=== PATIENT | male | born 1950 | race Caucasian/White ===

== ENCOUNTER 2024-04-26 18:47 | Inpatient (IN) | payer MEDICARE, MEDICAID, SELFPAY ==
--- NOTE | 2024-04-26 18:50 | XR_ITS ---
Examination: Foot, left, 3 views Technique: AP, oblique, lateral views foot, 3 views Date and time of exam: April 26, 2024 1903 hrs. Indications: Injury to the foot today, foot pain Findings: Severe osteopenia Old fracture base first metatarsal No acute fracture Soft tissue vascular calcification 8mm plantar bony calcaneal spur Impression: No acute fracture Given the severe osteopenia, recommend short-term follow-up foot films as clinically warranted
--- NOTE | 2024-04-26 18:50 | XR_ITS ---
Examination:Left hip AP, lateral, AP pelvis 3 views Technique: Hip AP lateral, AP pelvis, 3 views Exam date and time:April 26, 2024 1906 hrs. Indications: Injury to the left hip today, left hip pain Findings: Status post operative reduction internal fixation healed left hip fracture No acute left hip fracture Right hip bones of the pelvis appear intact Impression: No acute hip or pelvic fracture noted If pain persists, recommend short-term follow-up properly centered AP pelvis.
--- NOTE | 2024-04-26 18:52 | EDNOTE_ITS ---
ED General RME/HPI General Chief complaint: Urogenital-Male Stated complaint: PAINFUL URINATION Time Seen by Provider: 04/26/24 18:48 Arrival date/time: 04/26/24 18:47 RME / HPI RME / HPI narrative: 74-year-old male patient with significant history of hypertension, urinary incontinence, diabetes mellitus, was brought in by EMS for dysuria. Patient's been having dysuria for the last 3 days, severity moderate. Also complained of pain to the left hip, according to him he had a surgery on the left hip few months ago. Also complained of pain to the left foot after bumping to the wheelchair. Denies any fever denies any vomiting denies any abdominal pain. Patient lives alone, nonambulatory, on a wheelchair. Related Data Home Medications ?Medication ?Instructions ?Recorded ?Confirmed fluconazole 200 mg tablet 400 mg PO HS ##0 09/18/12 01/16/24 amlodipine 10 mg tablet (Norvasc) 10 mg PO QDAY #0 tabs 09/10/13 01/16/24 multivitamin-ferrous 1 tab PO QDAY 04/09/18 01/16/24 fumarate-folic acid 18 mg-400 mcg tablet (Multi-Day with Iron) omega 3-dha 500 mg-epa 100 mg-fish 1 cap PO QDAY 04/09/18 01/16/24 oil capsule sitagliptin phosphate 50 1 tab PO BID 04/09/18 01/16/24 mg-metformin 1,000 mg tablet psyllium husk 0.52 gram capsule 0.52 g PO QDAY 07/05/18 01/16/24 (Daily Fiber) tamsulosin 0.4 mg capsule 0.4 mg PO QDAY 07/05/18 01/16/24 finasteride 5 mg tablet 5 mg PO QDAY 11/19/18 01/16/24 acetaminophen 650 mg 650 mg PO Q8H PRN Pain 01/16/24 01/16/24 tablet,extended release bisacodyl 10 mg rectal suppository 10 mg ME QDAY PRN Constipation 01/16/24 01/16/24 (Dulcolax (bisacodyl)) ferrous sulfate 325 mg (65 mg 325 mg PO QDAY 01/16/24 01/16/24 iron) tablet ondansetron HCl 4 mg tablet 4 mg PO Q6H PRN Nausea 01/16/24 01/16/24 tramadol 50 mg tablet 50 mg PO Q8H PRN Pain 01/16/24 01/16/24 Previous Rx's ?Medication ?Instructions ?Recorded apixaban 2.5 mg tablet (Eliquis) 2.5 mg PO BID #28 tabs 01/03/24 ciprofloxacin HCl 500 mg tablet 500 mg PO BID #14 tabs 01/18/24 (Cipro) Allergies Allergy/AdvReac Type Severity Reaction Status Date / Time No Known Allergies Allergy Verified 01/16/24 10:13 Review of Systems Review of Systems Narrative Review of Systems: Review of system reviewed and within normal limits except mentioned in HPI ED Exam Narrative Physical exam: VITAL SIGNS: Reviewed. GENERAL APPEARANCE: Alert and interactive, follows commands, no acute distress, HEAD AND FACE: Non-traumatic. ENT: PERRL, pink conjunctivitis, eyelid no trauma, Mucous membrane moist. NECK: Supple, nontender, no nuchal rigidity. CHEST: No tenderness, no crepitus, no paradoxical movement, no retractions. LUNGS: Clear, well ventilated, symmetric, no rales, no wheezing, no ronchi, no stridor, good breath sounds bilaterally. HEART: Regular rate, regular rhythm, no murmur, no gallops. ABDOMEN: Soft, positive bowel sounds, nondistended, no guarding, nontender, no rebound, no masses, RECTAL: Deferred. GENITAL: Deferred. NEUROLOGICAL: Gross motor function intact sensory function intact, Appropriate for age. MUSCULOSKELETAL: low back nontender, full range of motion. EXTREMITIES: Abrasion noted on the toes, nontender, full range of motion. SKIN: Color pink, dry, multiple stage II pressure ulcer noted on the sacrum and perineal area LYMPHATICS: Deferred. Course Quality Measures none Orders Category Date Time Status COVID-19 Screening Questionnaire NOW Care 04/26/24 22:28 Active Decision to Admit X1 Care 04/26/24 22:28 Completed EKG (ED ONLY) *Do not use* NOW Care 04/26/24 20:44 Completed Smith [Urinary Catheter] QS Care 04/26/24 22:02 Active Smith to [place] Routine Care 04/26/24 21:34 Ordered In and Out Catheter X1 Care 04/26/24 18:52 Completed Insert IV NOW Care 04/26/24 20:[address] abdomen pelvis wo con Stat Exams 04/26/24 20:51 Completed EKG (ED Only) Stat Exams 04/26/24 20:43 Draft XR foot comp LT min 3V Stat Exams 04/26/24 18:50 Completed XR hip LT w pelvis 2-3V Stat Exams 04/26/24 18:50 Completed Blood Culture (Lab) Stat Lab 04/26/24 21:31 Received CBC [CBC] Stat Lab 04/26/24 19:36 Completed CMP [Comprehensive Metabolic Panel] Stat Lab 04/26/24 19:36 Completed Lactate (Lactic Acid) Stat Lab 04/26/24 21:31 Completed Procalcitonin Stat Lab 04/26/24 21:31 Completed UA, C/S IF [Urinalysis, C/S if Indicated] Stat Lab 04/26/24 19:25 Completed Urine Culture Stat Lab 04/26/24 19:25 Received Piper/Tazo Inj [Zosyn Inj] 3.375 gm Med 04/26/24 21:29 Discontinued Sodium Chloride 0.9% (P) [Ns 0.9% (P)] 50 ml IV X1 Sod Polystyrene Sulfon Susp [Kayexalate Susp] Med 04/26/24 20:42 Discontinued 30 gm PO X1 ONE Sodium Chloride 0.9% 1000 ml [Ns] 1,000 ml Med 04/26/24 21:34 Discontinued IV 999 mls/hr cefTRIAXone/D5w 1gm IV premix [Rocephin/D5w 1gm IV Med 04/26/24 20:43 Discontinued premix] 50 ml IV X1 Vital Signs Vital signs: Vital Signs Temperature 98.8 F 04/26/24 19:03 Pulse Rate 76 04/26/24 19:03 Respiratory Rate 17 04/26/24 19:03 Blood Pressure 105/72 04/26/24 19:03 Pulse Oximetry (%) 99 04/26/24 19:03 Oxygen Delivery Method Room Air 04/26/24 19:03 [facility] Patient data External records reviewed:: None Clinical information provided by:: none Social determinants that could affect healthcare access:: none Patient has the following chronic illnesses:: Diabetes, hypertension How is presenting disease/condition affected by chronic disease/condition?: e xacerbated by Evaluation data The following diagnostics were reviewed and interpreted by me:: lab results, radiology exam(s) and EKG tracing(s) Lab and/or radiology exams considered but not ordered:: None Interpretation Summary: Laboratory workup significant for leukocytosis of 18.4, creatinine is 1.9, BUN of 35. Potassium of 5.5. Patient urinalysis is significant for UTI, WBC count of 4325., Positive leukocyte esterase, WBC count is 248 EKG as interpreted by me shows sinus rhythm, ventricular rate of 98 bpm, ME interval 196 MS, no ST segment elevation depression noted. CT scan of the abdomen and pelvis showed Consider hepatobiliary sonography to exclude gallstones Left ureteral stent although persistent moderate hydronephrosis Persistent 7 mm calculus mid left ureter Left pyelonephritis Severe emphysematous cystitis X-ray of the foot came back unremarkable. X-ray of the hip came back unremarkable. Medications Medications considered but not ordered:: None Medication administrations:: Medication Administration History Discontinued Medications Ceftriaxone Sodium/Dextrose (Rocephin/D5w 1gm Iv Premix) 50 mls @ 100 mls/hr IV X1 ONE Stop: 04/26/24 21:12 Last Admin: 04/26/24 21:52 Dose: Not Given Documented By: ROCÍO Non-Admin Reason: Cancelled by Provider Piperacillin Sod/Tazobactam (Sod 3.375 gm/ Sodium Chloride) 50 mls @ 100 mls/hr IV X1 ONE Stop: 04/26/24 21:58 Last Infusion: 04/26/24 22:44 Dose: Infused Documented By: Admin: 04/26/24 21:49 Dose: 100 mls/hr Documented By: ROCÍO Sodium Chloride (Ns) 1,000 mls @ 999 mls/hr IV .Q1H1M ONE Stop: 04/26/24 22:34 Last Admin: 04/26/24 21:50 Dose: 999 mls/hr Documented By: ROCÍO Sodium Polystyrene Sulfonate (Sod Polystyrene Sulfon Susp 15 Gm/60 Ml Btl) 30 gm PO X1 ONE Stop: 04/26/24 20:43 Last Admin: 04/26/24 21:51 Dose: 30 gm Documented By: ROCÍO IV fluids, Kayexalate, IV Zosyn also. Consultations Consultation(s) initiated? (list below): Yes Consultation #1 (Physician, Specialty, Details): Spoke with urologist on-call a in [facility], and told me that patient is to be admitted in this hospital there is no need to transfer and continue IV antibiotic and Smith catheter. Diagnosis Differential Diagnosis ED Complaint MDM: Emphysematous cystitis, UTI, acute pyelonephritis, ureterolithiasis Most likely diagnosis given after review of the tests above:: Emphysematous cystitis, UTI, acute pyelonephritis, ureterolithiasis Admission Indicated Admission indicated?: indicated Explain why admission is indicated or not indicated:: Patient is to be admitted for IV antibiotic and hydration and monitoring closely. Admission Request Was there a request for admission?: Yes Admission Attestation Admission request attestation: Discussed case with [] from Hospitalist service regarding admission. Discussed patients ED course, exam findings, labs, and radiology results. The Hospitalist [agrees,declines] to accept the patient for admission. Disposition Plan Disposition Plan: Admit Medical Decision Making MDM Narrative MDM Narrative: 74-year-old male patient with significant history of hypertension, urinary incontinence, diabetes mellitus, was brought in by EMS for dysuria. Patient's been having dysuria for the last 3 days, severity moderate. Also complained of pain to the left hip, according to him he had a surgery on the left hip few months ago. Also complained of pain to the left foot after bumping to the wheelchair. Denies any fever denies any vomiting denies any abdominal pain. Patient lives alone, nonambulatory, on a wheelchair. I spoke with on-call urologist on-call urologist in [facility] and told me that patient does not need to be transferred, just continue IV antibiotic and can call him anytime for questions. Patient received IV fluids, IV Zosyn, and Smith catheter inserted. Smith catheter was inserted, and draining more than 300 cc of thick yellowish urine looks like pus in the urine. I personally spoke with Dr Rojas , urologist of this patient, and told me that patient can be admitted in this hospital, give IV Zosyn IV fluids and continue the Smith. And asked the hospitalist to call him if you have questions. Dr. Morton talked to urologist, and initially agreed to admit the patient. However according to Dr. Morton ,the resident's is concern and have a push back on this admission. They are asking me to seek another opinion from third urologist if the patient can be admitted in this hospital or transferred. Case discussed with DR Lea and he will take care of the issues. Differential Diagnosis Differential Diagnosis: Emphysematous cystitis, UTI, acute pyelonephritis, ureterolithiasis Lab Data 04/26/24 19:36 04/26/24 19:36 Labs: Lab Results 04/26/24 04/26/24 04/26/24 Range/Units 19:25 19:36 21:31 WBC 18.4 H (3.8-10.6) Thou/mm3 RBC 3.76 L (4.50-5.90) Miln/mm3 Hgb 11.0 L (13.5-16.0) g/dL Hct 33.4 L (41.0-53.0) % MCV 89 (80-100) fL MCH 29.3 (25.0-35.0) pg MCHC 32.9 (31.0-37.0) g/dl RDW Std Deviation 49.2 H (35.1-43.9) fL Plt Count 374 (140-440) Thou/mm3 Neut % (Auto) 80 (37-80) % Lymph % (Auto) 11 (10-50) % [place] % (Auto) 6 (0-12) % Eos % (Auto) 1 (0-10) % Baso % (Auto) 0 (0-2.5) % Neut # (Auto) 14.6 H (1.8-7.7) Thou/mm3 Lymph # (Auto) 2.0 (1.0-4.8) Thou/mm3 [place] # (Auto) 1.1 H (0.0-0.8) Thou/mm3 Eos # (Auto) 0.1 (0.0-0.5) Thou/mm3 Baso # (Auto) 0.1 (0.0-0.2) Thou/mm3 Immature Gran # (Auto) 0.39 H (0.00-0.00) Thou/mm3 Absolute Nucleated RBC 0.00 (0.00-0.00) Thou/mm3 Immature Gran % 2 H (0-0) % Nucleated RBC % 0 (0) /100 WBC Sodium 134 L (136-145) mMol/L Potassium 5.5 H (3.4-5.1) mMol/L Chloride 107 (98-107) mMol/L Carbon Dioxide 18.9 L (20.0-31.0) mMol/L Anion Gap 8 (7-16) BUN 35 H (9-23) mg/dL Creatinine 1.9 H (0.6-1.3) mg/dL Estim Creat Clear Calc 36.9 L (>60) mL/min eGFR 36 L (60 - ) See Note BUN/Creatinine Ratio 18 (12-20) Ratio Glucose 181 H (74-106) mg/dL Calculated Osmolality 281 (275-295) Lactic Acid 2.0 (0.4-2.0) mMol/L Calcium 10.0 (8.3-10.6) mg/dL Corrected Calcium 10.0 (8.5-10.1) mg/dL Total Bilirubin 0.4 (0.3-1.2) mg/dL AST < 8 (0-34) U/L ALT 18 (10-49) U/L Alkaline Phosphatase 166 H (46-116) U/L Total Protein 7.7 (5.7-8.2) gm/dL Albumin 4.1 (3.4-4.8) gm/dL Globulin 3.6 H (2.3-3.5) gm/dL Albumin/Globulin Ratio 1.1 L (1.2-2.2) Procalcitonin 0.18 (0.0-0.49) ng/ml Ur Collection Type Clean Catch Urine Color Yellow (Lt Yel-Yel) Urine Clarity Turbid A (Clear/Hazy) Urine pH 6.0 (5.0-7.0) Ur Specific [place] 1.013 (1.001-1.035) Urine Protein 2+ A (Neg - Trace) Urine Glucose (UA) Negative (Negative) Urine Ketones Negative (Negative) Urine Blood 3+ A (Negative) Urine Nitrite Negative (Negative) Urine Bilirubin Negative (Negative) Urine Urobilinogen (Auto) Negative (0.0-1.0) mg/dL Ur Leukocyte Esterase Positive (Negative) Urine RBC 248 H (0-3) /hpf Urine WBC 4325 H (0-5) /hpf Ur Squamous Epith Cells 0 (0-5) /hpf Urine Bacteria None (None) Ur Culture Indicated? Yes Discharge Plan Plan Patient Disposition: Admit Acute Care w/in Hospital Prescriptions/Referrals Prescriptions/Med Rec: No Action finasteride 5 mg tablet 5 mg PO QDAY fluconazole 200 MG tablet 400 mg PO HS Qty: 0 Patient Comments: patient does not now medications amlodipine [Norvasc] 10 MG tablet 10 mg PO QDAY Qty: 0 Patient Comments: patient does not now medications sitagliptin phos-metformin 50-1,000 mg Tablet 1 tab PO BID Patient Comments: patient does not now medications Multi-Day with Iron 18-400 mg-mcg Tablet 1 tab PO QDAY Patient Comments: patient does not now medications omega 4-ryo-nyt-fish oil 500-100 mg Capsule 1 cap PO QDAY Patient Comments: patient does not now medications tamsulosin 0.4 mg Capsule 0.4 mg PO QDAY psyllium husk [Daily Fiber] 0.52 gram Capsule 0.52 g PO QDAY ondansetron HCl [Zofran] 4 mg Tablet 4 mg PO Q6H PRN (Reason: Nausea) tramadol 50 mg Tablet 50 mg PO Q8H PRN (Reason: Pain) acetaminophen 650 mg Tablet Extended Release 650 mg PO Q8H PRN (Reason: Pain) bisacodyl [Dulcolax (bisacodyl)] 10 mg Suppository 10 mg ME QDAY PRN (Reason: Constipation) ferrous sulfate 325 mg (65 mg iron) Tablet 325 mg PO QDAY ciprofloxacin HCl [Cipro] 500 mg tablet 500 mg PO BID Qty: 14 0RF Eliquis 2.5 mg Tablet 2.5 mg PO BID Qty: 28 0RF Hold Instructions: Resume on 01/21/24. Referrals: No Primary/Family,Physician [Primary Care Provider] - In 1 week Problem List Clinical Impression: Emphysematous cystitis, Acute pyelonephritis, Ureterolithiasis Patient/Caregiver Discharge Instructions Print Language: Macedonian Stand Alone Forms: Alina Award Info., Patient Portal Info Letter
[2024-04-26 19:03] VITALS: BP 105/72; PULSE 76; RESP 17; TEMP 37.1; O2SAT 99
[2024-04-26 19:13] VITALS: PULSE 95; RESP 18; O2SAT 98
[2024-04-26 19:52] LABS: Collection Type, Urine Clean Catch; Squamous Epithelial Cell,Urine 0 /hpf (0-5)
[2024-04-26 19:54] VITALS: BMI 24.4
[2024-04-26 19:54] LABS: Basophils # (Auto) 0.1 Thou/mm3 (0.0-0.2); Basophils % (Auto) 0 % (0-2.5); Eosinophils # (Auto) 0.1 Thou/mm3 (0.0-0.5); Eosinophils % (Auto) 1 % (0-10); Hematocrit 33.4 % (41.0-53.0); Immature Granulocytes % (Auto) 2 % (0-0); Immature Granulocytes Auto 0.39 Thou/mm3 (0.00-0.00); Lymphocytes % (Auto) 11 % (10-50); Mean Corpuscular HGB Conc 32.9 g/dl (31.0-37.0); Mean Corpuscular Hemoglobin 29.3 pg (25.0-35.0); Mean Corpuscular Volume 89 fL (80-100); Monocytes # (Auto) 1.1 Thou/mm3 (0.0-0.8); Monocytes % (Auto) 6 % (0-12); Neutrophils # (Auto) 14.6 Thou/mm3 (1.8-7.7); Neutrophils % (Auto) 80 % (37-80); Nucleated Red Blood Cell % 0 /100 WBC (0); Platelet Count 374 Thou/mm3 (140-440); RDW Standard Deviation 49.2 fL (35.1-43.9); Red Blood Count 3.76 Miln/mm3 (4.50-5.90); White Blood Count 18.4 Thou/mm3 (3.8-10.6)
[2024-04-26 20:06] VITALS: BP 124/92; PULSE 97; RESP 17; TEMP 37.2; O2SAT 99
[2024-04-26 20:19] LABS: Alanine Aminotransferase 18 U/L (10-49); Albumin, Serum 4.1 gm/dL (3.4-4.8); Albumin/Globulin Ratio 1.1 (1.2-2.2); Alkaline Phosphatase 166 U/L (46-116); Anion Gap 8 (7-16); Aspartate Amino Transferase < 8 U/L (0-34); BUN/Creatinine Ratio 18 Ratio (12-20); Bilirubin,Total 0.4 mg/dL (0.3-1.2); Blood Urea Nitrogen 35 mg/dL (9-23); Carbon Dioxide 18.9 mMol/L (20.0-31.0); Chloride 107 mMol/L (98-107); Creatinine (Component) 1.9 mg/dL (0.6-1.3); Estimated Creatinine Clearance 36.9 mL/min (>60); Globulin 3.6 gm/dL (2.3-3.5); Glucose 181 mg/dL (74-106); Osmolality,Calculated 281 (275-295); Potassium 5.5 mMol/L (3.4-5.1); Sodium 134 mMol/L (136-145); Total Protein 7.7 gm/dL (5.7-8.2); eGFR 36 See Note
[2024-04-26 20:20] LABS: Bilirubin,Urine Negative (Negative); Blood,Urine 3+ (Negative); Glucose, Urine Negative (Negative); Ketones,Urine Negative (Negative); Leukocyte Esterase,Urine Positive (Negative); Nitrite,Urine Negative (Negative); Protein,Urine 2+ (Neg - Trace); RBC,Urine 248 /hpf (0-3); Specific Gravity,Urine 1.013 (1.001-1.035); Urobilinogen,Urine Negative mg/dL (0.0-1.0); WBC,Urine 4325 /hpf (0-5)
[2024-04-26 20:21] LABS: Clarity,Urine Turbid (Clear/Hazy); Color,Urine Yellow (Lt Yel-Yel); Culture Indicated,Urine Yes
--- NOTE | 2024-04-26 20:43 | EKG_ITS ---
[facility] Test Date: 2024-04-26 Pat Name: JANE OWENS Department: Room: - Gender: Male [employer] Winder: : 1950 Requested By: Ambar Gandhi Order Number: [id number] Reading MD: Ambar Gandhi Measurements Intervals [place] Rate: 98 P: 65 CO: 196 QRS: 56 QRSD: 77 T: 85 QT: 322 QTc: 412 Interpretive Statements SINUS RHYTHM Compared to ECG 05/24/2018 19:22:18 Sinus tachycardia no longer present T-wave abnormality no longer present /store/S0/[id number]/[id number].pdf
--- NOTE | 2024-04-26 20:51 | XR_ITS ---
Examination: CT abdomen and pelvis without contrast. Coronal 3-D reconstructions. Sagittal 2-D reconstructions. Date and time of exam:April 26, 2024 2100 hrs. Comparison December 31, 2023 Indications: Abdominal pain flank pain urinary tract infections this week, history advanced left hydronephrosis 7 mm distal left ureteral calculus on CT abdomen pelvis December 31, 2023 CTDI: vol (mGy): 16 DLP: (mGycm): 835 Technique: Axial images of the abdomen have been obtained, 3 mm slice thickness Intravenous contrast material has not been administered. Low dose protocols were performed. One or more of the following dose reduction techniques were used; automated exposure control, adjustment of the mA and/or KV according to patient size, use of iterative reconstruction technique. Findings: No focal liver lesions Suspicious for small gallstones versus gallbladder sludge Ectatic calcified splenic artery Spleen is not enlarged Bilateral renal cortical thinning Left ureteral stent with persistent moderate hydronephrosis and persistent 7 mm calculus mid left ureter image 103 Right common iliac artery stent Severe emphysematous cystitis, air in the urinary bladder wall and marked urinary bladder wall thickening Right ventricular peritoneal shunt tube Significant prostatomegaly with prostate calcifications Advanced degenerative disc disease L2-L3, chronic osteoporotic compression L1 Impression: Consider hepatobiliary sonography to exclude gallstones Left ureteral stent although persistent moderate hydronephrosis Persistent 7 mm calculus mid left ureter Left pyelonephritis Severe emphysematous cystitis
--- NOTE | 2024-04-26 21:48 | PC.NURSE ---
[facility] FAXED PAPERWORK FOR POSSIBLE UROLOGY TRANSFER
[2024-04-26] MEDS: PIPER/TAZO INJ 3.375 GM in SODIUM CHLORIDE 0.9% (P) 50 ML IV (21:49)
[2024-04-26] MEDS: SODIUM CHLORIDE 0.9% 1000 ML 1,000 ML 999 ML IV (21:50)
[2024-04-26] MEDS: SOD POLYSTYRENE SULFON SUSP 15 GM/60 ML BTL 30 GM PO (21:51)
[2024-04-26 22:32] LABS: Procalcitonin 0.18 ng/ml (0.0-0.49)
--- NOTE | 2024-04-26 23:31 | PD.RESCONSUL ---
HPI Data of Consult Primary Care Provider: Physician No Primary/Family Consult Narrative History of present illness: We received a call regarding a 74-year-old male with a medical history significant for hypertension, urinary incontinence, diabetes mellitus, multiple episodes of urinary tract infections , and recurrent nephrolithiasis, status post lithotripsy and stent placement. The patient presented to the Emergency Department with acute encephalopathy. He reported a decreased appetite, nausea, vomiting, and generalized weakness. Clinical Findings on Presentation: Upon presentation, the patient was noted to be acutely encephalopathic. Vital signs were stable, but laboratory results revealed the following: Leukocytosis: WBC 18.4 Anemia: Hemoglobin 11.0, Hematocrit 33.4 Electrolyte abnormalities: Hyponatremia Hyperkalemia (Potassium 5.5) Low bicarbonate (CO2 18.9) Acute Kidney Injury (JINA): Creatinine 1.9, BUN 35, eGFR 36 Urinalysis (UA): Turbid urine RBCs 248 Leukocyte esterase (LE) positive WBCs 4325 Imaging Findings: A CT abdomen/pelvis was performed, which revealed the following findings: Left ureteral stent with persistent moderate hydronephrosis A 7 mm calculus in the mid left ureter Left pyelonephritis Severe emphysematous cystitis Initial Management & Consultation: The ED team initially attempted to transfer the patient to [facility] for higher-level care. However, after consultation with the urology on-call physician, who indicated that the patient did not require transfer, continue IV antibiotics, and with input from Dr. Rojas, the patient's urologist, who recommended conservative management at this point ,until he sees the patient earliest on Sunday. Despite these opinions, given the severity of the CT findings (obstructive nephrolithiasis causing hydronephrosis, pyelonephritis, emphysematous cystitis), the hospitalist team requested a third opinion regarding the need for transfer. The concern was that if the patient's condition worsened, we would not have access to urological or interventional radiology (IR) services for the next 48 hours, due to the weekend schedule. Request for Transfer: Considering the potential for deterioration, the lack of in-house urology services, and the unavailability of IR services for the next 48 hours, we sought a third opinion and made a request for the patient to be transferred to a facility with the necessary resources for advanced care. This was discussed with Dr. Morton (on-call hospitalist) and Dr. Do (hospitalist director), and the decision was made to pursue transfer and/or 3rd opinion. cc:: cc: Review of Systems Review of Systems Systems Reviewed: All systems reviewed, normal except as documented Exam Vital Signs Temp Pulse Resp BP Pulse Ox O2 Del Method 98.9 F 97 17 124/92 H 99 Room Air 04/26/24 20:06 04/26/24 20:06 04/26/24 20:06 04/26/24 20:06 04/26/24 20:06 04/26/24 20:06 Narrative Exam GENERAL: no acute distress, AAO x3, HEENT: Head AT/ NC. Mucous membranes moist. PERRL. NECK: Supple, no lymphadenopathy, no carotid bruits. CARDIOVASCULAR: RRR. Normal S1/S2, No m/r/g. No pitting edema of bilateral LEs. RESPIRATORY: CTAB. No wheezing, rhonchi, crackles. GASTROINTESTINAL: Abdomen soft,suprapubic tenderness noted,Smith noted, with repeat urine MUSCULOSKELETAL:? no visible joint swelling. NEUROLOGICAL: CN II-XII grossly intact Sensation intact, symmetric. PSYCHIATRIC: Awake and alert, not agitated, normal mood and affect. INTEGUMENTARY: No obvious rashes, no jaundice, normal turgor. Results Labs 04/26/24 19:36 04/26/24 19:36 Labs: Short CBC 04/26/24 Range/Units 19:36 WBC 18.4 H (3.8-10.6) Thou/mm3 Hgb 11.0 L (13.5-16.0) g/dL Hct 33.4 L (41.0-53.0) % Plt Count 374 (140-440) Thou/mm3 [facility] 04/26/24 19:36 Sodium 134 L Potassium 5.5 H Chloride 107 Carbon Dioxide 18.9 L BUN 35 H Creatinine 1.9 H Glucose 181 H Calcium 10.0 Liver Function 04/26/24 Range/Units 19:36 Total Bilirubin 0.4 (0.3-1.2) mg/dL AST < 8 (0-34) U/L ALT 18 (10-49) U/L Alkaline Phosphatase 166 H (46-116) U/L Albumin 4.1 (3.4-4.8) gm/dL Urine 04/26/24 Range/Units 19:25 Urine Color Yellow (Lt Yel-Yel) Urine Clarity Turbid A (Clear/Hazy) Urine pH 6.0 (5.0-7.0) Ur Specific [place] 1.013 (1.001-1.035) Urine Protein 2+ A (Neg - Trace) Urine Glucose (UA) Negative (Negative) Quality Measures Quality Measures none Advance care planning discussed with:: patient Medications Home Medications and Allergies Home Medications ?Medication ?Instructions ?Recorded ?Confirmed ?Type fluconazole 200 mg tablet 400 mg PO HS ##0 09/18/12 01/16/24 History amlodipine 10 mg tablet (Norvasc) 10 mg PO QDAY #0 tabs 09/10/13 01/16/24 History multivitamin-ferrous 1 tab PO QDAY 04/09/18 01/16/24 History fumarate-folic acid 18 mg-400 mcg tablet (Multi-Day with Iron) omega 3-dha 500 mg-epa 100 mg-fish 1 cap PO QDAY 04/09/18 01/16/24 History oil capsule sitagliptin phosphate 50 1 tab PO BID 04/09/18 01/16/24 History mg-metformin 1,000 mg tablet psyllium husk 0.52 gram capsule 0.52 g PO QDAY 07/05/18 01/16/24 History (Daily Fiber) tamsulosin 0.4 mg capsule 0.4 mg PO QDAY 07/05/18 01/16/24 History finasteride 5 mg tablet 5 mg PO QDAY 11/19/18 01/16/24 History acetaminophen 650 mg 650 mg PO Q8H PRN Pain 01/16/24 01/16/24 History tablet,extended release bisacodyl 10 mg rectal suppository 10 mg [place] QDAY PRN Constipation 01/16/24 01/16/24 History (Dulcolax (bisacodyl)) ferrous sulfate 325 mg (65 mg 325 mg PO QDAY 01/16/24 01/16/24 History iron) tablet ondansetron HCl 4 mg tablet 4 mg PO Q6H PRN Nausea 01/16/24 01/16/24 History tramadol 50 mg tablet 50 mg PO Q8H PRN Pain 01/16/24 01/16/24 History Allergies Allergy/AdvReac Type Severity Reaction Status Date / Time No Known Allergies Allergy Verified 01/16/24 10:13 Visit Medications Discontinued Medications Ceftriaxone Sodium/Dextrose (Rocephin/D5w 1gm Iv Premix) 50 mls @ 100 mls/hr IV X1 ONE Stop: 04/26/24 21:12 Last Admin: 04/26/24 21:52 Dose: Not Given Piperacillin Sod/Tazobactam (Sod 3.375 gm/ Sodium Chloride) 50 mls @ 100 mls/hr IV X1 ONE Stop: 04/26/24 21:58 Last Infusion: 04/26/24 22:44 Dose: Infused Sodium Chloride (Ns) 1,000 mls @ 999 mls/hr IV .Q1H1M ONE Stop: 04/26/24 22:34 Last Admin: 04/26/24 21:50 Dose: 999 mls/hr Sodium Polystyrene Sulfonate (Sod Polystyrene Sulfon Susp 15 Gm/60 Ml Btl) 30 gm PO X1 ONE Stop: 04/26/24 20:43 Last Admin: 04/26/24 21:51 Dose: 30 gm Assessment & Plan Plan We received a call regarding a 74-year-old male with a medical history significant for hypertension, urinary incontinence, diabetes mellitus, multiple episodes of urinary tract infections , and recurrent nephrolithiasis, status post lithotripsy and stent placement. The patient presented to the Emergency Department with acute encephalopathy. He reported a decreased appetite, nausea, vomiting, and generalized weakness. #Acute encephalopathy in the setting of UTI #UTI #JINA #Hydronephrosis #Acute unilateral obstructive uropathy #Acute pyelonephritis #Acute emphysematous cystitis Imaging Findings: A CT abdomen/pelvis was performed, which revealed the following findings: Left ureteral stent with persistent moderate hydronephrosis A 7 mm calculus in the mid left ureter Left pyelonephritis Severe emphysematous cystitis Initial Management & Consultation: The ED team initially attempted to transfer the patient to [facility] for higher-level care. However, after consultation with the urology on-call physician, who indicated that the patient did not require transfer, continue IV antibiotics, and with input from Dr. Rojas, the patient's urologist, who recommended conservative management at this point ,until he sees the patient earliest on Sunday. Despite these opinions, given the severity of the CT findings (obstructive nephrolithiasis causing hydronephrosis, pyelonephritis, emphysematous cystitis), the hospitalist team requested a third opinion regarding the need for transfer. The concern was that if the patient's condition worsened, we would not have access to urological or interventional radiology (IR) services for the next 48 hours, due to the weekend schedule. Request for Transfer: Considering the potential for deterioration, the lack of in-house urology services, and the unavailability of IR services for the next 48 hours, we sought a third opinion and made a request for the patient to be transferred to a facility with the necessary resources for advanced care. This was discussed with Dr. Morton (on-call hospitalist) and Dr. Do (hospitalist director), and the decision was made to pursue transfer and/or 3rd opinion. Patient care was discussed with attending physician Dr. Praveen Chang MD PGY-2 Attending Provider Attestation/Addendum I reviewed labs, imaging, EKG, home medications and prior available records. Face to face evaluation was performed by me. I have personally examined the patient and discussed assessment and plan with the IM team. I reviewed the resident note and agree with the plan with exceptions as below. Patient is a 74-year-old male with history of nephrolithiasis status post stent placement who presented with a chief complaint of left flank pain, dysuria, and fevers. He was found to have sepsis secondary to acute UTI. Sepsis secondary to acute UTI: CT scan of the abdomen/pelvis showed emphysematous cystitis and 7 mm stone with stent in place. Initially patient was planned for transfer. Discussed with the transfer center and [facility]: The urologist recommended no transfer but IV antibiotics and follow-up with urology Dr. Rojas. There was some concern that we need emergent urology service in just in case patient develops any sudden urologic obstruction that could lead to fluid blown sepsis/septic shock which will need emergent intervention. Discussed with medical reception specialist and hospital administration: Called Dr. Rojas again who confirmed that he will be able to see the patient and that there is no concern for obstruction at this time. Will start the patient on IV antibiotics. Continue IV fluids. Send urine and blood cultures. Treatment of fevers with Tylenol as needed. CKD stage IIIb: Creatinine appears to be close to baseline. Monitor kidney function. Avoid nephrotoxins. Renally dosed medications.
[2024-04-26 23:48] VITALS: BP 103/88; PULSE 93; RESP 17; TEMP 36.7; O2SAT 98
[2024-04-27] VITALS (12 sets, daily range): BP systolic 110–136; BP diastolic 81–94; PULSE 92–116; RESP 14–98; TEMP 36.1–36.7; O2SAT 96–99; BMI 24.4
--- NOTE | 2024-04-27 00:06 | PD.EDADDENDU ---
Emergency Room Addendum Addendum Narrative: I took over the care from Ambar Gandhi NP at 11 PM on 04/27/2024, see his notes for complete H&P and ED course. I discussed the case with our hospitalist. About the presentation and exam and diagnostics and treatments here. And need of further care in the hospital. Will accept the patient. Ricardo Lea MD
--- NOTE | 2024-04-27 00:42 | ESHP_ITS ---
Documentation for date of: 04/27/24 [facility] History of Present Illness History of present illness: This is a 74-year-old male with a significant medical history including hypertension, urinary incontinence, diabetes mellitus, recurrent urinary tract infections , and extensive nephrolithiasis, status post multiple lithotripsy procedures and stent placement. He is closely followed by outpatient urology Dr. Rojas, who did his urological procedures. The patient presented to the emergency department with altered mental status and dysuria for three days, that was progressively getting worse. On my evaluation, the patient was alert and oriented to person, place, and time and reiterated his urological history. He lives alone and uses a wheelchair due to left hip surgery following a fall. He also reported suprapubic pain, chills, nausea, vomiting, and decreased appetite but denied chest pain, palpitations, loss of consciousness, seizures, or other associated symptoms. Upon presentation patient was was slightly encephalopathic which resolved shortly after IV fluids and Smith placement, vital signs revealed leukocytosis with WBC 18.4, anemia, hemoglobin 11.0, hematocrit 33.4, electrolyte imbalances, hyponatremia, hyperkalemia potassium of 5.5, low bicarb 18.9, further labs revealed JINA with creatinine of 1.9, BUN is 35, EGFR 36, with UA revealed turbid urine, RBCs 248, LE positive, WBC 4325. Imaging findings: A CT abdomen/pelvis was performed, which revealed the following findings: Left ureteral stent with persistent moderate hydronephrosis A 7 mm calculus in the mid left ureter Left pyelonephritis Severe emphysematous cystitis ED Management: The ED team initially attempted to transfer the patient to [facility] for higher-level care. However, after consultation with the urology on-call physician, who indicated that the patient did not require transfer, continue IV antibiotics, and with input from Dr. Rojas, the patient's urologist, who recommended conservative management at this point ,until he sees the patient earliest on Sunday. Despite these opinions, given the severity of the CT findings (obstructive nephrolithiasis causing hydronephrosis, pyelonephritis, emphysematous cystitis), the hospitalist team requested a third opinion regarding the need for transfer. The concern was that if the patient's condition worsened, we would not have access to urological or interventional radiology (IR) services for the next 48 hours, due to the weekend schedule. Request for Transfer: Considering the potential for deterioration, the lack of in-house urology services, and the unavailability of IR services for the next 48 hours, we sought a third opinion and made a request for the patient to be transferred to a facility with the necessary resources for advanced care. This was discussed with Dr. Morton (on-call hospitalist) and Dr. Do (hospitalist director), and the decision was made to pursue transfer and/or 3rd opinion. Further: However Emergency department was not satisfied regarding our request, they escalated the matter to administration. This led to the [employer]AGE [employer] of [facility], Mrs. Claudia Sarmiento, personally reaching out to Dr. Do. Subsequently, urologist Dr. Rojas was contacted, and the patient?s hospital course and our concerns were thoroughly discussed. This included the unavailability of urological or interventional radiology services for the next [address] Rojas ultimately accepted the consultation and assured that the patient would be seen by him latest on Sunday. And stated that patient can be managed conservatively at this point. Admission: Eventually decision was made to admit patient for further management of UTI as well as JINA, hydronephrosis, unilateral obstructive uropathy and acute pyelonephritis, severe emphysematous cystitis treatment and management. In ED patient received Zosyn, NS, Kayexalate and was admitted for further management. PMH: As above PSH: Left total knee replacement, multiple back surgeries has multiple rods and screws in his back, removal of bone spurs from back SH: Denies smoking. No history of illicit drug use., Lives alone, uses wheelchair. FH: Nonsignificant Allergies: NKDA Review of Systems Review of Systems Systems Reviewed: All systems reviewed, normal except as documented Past Medical History Past Medical History NEUROLOGIC: Positive Neurological Disorders, Meningitis and Spinal Cord Injury CARDIAC: Positive Cardiac Disorders and Hypertension RESPIRATORY: Positive Sleep Apnea (CPAP) GASTROINTESTINAL: Positive Gastrointestinal Disorders and Obesity GENITOURINARY: Positive Genitourinary Disorders, Kidney Stones and Benign Prostatic Hyperplasia MUSCULOSKELETAL: Positive Musculoskeletal Disorders, Arthritis, Degenerative Disk Disease and Fractures ENDOCRINE: Positive Endocrine Disorders and Diabetes Mellitus Type 2 OTHER HISTORY: Positive Falls, Chicken Pox, Measles, Mumps and Rubella (F[place] Measles) Family History FAMILY HISTORY: Positive Family Cancer Surgical History SURGICAL: Positive Angiogram Exam Vital Signs Temp Pulse Resp BP Pulse Ox O2 Del Method 98.1 F 93 17 103/88 H 98 Room Air 04/26/24 23:48 04/26/24 23:48 04/26/24 23:48 04/26/24 23:48 04/26/24 23:48 04/26/24 23:48 Narrative Exam GENERAL: no acute distress, AAO x3, HEENT: Head AT/ NC. Mucous membranes moist. PERRL. NECK: Supple, no lymphadenopathy, no carotid bruits. CARDIOVASCULAR: RRR. Normal S1/S2, No m/r/g. No pitting edema of bilateral LEs. RESPIRATORY: CTAB. No wheezing, rhonchi, crackles. GASTROINTESTINAL: Abdomen soft,suprapubic tenderness noted,Smith noted, with repeat urine MUSCULOSKELETAL:? no visible joint swelling. NEUROLOGICAL: CN II-XII grossly intact Sensation intact, symmetric. PSYCHIATRIC: Awake and alert, not agitated, normal mood and affect. INTEGUMENTARY: No obvious rashes, no jaundice, normal turgor. Results: Labs 04/27/24 05:15 04/27/24 05:15 Labs: Short CBC 04/26/24 Range/Units 19:36 WBC 18.4 H (3.8-10.6) Thou/mm3 Hgb 11.0 L (13.5-16.0) g/dL Hct 33.4 L (41.0-53.0) % Plt Count 374 (140-440) Thou/mm3 BMP 04/26/24 19:36 Sodium 134 L Potassium 5.5 H Chloride 107 Carbon Dioxide 18.9 L BUN 35 H Creatinine 1.9 H Glucose 181 H Calcium 10.0 Liver Function 04/26/24 Range/Units 19:36 Total Bilirubin 0.4 (0.3-1.2) mg/dL AST < 8 (0-34) U/L ALT 18 (10-49) U/L Alkaline Phosphatase 166 H (46-116) U/L Albumin 4.1 (3.4-4.8) gm/dL Urine 04/26/24 Range/Units 19:25 Urine Color Yellow (Lt Yel-Yel) Urine Clarity Turbid A (Clear/Hazy) Urine pH 6.0 (5.0-7.0) Ur Specific [place] 1.013 (1.001-1.035) Urine Protein 2+ A (Neg - Trace) Urine Glucose (UA) Negative (Negative) Quality Measures Quality Measures none Advance care planning discussed with:: patient Medications Home Medications and Allergies Home Medications ?Medication ?Instructions ?Recorded ?Confirmed ?Type fluconazole 200 mg tablet 400 mg PO HS ##0 09/18/12 01/16/24 History amlodipine 10 mg tablet (Norvasc) 10 mg PO QDAY #0 tabs 09/10/13 01/16/24 History multivitamin-ferrous 1 tab PO QDAY 04/09/18 01/16/24 History fumarate-folic acid 18 mg-400 mcg tablet (Multi-Day with Iron) omega 3-dha 500 mg-epa 100 mg-fish 1 cap PO QDAY 04/09/18 01/16/24 History oil capsule sitagliptin phosphate 50 1 tab PO BID 04/09/18 01/16/24 History mg-metformin 1,000 mg tablet psyllium husk 0.52 gram capsule 0.52 g PO QDAY 07/05/18 01/16/24 History (Daily Fiber) tamsulosin 0.4 mg capsule 0.4 mg PO QDAY 07/05/18 01/16/24 History finasteride 5 mg tablet 5 mg PO QDAY 11/19/18 01/16/24 History acetaminophen 650 mg 650 mg PO Q8H PRN Pain 01/16/24 01/16/24 History tablet,extended release bisacodyl 10 mg rectal suppository 10 mg ID QDAY PRN Constipation 01/16/24 01/16/24 History (Dulcolax (bisacodyl)) ferrous sulfate 325 mg (65 mg 325 mg PO QDAY 01/16/24 01/16/24 History iron) tablet ondansetron HCl 4 mg tablet 4 mg PO Q6H PRN Nausea 01/16/24 01/16/24 History tramadol 50 mg tablet 50 mg PO Q8H PRN Pain 01/16/24 01/16/24 History Allergies Allergy/AdvReac Type Severity Reaction Status Date / Time No Known Allergies Allergy Verified 01/16/24 10:13 Visit Medications Acetaminophen (Acetaminophen 325 Mg Tablet) 650 mg PO Q6H PRN PRN Reason: PAIN OR FEVER > 101 Stop: 05/27/24 00:17 Dextrose (Dextrose 50%-Water Inj 50 Ml Syringe) 25 ml IV Q15MIN PRN PRN Reason: BG 50-70 responsive npo pt Stop: 05/27/24 00:31 Dextrose (Dextrose 50%-Water Inj 50 Ml Syringe) 50 ml IV Q15MIN PRN PRN Reason: BG <50 OR BG <70 & pt unresponsive Stop: 05/27/24 00:31 Finasteride (Finasteride 5 Mg Tablet) 5 mg PO QDAY EMELIA Stop: 05/27/24 08:59 Glucagon (Glucagon Inj 1 Mg Vial) 1 mg IM Q15MIN PRN PRN Reason: BG <70, and no IV access Heparin Sodium (Porcine) (Heparin Sod Inj 5000 Unit/Ml Vial) 5,000 unit SC Q12HR EMELIA Stop: 05/11/24 00:29 Sodium Chloride (Ns) 1,000 mls @ 75 mls/hr IV .[id number] [facility] Stop: 04/27/24 13:49 Piperacillin/Tazobactam/Dextrose (Zosyn) 3.375 gm in 50 mls @ 12.5 mls/hr IV Q8HR [facility] Stop: 05/04/24 05:59 Insulin Human Lispro (Insulin Lispro (Admelog) 1 Unit/0.01 Ml Unit) 0 [facility]; Protocol Stop: 05/27/24 07:29 Ondansetron HCl (Ondansetron Inj 2 Mg/Ml Inj 2 Ml) 4 mg IV Q6H PRN; Protocol PRN Reason: NAUSEA OR VOMITING Stop: 05/27/24 00:17 Pantoprazole Sodium (Pantoprazole 40 Mg Tablet) 40 mg PO QDAY [facility] Stop: 05/27/24 08:59 Sennosides (Senna Tablet) 1 tab PO QDAY [facility]; Protocol Stop: 05/27/24 08:59 Tamsulosin HCl (Tamsulosin Hcl 0.4 Mg Capsule) 0.4 mg PO QDAY [facility] Stop: 05/27/24 08:59 Discontinued Medications Ceftriaxone Sodium/Dextrose (Rocephin/D5w 1gm Iv Premix) 50 mls @ 100 mls/hr IV X1 ONE Stop: 04/26/24 21:12 Last Admin: 04/26/24 21:52 Dose: Not Given Piperacillin Sod/Tazobactam (Sod 3.375 gm/ Sodium Chloride) 50 mls @ 100 mls/hr IV X1 ONE Stop: 04/26/24 21:58 Last Infusion: 04/26/24 22:44 Dose: Infused Sodium Chloride (Ns) 1,000 mls @ 999 mls/hr IV .Q1H1M ONE Stop: 04/26/24 22:34 Last Infusion: 04/27/24 00:24 Dose: Infused Sodium Polystyrene Sulfonate (Sod Polystyrene Sulfon Susp 15 Gm/60 Ml Btl) 30 gm PO X1 ONE Stop: 04/26/24 20:43 Last Admin: 04/26/24 21:51 Dose: 30 gm Assessment & Plan Plan 74-year-old male with past medical history of hypertension, urinary incontinence, DM, multiple episodes of urinary tract infections, recurrent hydronephrosis status post lithotripsy and stent placement was admitted for acute encephalopathy secondary due to UTI as well as JINA, hydronephrosis, unilateral obstructive uropathy and acute pyelonephritis, severe emphysematous cystitis treatment and management. #Acute encephalopathy in the setting of UTI and obstructive uropathy #UTI #JINA versus JINA on CKD #left unilateral obstructive uropathy #left Hydronephrosis #Left pyelonephritis #Severe emphysematous cystitis Patient Biba to emergency department due to mild confusion, patient stated that recently he was more somnolent, had low appetite, had 1 episode of nausea and vomiting. Labs revealed leukocytosis, anemia, electrolyte disbalance, potassium of 5.5, creatinine of 1.9, BUN is 35, EGFR 36 UA revealed turbid urine with WBC 4325, RBC 248, positive LE Patient was complaining of dysuria and suprapubic tenderness Imaging Findings: A CT abdomen/pelvis was performed, which revealed the following findings: Left ureteral stent with persistent moderate hydronephrosis A 7 mm calculus in the mid left ureter Left pyelonephritis Severe emphysematous cystitis -Admit to [facility] -IVF -Zosyn -Follow urine culture/blood culture -Smith catheter -Continue home finasteride and tamsulosin -Urology is on board, accepted the case #DM type II Hold home medication -Insulin sliding scale -Follow A1c -Carb consistent diet #History of hypertension Currently BP is under control -Monitor vital signs #Electrolyte disbalance #Hyperkalemia #Hyponatremia Patient was given Kayexalate in ED Patient received normal saline bolus currently is on maintenance EKG without peaked T waves -Close monitor -Management as needed Patient stated that he is taking fluconazole 200 mg daily for last 30 years, however is not sure why Patient also stated that he is not taking Eliquis Disposition:Medsurge DVT prophylaxis: heparin GI prophylaxis: PPI Diet: carb consistent Lines: PIV CODE STATUS:Full code Patient care was discussed with attending physician Dr. Praveen Chang MD PGY-2 I have carefully reviewed this document. Due to imperfections in the voice software, there could be grammatical errors including phonetic/typographic errors. This in no way compromises the medical care the patient is receiving Attending Provider Attestation/Addendum I reviewed labs, imaging, EKG, home medications and prior available records. Face to face evaluation was performed by me. I have personally examined the patient and discussed assessment and plan with the IM team. I reviewed the resident note and agree with the plan with exceptions as below. Patient is a 74-year-old male with history of nephrolithiasis status post stent placement who presented with a chief complaint of left flank pain, dysuria, and fevers. He was found to have sepsis secondary to acute UTI. Sepsis secondary to acute UTI: CT scan of the abdomen/pelvis showed emphysematous cystitis and 7 mm stone with stent in place. Initially patient was planned for transfer. Discussed with the transfer center and Kerrie dejesus: The urologist recommended no transfer but IV antibiotics and follow-up with urology Dr. Rojas. There was some concern that we need emergent urology service in just in case patient develops any sudden urologic obstruction that could lead to fluid blown sepsis/septic shock which will need emergent intervention. Discussed with emergency medical services coordinator and hospital administration: Called Dr. Rojas again who confirmed that he will be able to see the patient and that there is no concern for obstruction at this time. Will start the patient on IV antibiotics. Continue IV fluids. Send urine and blood cultures. Treatment of fevers with Tylenol as needed. CKD stage IIIb: Creatinine appears to be close to baseline. Monitor kidney function. Avoid nephrotoxins. Renally dosed medications.
[2024-04-27] MEDS: HEPARIN SOD INJ 5000 UNIT/ML VIAL SC ×3 (01:25→21:57)
--- NOTE | 2024-04-27 01:36 | PC.NURSE ---
booties placed on both feet per arely [id number]
[2024-04-27] MEDS: SODIUM CHLORIDE 0.9% 1000 ML 1,000 ML 75 ML IV ×2 (01:51→21:58)
[2024-04-27 05:47] LABS: Basophils # (Auto) 0.1 Thou/mm3 (0.0-0.2); Basophils % (Auto) 0 % (0-2.5); Eosinophils # (Auto) 0.1 Thou/mm3 (0.0-0.5); Eosinophils % (Auto) 1 % (0-10); Hematocrit 32.3 % (41.0-53.0); Hemoglobin 10.5 g/dL (13.5-16.0); Immature Granulocytes % (Auto) 2 % (0-0); Immature Granulocytes Auto 0.27 Thou/mm3 (0.00-0.00); Lymphocytes # (Auto) 2.2 Thou/mm3 (1.0-4.8); Lymphocytes % (Auto) 14 % (10-50); Mean Corpuscular HGB Conc 32.5 g/dl (31.0-37.0); Mean Corpuscular Hemoglobin 29.1 pg (25.0-35.0); Mean Corpuscular Volume 90 fL (80-100); Monocytes # (Auto) 1.2 Thou/mm3 (0.0-0.8); Monocytes % (Auto) 7 % (0-12); Neutrophils # (Auto) 12.5 Thou/mm3 (1.8-7.7); Neutrophils % (Auto) 77 % (37-80); Nucleated Red Blood Cell % 0 /100 WBC (0); Platelet Count 348 Thou/mm3 (140-440); RDW Standard Deviation 49.6 fL (35.1-43.9); Red Blood Count 3.61 Miln/mm3 (4.50-5.90); White Blood Count 16.4 Thou/mm3 (3.8-10.6)
[2024-04-27 06:13] LABS: Alanine Aminotransferase 14 U/L (10-49); Albumin, Serum 3.7 gm/dL (3.4-4.8); Albumin/Globulin Ratio 1.1 (1.2-2.2); Alkaline Phosphatase 154 U/L (46-116); Anion Gap 10 (7-16); Aspartate Amino Transferase 10 U/L (0-34); BUN/Creatinine Ratio 17 Ratio (12-20); Bilirubin,Total 0.4 mg/dL (0.3-1.2); Blood Urea Nitrogen 31 mg/dL (9-23); Calcium 9.6 mg/dL (8.3-10.6); Calcium (Corrected) 9.8 mg/dL (8.5-10.1); Carbon Dioxide 18.8 mMol/L (20.0-31.0); Cardiac Risk Estimate 5.3 RATIO (4.0-6.7); Chloride 111 mMol/L (98-107); Cholesterol 143 mg/dL (132-200); Creatinine (Component) 1.8 mg/dL (0.6-1.3); Estimated Creatinine Clearance 38.9 mL/min (>60); Globulin 3.4 gm/dL (2.3-3.5); Glucose 165 mg/dL (74-106); HDL Cholesterol 27 mg/dL (40-60); LDL Cholesterol,Calculated 71 mg/dL (0-130); Osmolality,Calculated 289 (275-295); Phosphorous 4.1 mg/dL (2.4-5.1); Sodium 140 mMol/L (136-145); Thyroid Stimulating Hormone 0.37 uIU/mL (0.55-4.78); Total Protein 7.1 gm/dL (5.7-8.2); Triglycerides 223 mg/dL (30-150); eGFR 39 See Note
[2024-04-27] MEDS: PIPER/TAZO 3.375 GM 3.375 GM/50 ML BAG IV ×3 (06:15→21:57)
[2024-04-27 06:32] LABS: Glucose Estimated Average 137 mg/dL (80-131); Hemoglobin A1C 6.4 % Hgb (4.8-6.0)
[2024-04-27] MEDS: INSULIN LISPRO (AdmeLOG) 1 UNIT/0.01 ML UNIT SC ×3 (08:16→21:59)
[2024-04-27] MEDS: FINASTERIDE 5 MG TABLET PO (09:17)
[2024-04-27] MEDS: PANTOPRAZOLE 40 MG TABLET PO (09:17)
[2024-04-27] MEDS: SENNA TABLET 1 TAB PO (09:17)
[2024-04-27] MEDS: TAMSULOSIN HCL 0.4 MG CAPSULE PO (09:17)
--- NOTE | 2024-04-27 15:17 | ESPR_ITS ---
<Statement entered by Gerardo Monique MD - 04/28/24 09:13> Senior Resident Attestation: I supervised/discussed management plan with biology intern physician Dr. Rodriguez, and was involved in the care of this patient. I personally saw and examined the patient and discussed the assessment and plan with the entire medicine team, including my attending. I agree with the assessment and plan as documented. Patient was seen and examined at the bedside. Patient is pending urology evaluation, likely tomorrow. He does not have any complains today. We will continue current management and monitor patient. Patient's care was discussed with attending physician, Dr. Do. Gerardo Monique MD PGY-2. Documentation for date of: 04/27/24 Subjective Subjective Interval history: 04/27: Patient is an overnight admit. Patient is seen and examined at bedside. Patient states that he has been experiencing urinary incontinence with complete loss of bladder control with some dysuria, and he called his urologist Dr. Wilson with whom patient has an appointment in the next couple weeks stated the doctor told him that he will see him in clinic outpatient however patient could not handle the incontinence at home so he came to the ED. upon my examination patient was alert and oriented patient denied any pain in the abdomen or the chest. Patient also stated that he started having diarrhea since last night likely due to Kayexalate given in the ED. patient states that right now he is not in pain but sometimes he has pain in the left lower flank region likely from the urethral stone he is told to have. Patient also states that he has long history of nephrolithiasis which he often gets lithotripsy. Patient also recently had a hip replacement surgery approximately 3 months ago for which he has been using a wheelchair to get around as well as regular PT visits at home. Patient lives at home by himself. Patient has no other complaints. Exam Vital Signs Temp Pulse Resp BP Pulse Ox O2 Del Method 97.1 F 101 H 19 117/92 H 98 Room Air 04/27/24 12:00 04/27/24 12:00 04/27/24 12:00 04/27/24 12:00 04/27/24 12:00 04/27/24 12:00 Narrative Exam GENERAL: A&Ox3 . Awake, Not in acute distress NEURO: no focal neurological deficits HEENT: Atraumatic, Normocephalic. mucous membranes moist. Eyes open, symmetrical, & clear HEART: Normal Heart Sounds LUNGS: Clear to auscultation with no wheezing or crackles. ABDOMEN: soft, non-distended, non-tender, no guarding or rebound tenderness SKIN: No Rash or ecchymoses, Pt. has a gonsales cathether with cloudy urine output EXTREMITIES: No edema, tenderness, able to move all 4 extremities, pedal pulses palpated Objective Labs 04/28/24 04:01 04/28/24 04:01 Labs: Laboratory Results - last 24 hr 04/26/24 04/26/24 04/26/24 19:25 19:36 21:31 WBC 18.4 H RBC 3.76 L Hgb 11.0 L Hct 33.4 L MCV 89 MCH 29.3 MCHC 32.9 RDW Std Deviation 49.2 H Plt Count 374 Neut % (Auto) 80 Lymph % (Auto) 11 [place] % (Auto) 6 Eos % (Auto) 1 Baso % (Auto) 0 Neut # (Auto) 14.6 H Lymph # (Auto) 2.0 [place] # (Auto) 1.1 H Eos # (Auto) 0.1 Baso # (Auto) 0.1 Immature Gran # (Auto) 0.39 H Absolute Nucleated RBC 0.00 Immature Gran % 2 H Nucleated RBC % 0 Sodium 134 L Potassium 5.5 H Chloride 107 Carbon Dioxide 18.9 L Anion Gap 8 BUN 35 H Creatinine 1.9 H Estim Creat Clear Calc 36.9 L eGFR 36 L BUN/Creatinine Ratio [address] Glu mg/dL Hemoglobin A1c Calculated Osmolality 281 Lactic Acid 2.0 Calcium 10.0 Corrected Calcium 10.0 Phosphorus Magnesium Total Bilirubin 0.4 AST < 8 ALT 18 Alkaline Phosphatase 166 H Total Protein 7.7 Albumin 4.1 Globulin 3.6 H Albumin/Globulin Ratio 1.1 L Triglycerides Cholesterol LDL Cholesterol, Calc HDL Cholesterol Cholesterol/HDL Ratio Procalcitonin 0.18 TSH Ur Collection Type Clean Catch Urine Color Yellow Urine Clarity Turbid A Urine pH 6.0 Ur Specific [place] 1.013 Urine Protein 2+ A Urine Glucose (UA) Negative Urine Ketones Negative Urine Blood 3+ A Urine Nitrite Negative Urine Bilirubin Negative Urine Urobilinogen (Auto) Negative Ur Leukocyte Esterase Positive Urine RBC 248 H Urine WBC 4325 H Ur Squamous Epith Cells 0 Urine Bacteria None Ur Culture Indicated? Yes 04/27/24 05:15 WBC 16.4 H RBC 3.61 L Hgb 10.5 L Hct 32.3 L MCV 90 MCH 29.1 MCHC 32.5 RDW Std Deviation 49.6 H Plt Count 348 Neut % (Auto) 77 Lymph % (Auto) 14 [place] % (Auto) 7 Eos % (Auto) 1 Baso % (Auto) 0 Neut # (Auto) 12.5 H Lymph # (Auto) 2.2 [place] # (Auto) 1.2 H Eos # (Auto) 0.1 Baso # (Auto) 0.1 Immature Gran # (Auto) 0.27 H Absolute Nucleated RBC 0.00 Immature Gran % 2 H Nucleated RBC % 0 Sodium 140 Potassium 5.0 D Chloride 111 H Carbon Dioxide 18.8 L Anion Gap 10 BUN 31 H Creatinine 1.8 H Estim Creat Clear Calc 38.9 L eGFR 39 L BUN/Creatinine Ratio [address]ucose [address] Glu mg/dL 137 H Hemoglobin A1c 6.4 H Calculated Osmolality 289 Lactic Acid Calcium 9.6 Corrected Calcium 9.8 Phosphorus 4.1 Magnesium 2.0 Total Bilirubin 0.4 AST 10 ALT 14 Alkaline Phosphatase 154 H Total Protein 7.1 Albumin 3.7 Globulin 3.4 Albumin/Globulin Ratio 1.1 L Triglycerides 223 H Cholesterol 143 LDL Cholesterol, Calc 71 HDL Cholesterol 27 L Cholesterol/HDL Ratio 5.3 Procalcitonin TSH 0.37 L Ur Collection Type Urine Color Urine Clarity Urine pH Ur Specific [place] Urine Protein Urine Glucose (UA) Urine Ketones Urine Blood Urine Nitrite Urine Bilirubin Urine Urobilinogen (Auto) Ur Leukocyte Esterase Urine RBC Urine WBC Ur Squamous Epith Cells Urine Bacteria Ur Culture Indicated? Quality Measures Quality Measures none Advance care planning discussed with:: patient Assessment & Plan Assessment Current Active Medications: Generic Name Dose Route Start Last Admin Trade Name Freq PRN Reason Stop Dose Admin Acetaminophen 650 mg 04/27/24 00:18 Acetaminophen 325 Mg Tablet PO 05/27/24 00:17 Q6H PRN PAIN OR FEVER > 101 Dextrose 25 ml 04/27/24 00:32 Dextrose 50%-Water Inj 50 Ml Syringe IV 05/27/24 00:31 Q15MIN PRN BG 50-70 responsive npo pt Dextrose 50 ml 04/27/24 00:32 Dextrose 50%-Water Inj 50 Ml Syringe IV 05/27/24 00:31 Q15MIN PRN BG <50 OR BG <70 & pt unresponsive Finasteride 5 mg 04/27/24 09:00 04/27/24 09:17 Finasteride 5 Mg Tablet PO 05/27/24 08:59 5 mg QDAY EMELIA Administration Glucagon 1 mg 04/27/24 00:32 Glucagon Inj 1 Mg Vial IM Q15MIN PRN BG <70, and no IV access Heparin Sodium (Porcine) 5,000 unit 04/27/24 00:30 04/27/24 09:17 Heparin Sod Inj 5000 Unit/Ml Vial SC 05/11/24 00:29 5,000 unit Q12HR EMELIA Administration Sodium Chloride 1,000 mls @ 75 mls/hr 04/27/24 00:30 04/27/24 01:51 Ns IV 04/28/24 03:09 75 mls/hr .[id number] EMELIA Administration Piperacillin/Tazobactam/Dextrose 3.375 gm in 50 mls @ 12.5 mls/hr 04/27/24 06:00 04/27/24 13:21 Zosyn IV 05/04/24 05:59 12.5 mls/hr Q8HR EMELIA Administration Insulin Human Lispro 0 unit 04/27/24 07:30 04/27/24 11:49 Insulin Lispro (Admelog) 1 Unit/0.01 Ml Unit SC 05/27/24 07:29 Not Given ACHS EMELIA Protocol Ondansetron HCl 4 mg 04/27/24 00:18 Ondansetron Inj 2 Mg/Ml Inj 2 Ml IV 05/27/24 00:17 Q6H PRN NAUSEA OR VOMITING Protocol Pantoprazole Sodium 40 mg 04/27/24 09:00 04/27/24 09:17 Pantoprazole 40 Mg Tablet PO 05/27/24 08:59 40 mg QDAY EMELIA Administration Sennosides 1 tab 04/27/24 09:00 04/27/24 09:17 Senna Tablet PO 05/27/24 08:59 1 tab QDAY EMELIA Administration Protocol Tamsulosin HCl 0.4 mg 04/27/24 09:00 04/27/24 09:17 Tamsulosin Hcl 0.4 Mg Capsule PO 05/27/24 08:59 0.4 mg QDAY EMELIA Administration Plan 74-year-old male with past medical history of hypertension, urinary incontinence, DM, multiple episodes of urinary tract infections, recurrent hydronephrosis status post lithotripsy and stent placement was admitted for acute encephalopathy secondary due to UTI as well as JINA, hydronephrosis, unilateral obstructive uropathy and acute pyelonephritis, severe emphysematous cystitis treatment and management. #obstructive uropathy #Pyuria in the setting #UTI #JINA versus JINA on CKD #left unilateral obstructive uropathy #left Hydronephrosis #Left pyelonephritis #Severe emphysematous cystitis -Patient Biba to emergency department due to mild confusion, patient stated that recently he was more somnolent, had low appetite, had 1 episode of nausea and vomiting. -Labs revealed leukocytosis, anemia, electrolyte disbalance, potassium of 5.5, creatinine of 1.9, BUN is 35, EGFR 36 -UA revealed turbid urine with WBC 4325, RBC 248, positive LE -Patient was complaining of dysuria and suprapubic tenderness -A CT abdomen/pelvis was performed, which revealed the following findings: -Left ureteral stent with persistent moderate hydronephrosis -A 7 mm calculus in the mid left ureter -Left pyelonephritis -Severe emphysematous cystitis Plan: -IVF -Zosyn started 04/26- -Follow urine culture/blood culture -Gonsales catheter- with cloudy output -Continue home finasteride and tamsulosin -Urology is on board, Dr. Rojas accepted the case and will be seeing the patient on saturday 04/28 #DM type II --blood glucose is 165 -HbA1c 6.4 on 04/27/24 Plan: -Hold home medication -Insulin sliding scale -Carb consistent diet #History of hypertension -Currently BP is under control -Monitor vital signs #Electrolyte disbalance #Hyperkalemia #Hyponatremia -Patient was given Kayexalate in ED -Patient received normal saline bolus currently is on maintenance -EKG without peaked T waves -Close monitor -Management as needed Other -TSH 0.37 today -Will order T3 on to a.m. labs Patient stated that he is taking fluconazole 200 mg daily for last 30 years, however is not sure why Patient also stated that he is not taking Eliquis Disposition:Medsurge for in patient management of UTI DVT prophylaxis: heparin GI prophylaxis: PPI Diet: carb consistent Lines: PIV CODE STATUS:Full code Assessment and plan discussed with my senior resident Dr. Monique & attending physician Dr. Ernestina Rodriguez (PGY-1)- Internal medicine resident Attending Provider Attestation/Addendum IOmayra DO, attest that I was physically present for the [place] portions of the service and evaluated the patient with the resident and I reviewed and discussed the case with the resident and agree with the resident's findings and plans of care as documented above Spoke to administration last night at 11:57pm regarding patient with confirmation that urology will be able to consult on patient as they know patient well. Urology did not feel that the patient needs nephrostomy tube for the moderate hydronephrosis as patient already has a ureteral stent and emphysematous cystitis can be treated with IV abx here at our facility. Patient was seen this morning and states he is doing well. Patient has been incontinent for the past few days and subsequently came to ED. Patient states he takes care of himself at home and denies any fevers or chills. He denies any suprapubic pain, but endorses some dysuria. He states that he has been following urology who plans to remove the ureteral stent once patient is more mobile s/p hip fracture repair. However, patient has been wheelchair bound. He states he is feeling improved after he was started on IV zosyn. Will continue at this time while pending urine cultures to narrow abx coverage. Will order physical therapy as well.
[2024-04-27 16:03] LABS: Free T4 (Free Thyroxine) 1.02 ng/dL (0.89-1.76)
--- NOTE | 2024-04-27 18:56 | PC.CC ---
Pt Oliver Hernandez is a 74 yr old male admitted to hospitalist services for obstructive uropathy. STOCK ANALYST CC met with pt at bedside to complete initial assessment. STOCK ANALYST CC introduced self and role in pt care. At time of encounter pt is noted to be alert and oriented to person, place and situation. Pt expressed understanding admission order and is in agreement with treatment plan. Pt able to confirm demographic information. Pt is from home [address], where he lives alone. Pt identifies his son Enrique Hernandez [phone] as surrogate DM. Per pt his son's friend helps him out in his home running errands and with minimal house task. Pt reports have access to a 4-point, 2 wheel and rollator walkers. Pt has a 3 in 1 commode/shower chair. Pt reports being mostly independent with his ADLs, but states his son's friend is a support when he showers. PT is type II diabetic. Pt is not on dialysis. Pt is followed by Dr. Pringle for primary care. Pt is followed by Dr. Rojas. Per pt he has access to food items and all working utilities in the home. Pt states he feels safe in his home. At time of D/c pt wants to return home. Pt states he will require transport. Advance Directive not discussed at this time.
[2024-04-28] VITALS (9 sets, daily range): BP systolic 108–137; BP diastolic 73–93; PULSE 71–100; RESP 16–100; TEMP 36.1–37.1; O2SAT 97–99; BMI 14.0
[2024-04-28] MEDS: PIPER/TAZO 3.375 GM 3.375 GM/50 ML BAG IV ×3 (05:00→21:06)
[2024-04-28 05:31] LABS: Basophils # (Auto) 0.1 Thou/mm3 (0.0-0.2); Basophils % (Auto) 1 % (0-2.5); Eosinophils # (Auto) 0.2 Thou/mm3 (0.0-0.5); Eosinophils % (Auto) 1 % (0-10); Hematocrit 27.6 % (41.0-53.0); Hemoglobin 8.9 g/dL (13.5-16.0); Immature Granulocytes % (Auto) 2 % (0-0); Immature Granulocytes Auto 0.22 Thou/mm3 (0.00-0.00); Lymphocytes # (Auto) 2.5 Thou/mm3 (1.0-4.8); Lymphocytes % (Auto) 20 % (10-50); Mean Corpuscular HGB Conc 32.2 g/dl (31.0-37.0); Mean Corpuscular Hemoglobin 29.5 pg (25.0-35.0); Mean Corpuscular Volume 91 fL (80-100); Monocytes # (Auto) 1.1 Thou/mm3 (0.0-0.8); Monocytes % (Auto) 8 % (0-12); Neutrophils # (Auto) 8.8 Thou/mm3 (1.8-7.7); Neutrophils % (Auto) 69 % (37-80); Nucleated Red Blood Cell % 0 /100 WBC (0); Platelet Count 252 Thou/mm3 (140-440); RDW Standard Deviation 50.4 fL (35.1-43.9); Red Blood Count 3.02 Miln/mm3 (4.50-5.90); White Blood Count 12.8 Thou/mm3 (3.8-10.6)
[2024-04-28 05:41] LABS: INR 1.1 (0.9-1.3); Partial Thromboplastin Time 29.1 Seconds (22.0-36.0); Prothrombin Time 11.9 Seconds (9.0-12.2)
[2024-04-28 06:15] LABS: Alanine Aminotransferase 10 U/L (10-49); Albumin, Serum 3.2 gm/dL (3.4-4.8); Albumin/Globulin Ratio 1.1 (1.2-2.2); Alkaline Phosphatase 125 U/L (46-116); Anion Gap 11 (7-16); Aspartate Amino Transferase < 8 U/L (0-34); BUN/Creatinine Ratio 13 Ratio (12-20); Bilirubin,Total 0.3 mg/dL (0.3-1.2); Blood Urea Nitrogen 20 mg/dL (9-23); Calcium 8.8 mg/dL (8.3-10.6); Calcium (Corrected) 9.4 mg/dL (8.5-10.1); Carbon Dioxide 17.6 mMol/L (20.0-31.0); Chloride 110 mMol/L (98-107); Creatinine (Component) 1.5 mg/dL (0.6-1.3); Estimated Creatinine Clearance 46.7 mL/min (>60); Globulin 2.8 gm/dL (2.3-3.5); Glucose 118 mg/dL (74-106); Osmolality,Calculated 281 (275-295); Potassium 3.4 mMol/L (3.4-5.1); Sodium 139 mMol/L (136-145); eGFR 48 See Note
[2024-04-28] MEDS: PANTOPRAZOLE 40 MG TABLET PO (09:55)
[2024-04-28] MEDS: SENNA TABLET 1 TAB PO (09:55)
[2024-04-28] MEDS: TAMSULOSIN HCL 0.4 MG CAPSULE PO (09:56)
[2024-04-28] MEDS: FINASTERIDE 5 MG TABLET PO (09:56)
[2024-04-28] MEDS: HEPARIN SOD INJ 5000 UNIT/ML VIAL SC ×2 (10:01→21:06)
[2024-04-28] MEDS: ACETAMINOPHEN 325 MG TABLET 650 MG PO (10:37)
[2024-04-28] MEDS: INSULIN LISPRO (AdmeLOG) 1 UNIT/0.01 ML UNIT SC ×3 (11:51→21:21)
--- NOTE | 2024-04-28 15:16 | PC.SS ---
Rounding note: pending urology consult.
--- NOTE | 2024-04-28 15:22 | ESPR_ITS ---
<Statement entered by Gerardo Monique MD - 04/29/24 15:35> Senior Resident Attestation: I supervised/discussed management plan with internet sales consultant physician Dr. Rodriguez, and was involved in the care of this patient. I personally saw and examined the patient and discussed the assessment and plan with the entire medicine team, including my attending. I agree with the assessment and plan as documented. Patient was seen and examined at the bedside. No overnight events. He reports no complains, denies any back or abdominal pain. Pending urology evaluation. Patient's care was discussed with attending physician, Dr. Do. Gerardo Monique MD PGY-2. Documentation for date of: 04/28/24 Subjective Subjective Interval history: 04/27: Patient is an overnight admit. Patient is seen and examined at bedside. Patient states that he has been experiencing urinary incontinence with complete loss of bladder control with some dysuria, and he called his urologist Dr. Wilson with whom patient has an appointment in the next couple weeks stated the doctor told him that he will see him in clinic outpatient however patient could not handle the incontinence at home so he came to the ED. upon my examination patient was alert and oriented patient denied any pain in the abdomen or the chest. Patient also stated that he started having diarrhea since last night likely due to Kayexalate given in the ED. patient states that right now he is not in pain but sometimes he has pain in the left lower flank region likely from the urethral stone he is told to have. Patient also states that he has long history of nephrolithiasis which he often gets lithotripsy. Patient also recently had a hip replacement surgery approximately 3 months ago for which he has been using a wheelchair to get around as well as regular PT visits at home. Patient lives at home by himself. Patient has no other complaints. 04/28: No overnight events. Patient seen and examined at bed side this morning. Patient is urine output was less cloudy this morning patient is continued on IV antibiotics. Patient denies any abdominal pain or chest pain. Spoke to urologist Dr. Wilson, who stated he will see the patient tomorrow in the afternoon, currently there is no plans for anything for the patient other than IV antibiotics to be continued and to order KUB for tomorrow morning. Nurse notified of multiple pressure ulcers and will order wound care. patient has no other complaints Exam Vital Signs Temp Pulse Resp BP Pulse Ox O2 Del Method 97.0 F 89 18 125/85 H 99 Room Air 04/28/24 11:21 04/28/24 11:21 04/28/24 11:21 04/28/24 11:21 04/28/24 11:21 04/28/24 11:21 Narrative Exam GENERAL: A&Ox3 . Awake, Not in acute distress NEURO: no focal neurological deficits HEENT: Atraumatic, Normocephalic. mucous membranes moist. Eyes open, symmetrical, & clear HEART: Normal Heart Sounds LUNGS: Clear to auscultation with no wheezing or crackles. ABDOMEN: soft, non-distended, non-tender, no guarding or rebound tenderness SKIN: No Rash or ecchymoses, Pt. has a gonsales cathether with minimally cloudy urine output EXTREMITIES: No edema, tenderness, able to move all 4 extremities, pedal pulses palpated Objective Labs 04/28/24 04:01 04/28/24 04:01 Labs: Laboratory Results - last 24 hr 04/27/24 04/28/24 15:19 04:01 WBC 12.8 H RBC 3.02 L Hgb 8.9 L Hct 27.6 L MCV 91 MCH 29.5 MCHC 32.2 RDW Std Deviation 50.4 H Plt Count 252 D Neut % (Auto) 69 Lymph % (Auto) 20 [place] % (Auto) 8 Eos % (Auto) 1 Baso % (Auto) 1 Neut # (Auto) 8.8 H Lymph # (Auto) 2.5 [place] # (Auto) 1.1 H Eos # (Auto) 0.2 Baso # (Auto) 0.1 Immature Gran # (Auto) 0.22 H Absolute Nucleated RBC 0.00 Immature Gran % 2 H Nucleated RBC % 0 PT 11.9 INR 1.1 APTT 29.1 Sodium 139 Potassium 3.4 D Chloride 110 H Carbon Dioxide 17.6 L Anion Gap 11 BUN 20 Creatinine 1.5 H Estim Creat Clear Calc 46.7 L eGFR 48 L BUN/Creatinine Ratio 13 Glucose 118 H Calculated Osmolality 281 Calcium 8.8 Corrected Calcium 9.4 Total Bilirubin 0.3 AST < 8 ALT 10 Alkaline Phosphatase 125 H D Total Protein 6.0 Albumin 3.2 L D Globulin 2.8 Albumin/Globulin Ratio 1.1 L Free T4 1.02 Quality Measures Quality Measures none Advance care planning discussed with:: patient Assessment & Plan Assessment Current Active Medications: Generic Name Dose Route Start Last Admin Trade Name Brittany PRN Reason Stop Dose Admin Acetaminophen 650 mg 04/27/24 00:18 04/28/24 10:37 Acetaminophen 325 Mg Tablet PO 05/27/24 00:17 650 mg Q6H PRN Administration PAIN OR FEVER > 101 Dextrose 25 ml 04/27/24 00:32 Dextrose 50%-Water Inj 50 Ml Syringe IV 05/27/24 00:31 Q15MIN PRN BG 50-70 responsive npo pt Dextrose 50 ml 04/27/24 00:32 Dextrose 50%-Water Inj 50 Ml Syringe IV 05/27/24 00:31 Q15MIN PRN BG <50 OR BG <70 & pt unresponsive Finasteride 5 mg 04/27/24 09:00 04/28/24 09:56 Finasteride 5 Mg Tablet PO 05/27/24 08:59 5 mg QDAY EMELIA Administration Glucagon 1 mg 04/27/24 00:32 Glucagon Inj 1 Mg Vial IM Q15MIN PRN BG <70, and no IV access Heparin Sodium (Porcine) 5,000 unit 04/27/24 00:30 04/28/24 10:01 Heparin Sod Inj 5000 Unit/Ml Vial SC 05/11/24 00:29 5,000 unit Q12HR EMELIA Administration Piperacillin/Tazobactam/Dextrose 3.375 gm in 50 mls @ 12.5 mls/hr 04/27/24 06:00 04/28/24 13:37 Zosyn IV 05/04/24 05:59 12.5 mls/hr Q8HR EMELIA Administration Insulin Human Lispro 0 unit 04/27/24 07:30 04/28/24 11:51 Insulin Lispro (Admelog) 1 Unit/0.01 Ml Unit SC 05/27/24 07:29 2 unit ACHS EMELIA Administration Protocol Ondansetron HCl 4 mg 04/27/24 00:18 Ondansetron Inj 2 Mg/Ml Inj 2 Ml IV 05/27/24 00:17 Q6H PRN NAUSEA OR VOMITING Protocol Pantoprazole Sodium 40 mg 04/27/24 09:00 04/28/24 09:55 Pantoprazole 40 Mg Tablet PO 05/27/24 08:59 40 mg QDAY EMELIA Administration Sennosides 1 tab 04/27/24 09:00 04/28/24 09:55 Senna Tablet PO 05/27/24 08:59 1 tab QDAY EMELIA Administration Protocol Tamsulosin HCl 0.4 mg 04/27/24 09:00 04/28/24 09:56 Tamsulosin Hcl 0.4 Mg Capsule PO 05/27/24 08:59 0.4 mg QDAY EMELIA Administration Plan 74-year-old male with past medical history of hypertension, urinary incontinence, DM, multiple episodes of urinary tract infections, recurrent hydronephrosis status post lithotripsy and stent placement was admitted for acute encephalopathy secondary due to UTI as well as JINA, hydronephrosis, unilateral obstructive uropathy and acute pyelonephritis, severe emphysematous cystitis treatment and management. #obstructive uropathy #Pyuria in the setting #UTI #JINA versus JINA on CKD #left unilateral obstructive uropathy #left Hydronephrosis #Left pyelonephritis #Severe emphysematous cystitis -Patient Biba to emergency department due to mild confusion, patient stated that recently he was more somnolent, had low appetite, had 1 episode of nausea and vomiting. -Labs revealed leukocytosis, anemia, electrolyte disbalance, potassium of 5.5, creatinine of 1.9, BUN is 35, EGFR 36 -UA revealed turbid urine with WBC 4325, RBC 248, positive LE -Patient was complaining of dysuria and suprapubic tenderness -A CT abdomen/pelvis was performed, which revealed the following findings: -Left ureteral stent with persistent moderate hydronephrosis -A 7 mm calculus in the mid left ureter -Left pyelonephritis -Severe emphysematous cystitis Plan: -IVF -Zosyn started 04/26- -Follow urine culture/blood culture -Gonsales catheter- with cloudy output -Continue home finasteride and tamsulosin -Urology is on board, Dr. Rojas accepted the case and will be seeing the patient on Sunday 04/29 -KUB ordered for tomorrow a.m. #DM type II --blood glucose is 165 -HbA1c 6.4 on 04/27/24 Plan: -Hold home medication -Insulin sliding scale -Carb consistent diet #History of hypertension -Currently BP is under control -Monitor vital signs #Electrolyte disbalance #Hyperkalemia-resolved #Hyponatremia-resolved -Patient was given Kayexalate in ED -Patient received normal saline bolus currently is on maintenance -EKG without peaked T waves -Close monitor -Management as needed Other -TSH 0.37 today -Will order T3 on to a.m. labs Patient stated that he is taking fluconazole 200 mg daily for last 30 years, however is not sure why Patient also stated that he is not taking Eliquis Disposition:Medsurge for in patient management of UTI DVT prophylaxis: heparin GI prophylaxis: PPI Diet: carb consistent Lines: PIV CODE STATUS:Full code Assessment and plan discussed with my senior resident Dr. Monique & attending physician Dr. Ernestina Rodriguez (PGY-1)- Internal medicine resident Attending Provider Attestation/Addendum IOmayra, , attest that I was physically present for the [place] portions of the service and evaluated the patient with the resident and I reviewed and discussed the case with the resident and agree with the resident's findings and plans of care as documented above Patient seen eval this a.m. He states that he is feeling much improved. He states that his left flank pain has improved. He denies any suprapubic pain either. Will continue with current IV antibiotic management. Pending urine cultures that are positive for gram-negative rods currently. Will follow-up with urology recommendations. Will obtain KUB as per urology request. Case discussed with wound care nurse, patient found to have several pressure wounds and will likely need home health for wound care if he is to be discharged home.
--- NOTE | 2024-04-28 17:05 | PC.CM ---
Per notes patient is seen by Dr. Pringle. I asked manager social media Rosie to ask patient which doctor Yary he sees and does he have a preference for a home health agency.
[2024-04-29] VITALS (8 sets, daily range): BP systolic 99–129; BP diastolic 74–86; PULSE 16–95; RESP 16–99; TEMP 36.2–36.9; O2SAT 95–98
[2024-04-29] MEDS: PIPER/TAZO 3.375 GM 3.375 GM/50 ML BAG IV ×3 (05:04→22:08)
[2024-04-29 05:46] LABS: Basophils % (Auto) 0 % (0-2.5); Eosinophils # (Auto) 0.2 Thou/mm3 (0.0-0.5); Eosinophils % (Auto) 2 % (0-10); Hematocrit 27.4 % (41.0-53.0); Immature Granulocytes % (Auto) 2 % (0-0); Immature Granulocytes Auto 0.19 Thou/mm3 (0.00-0.00); Lymphocytes # (Auto) 2.5 Thou/mm3 (1.0-4.8); Lymphocytes % (Auto) 25 % (10-50); Mean Corpuscular HGB Conc 31.8 g/dl (31.0-37.0); Mean Corpuscular Hemoglobin 28.8 pg (25.0-35.0); Mean Corpuscular Volume 91 fL (80-100); Monocytes # (Auto) 0.8 Thou/mm3 (0.0-0.8); Monocytes % (Auto) 8 % (0-12); Neutrophils % (Auto) 62 % (37-80); Nucleated Red Blood Cell % 0 /100 WBC (0); Platelet Count 229 Thou/mm3 (140-440); RDW Standard Deviation 48.5 fL (35.1-43.9); Red Blood Count 3.02 Miln/mm3 (4.50-5.90); White Blood Count 9.8 Thou/mm3 (3.8-10.6)
[2024-04-29 05:52] LABS: Hemoglobin 8.7 g/dL (13.5-16.0)
[2024-04-29 06:48] LABS: Alanine Aminotransferase 11 U/L (10-49); Albumin, Serum 3.2 gm/dL (3.4-4.8); Albumin/Globulin Ratio 1.1 (1.2-2.2); Alkaline Phosphatase 117 U/L (46-116); Anion Gap 9 (7-16); Aspartate Amino Transferase 10 U/L (0-34); BUN/Creatinine Ratio 11 Ratio (12-20); Bilirubin,Total 0.2 mg/dL (0.3-1.2); Blood Urea Nitrogen 18 mg/dL (9-23); Calcium 8.8 mg/dL (8.3-10.6); Calcium (Corrected) 9.4 mg/dL (8.5-10.1); Carbon Dioxide 18.5 mMol/L (20.0-31.0); Chloride 109 mMol/L (98-107); Creatinine (Component) 1.6 mg/dL (0.6-1.3); Estimated Creatinine Clearance 43.8 mL/min (>60); Globulin 2.8 gm/dL (2.3-3.5); Glucose 138 mg/dL (74-106); Osmolality,Calculated 275 (275-295); Potassium 3.3 mMol/L (3.4-5.1); Sodium 136 mMol/L (136-145); eGFR 45 See Note
--- NOTE | 2024-04-29 07:00 | XR_ITS ---
Examination: Abdomen AP single view Technique: AP portable supine abdomen, single view Exam date and time: April 29, 2024 0701 hours INDICATIONS: Abdominal pain and distention today, history left ureteral stent CT abdomen and pelvis April 26, 2024 emphysematous cystitis FINDINGS: Left ureteral stent satisfactory position Vascular iliac stents Ventricular peritoneal shunt tube Nonobstructive bowel gas pattern Air present in the left renal collecting system and left ureter Clear cut ureteral calculi not depicted Severe osteopenia IMPRESSION: Left ureteral stent satisfactory position
[2024-04-29] MEDS: INSULIN LISPRO (AdmeLOG) 1 UNIT/0.01 ML UNIT SC ×4 (07:21→22:07)
[2024-04-29] MEDS: HEPARIN SOD INJ 5000 UNIT/ML VIAL SC ×2 (09:32→22:08)
[2024-04-29] MEDS: PANTOPRAZOLE 40 MG TABLET PO (09:32)
[2024-04-29] MEDS: SENNA TABLET 1 TAB PO (09:33)
[2024-04-29] MEDS: FINASTERIDE 5 MG TABLET PO (09:33)
[2024-04-29] MEDS: TAMSULOSIN HCL 0.4 MG CAPSULE PO (09:33)
--- NOTE | 2024-04-29 10:56 | PC.NURSE ---
Pt. does not have the list of medication with him and is not sure for the dosage of some of the meds. He is asked if he can have some one bring the list . Per pt. he will send his friend to his house late this afternoon to bring the medications is currently taking.
[2024-04-29] MEDS: ACETAMINOPHEN 325 MG TABLET 650 MG PO (12:13)
--- NOTE | 2024-04-29 14:12 | PC.NURSE ---
DR. Loza call to start pt. on Bactrim DS BID due to pt. positive or Ecoli in urine culture
--- NOTE | 2024-04-29 14:50 | PC.SS ---
Addendum entered by GILMAR Quan 04/29/24 16:06: Met with patient he informs he follow Dr. Multani at doctor Pringle's office. Unknown Nerissa's last name per patient. Patient informs he does not have a preferred home health agency. Original Note: Rounding update: pending urology. Patient will possibly need IV abx for seven days. Informed team of home health order for IV abx.
--- NOTE | 2024-04-29 17:49 | PD.RESPRO ---
Documentation for date of: 04/29/24 Subjective Subjective Interval history: 04/27: Patient is an overnight admit. Patient is seen and examined at bedside. Patient states that he has been experiencing urinary incontinence with complete loss of bladder control with some dysuria, and he called his urologist Dr. Wilson with whom patient has an appointment in the next couple weeks stated the doctor told him that he will see him in clinic outpatient however patient could not handle the incontinence at home so he came to the ED. upon my examination patient was alert and oriented patient denied any pain in the abdomen or the chest. Patient also stated that he started having diarrhea since last night likely due to Kayexalate given in the ED. patient states that right now he is not in pain but sometimes he has pain in the left lower flank region likely from the urethral stone he is told to have. Patient also states that he has long history of nephrolithiasis which he often gets lithotripsy. Patient also recently had a hip replacement surgery approximately 3 months ago for which he has been using a wheelchair to get around as well as regular PT visits at home. Patient lives at home by himself. Patient has no other complaints. 04/28: No overnight events. Patient seen and examined at bed side this morning. Patient is urine output was less cloudy this morning patient is continued on IV antibiotics. Patient denies any abdominal pain or chest pain. Spoke to urologist Dr. Wilson, who stated he will see the patient tomorrow in the afternoon, currently there is no plans for anything for the patient other than IV antibiotics to be continued and to order KUB for tomorrow morning. Nurse notified of multiple pressure ulcers and will order wound care. patient has no other complaints 04/29: No overnight events. Patient is seen and examined at bedside this morning. Patient was very tired and sleepy and was having minimal conversation because patient states that he had a restless night and was unable to sleep. Patient continues to have minimally cloudy urine output via Gonsales cath. Patient denies any dysuria, nausea vomiting or abdominal pain. Later in the afternoon patient was seen again. Patient stated that Dr. Rojas saw him this morning and he wanted him to continue to have IV antibiotics and once the urine infection has subsided then he can have discussion regarding if and when the procedure will happen. Patient has no other complaints. Exam Vital Signs Temp Pulse Resp BP Pulse Ox O2 Del Method 97.1 F 75 17 124/82 98 Room Air 04/29/24 16:00 04/29/24 16:00 04/29/24 16:00 04/29/24 16:00 04/29/24 16:00 04/29/24 16:00 Narrative Exam GENERAL: A&Ox3 . Awake, Not in acute distress NEURO: no focal neurological deficits HEENT: Atraumatic, Normocephalic. mucous membranes moist. Eyes open, symmetrical, & clear HEART: Normal Heart Sounds LUNGS: Clear to auscultation with no wheezing or crackles. ABDOMEN: soft, non-distended, non-tender, no guarding or rebound tenderness SKIN: No Rash or ecchymoses, Pt. has a gonsales cathether with minimally cloudy urine output EXTREMITIES: No edema, tenderness, able to move all 4 extremities, pedal pulses palpated Objective Labs 04/30/24 04:20 04/30/24 08:20 Labs: Laboratory Results - last 24 hr 04/29/24 04:47 WBC 9.8 RBC 3.02 L Hgb 8.7 L Hct 27.4 L MCV 91 MCH 28.8 MCHC 31.8 RDW Std Deviation 48.5 H Plt Count 229 Neut % (Auto) 62 Lymph % (Auto) 25 [place] % (Auto) 8 Eos % (Auto) 2 Baso % (Auto) 0 Neut # (Auto) 6.0 Lymph # (Auto) 2.5 [place] # (Auto) 0.8 Eos # (Auto) 0.2 Baso # (Auto) 0.0 Immature Gran # (Auto) 0.19 H Absolute Nucleated RBC 0.00 Immature Gran % 2 H Nucleated RBC % 0 Sodium 136 Potassium 3.3 L Chloride 109 H Carbon Dioxide 18.5 L Anion Gap 9 BUN 18 Creatinine 1.6 H Estim Creat Clear Calc 43.8 L eGFR 45 L BUN/Creatinine Ratio 11 L Glucose 138 H Calculated Osmolality 275 Calcium 8.8 Corrected Calcium 9.4 Total Bilirubin 0.2 L AST 10 ALT 11 Alkaline Phosphatase 117 H Total Protein 6.0 Albumin 3.2 L Globulin 2.8 Albumin/Globulin Ratio 1.1 L Quality Measures Quality Measures none Advance care planning discussed with:: patient Assessment & Plan Assessment Current Active Medications: Generic Name Dose Route Start Last Admin Trade Name Freq PRN Reason Stop Dose Admin Acetaminophen 650 mg 04/27/24 00:18 04/29/24 12:13 Acetaminophen 325 Mg Tablet PO 05/27/24 00:17 650 mg Q6H PRN Administration PAIN OR FEVER > 101 Dextrose 25 ml 04/27/24 00:32 Dextrose 50%-Water Inj 50 Ml Syringe IV 05/27/24 00:31 Q15MIN PRN BG 50-70 responsive npo pt Dextrose 50 ml 04/27/24 00:32 Dextrose 50%-Water Inj 50 Ml Syringe IV 05/27/24 00:31 Q15MIN PRN BG <50 OR BG <70 & pt unresponsive Finasteride 5 mg 04/27/24 09:00 04/29/24 09:33 Finasteride 5 Mg Tablet PO 05/27/24 08:59 5 mg QDAY EMELIA Administration Glucagon 1 mg 04/27/24 00:32 Glucagon Inj 1 Mg Vial IM Q15MIN PRN BG <70, and no IV access Heparin Sodium (Porcine) 5,000 unit 04/27/24 00:30 04/29/24 09:32 Heparin Sod Inj 5000 Unit/Ml Vial SC 05/11/24 00:29 5,000 unit Q12HR EMELIA Administration Piperacillin/Tazobactam/Dextrose 3.375 gm in 50 mls @ 12.5 mls/hr 04/27/24 06:00 04/29/24 13:05 Zosyn IV 05/04/24 05:59 12.5 mls/hr Q8HR EMELIA Administration Insulin Human Lispro 0 unit 04/27/24 07:30 04/29/24 16:40 Insulin Lispro (Admelog) 1 Unit/0.01 Ml Unit SC 05/27/24 07:29 1 unit ACHS EMELIA Administration Protocol Ondansetron HCl 4 mg 04/27/24 00:18 Ondansetron Inj 2 Mg/Ml Inj 2 Ml IV 05/27/24 00:17 Q6H PRN NAUSEA OR VOMITING Protocol Pantoprazole Sodium 40 mg 04/27/24 09:00 04/29/24 09:32 Pantoprazole 40 Mg Tablet PO 05/27/24 08:59 40 mg QDAY EMELIA Administration Sennosides 1 tab 04/27/24 09:00 04/29/24 09:33 Senna Tablet PO 05/27/24 08:59 1 tab QDAY EMELIA Administration Protocol Tamsulosin HCl 0.4 mg 04/27/24 09:00 04/29/24 09:33 Tamsulosin Hcl 0.4 Mg Capsule PO 05/27/24 08:59 0.4 mg QDAY EMELIA Administration Trimethoprim/Sulfamethoxazole 1 tab 04/29/24 21:00 Trimethoprim/Sulfa 160/800 Ds Tablet PO 05/06/24 20:59 BID EMELIA Plan 74-year-old male with past medical history of hypertension, urinary incontinence, DM, multiple episodes of urinary tract infections, recurrent hydronephrosis status post lithotripsy and stent placement was admitted for acute encephalopathy secondary due to UTI as well as JINA, hydronephrosis, unilateral obstructive uropathy and acute pyelonephritis, severe emphysematous cystitis treatment and management. #obstructive uropathy #Pyuria in the setting #UTI #JINA versus JINA on CKD #left unilateral obstructive uropathy #left Hydronephrosis #Left pyelonephritis #Severe emphysematous cystitis -Patient Biba to emergency department due to mild confusion, patient stated that recently he was more somnolent, had low appetite, had 1 episode of nausea and vomiting. -Labs revealed leukocytosis, anemia, electrolyte disbalance, potassium of 5.5, creatinine of 1.9, BUN is 35, EGFR 36 -UA revealed turbid urine with WBC 4325, RBC 248, positive LE -Patient was complaining of dysuria and suprapubic tenderness -A CT abdomen/pelvis was performed, which revealed the following findings: -Left ureteral stent with persistent moderate hydronephrosis -A 7 mm calculus in the mid left ureter -Left pyelonephritis -Severe emphysematous cystitis Plan: -IVF -Zosyn started 04/26- -Follow urine culture/blood culture -Gonsales catheter- with cloudy output -Continue home finasteride and tamsulosin -Urology is on board, Dr. Rojas accepted the case and will be seeing the patient on Sunday 04/29 -KUB findings-air present in the left renal collecting system and left ureter, severe osteopenia, nonobstructing bowel gas pattern #DM type II --blood glucose is 138 -HbA1c 6.4 on 04/27/24 Plan: -Hold home medication -Insulin sliding scale -Carb consistent diet #History of hypertension -Currently BP is under control -Monitor vital signs #Electrolyte disbalance #Hyperkalemia-resolved #Hyponatremia-resolved -Patient was given Kayexalate in ED -Patient received normal saline bolus currently is on maintenance -EKG without peaked T waves -Close monitor -Management as needed Other -TSH 0.37 today -Free T4 ordered for a.m. labs Patient stated that he is taking fluconazole 200 mg daily for last 30 years, however is not sure why Patient also stated that he is not taking Eliquis Disposition:Medsurge for in patient management of UTI DVT prophylaxis: heparin GI prophylaxis: PPI Diet: carb consistent Lines: PIV CODE STATUS:Full code Assessment and plan discussed with my senior resident Dr. Terrell & attending physician Dr. Ernestina Rodriguez (PGY-1)- Internal medicine resident I discussed with and supervised the international marketing intern physician who took care of this patient. I personally saw and examined the patient and discussed the assessment and plan with the entire medicine team, including my attending Dr. Ernestina WHITMAN. I agree with the assessment and plan as documented above. Patient interviewed and examined at bedside this a.m. No acute overnight events were reported. Patient reports much improvement of his symptoms. Patient appears to be clinically doing better. Patient was seen by urology service this a.m. who recommended to continue IV antibiotics and to obtain a KUB. Urine culture speciated GNR pending final culture on sensitivity report. Will continue to follow-up and escalate and/or de-escalate dependent on results. Praneeth Terrell M.D. Internal Medicine PGY-3 Attending Provider Attestation/Addendum I, Omayra Do, , attest that I was physically present for the [place] portions of the service and evaluated the patient with the resident and I reviewed and discussed the case with the resident and agree with the resident's findings and plans of care as documented above Patient seen and eval this a.m. Patient sates he is feeling well. Due to multiple wounds, suggested that patient be discharged to SNF. However, patient is prefers to go home with home health instead. Patient states that he was seen by urology this AM who recommends continuation of IV abx at this time. Will f/u with official recommendations by urology as well as final cultures and sensitivities. Patient responding well to IV zosyn otherwise. Patient denies any flank pain, chest pain or shortness of breath.
[2024-04-29] MEDS: TRIMETHOPRIM/SULFA 160/800 DS TABLET 1 TAB PO (22:08)
[2024-04-30] VITALS: BP 122/76; PULSE 74; RESP 18; TEMP 36.8; O2SAT 98
[2024-04-30] MEDS: ACETAMINOPHEN 325 MG TABLET 650 MG PO (00:10)
--- NOTE | 2024-04-30 00:50 | UCCONSULT_ITS ---
RE: JANE OWENS : 1950 DATE OF CONSULTATION: 04/29/2024 CHIEF COMPLAINT: 1. Benign prostatic hypertrophy with urinary obstruction and lower urinary tract symptoms. 2. Urinary retention, status post placement of Smith catheter. 3. 7 mm stone, mid left ureter with moderate hydronephrosis, status post ESWL of the stone. 4. Severe emphysematous cystitis. HISTORY OF PRESENT ILLNESS: This is a 74-year-old gentleman. This patient has established diagnoses of: 1. Hypertension. 2. Diabetes mellitus. 3. Hip fractures, status post open reduction and fixation. This patient has above problems. This patient is patient of my colleague, Dr. Rojas. He had a stent placed and ESWL of the mid 7 mm stone, left ureter. The patient came to the emergency room. The diagnosis in the emergency room were 1. Acute encephalopathy in the setting of UTI and obstructive uropathy. 2. Urinary tract infection. 3. Acute kidney injury. 4. Moderate left hydronephrosis. 5. Left pyelonephritis. 6. Severe emphysematous cystitis. He is being treated with antibiotics. His serum creatinine and WBCs are improved. His WBC is 9.8, BUN is 18, creatinine is 1.5, GFR 45. The patient denies at this time any prostatic surgery before. When he came to the office, he has altered mental status and dysuria of 1 week's duration, which was getting slowly worse. At the time of admission, his WBC was 8.4, hemoglobin 11.0. His serum potassium 5.5 and serum creatinines of 1.9, BUN is 35, GFR 36. The patient has improved. Past medical history, family history, review of systems, personal history, please refer to patient's history form dated, 04/27/2024, it is in HPI, in EMR. PHYSICAL EXAMINATION: VITAL SIGNS: His vital signs are stable. They are in HPI, in EMR. Temperature is 98.1, pulse 93, respirations 17, blood pressure 103/88 in the emergency room. GENERAL: Condition is satisfactory. The patient is not in acute distress. HEENT: Normocephalic, atraumatic. Eyes: No anemia or jaundice. NECK: Supple. Trachea is central. Thyroid is not enlarged. IMPRESSION: 1. Benign prostatic hypertrophy with urinary obstruction and lower urinary tract symptoms with the urinary retention. 2. Acute kidney injury as a result of urinary retention. 3. Stone, 7 mm, mid ureter, left side. Dr. Rojas called me to discuss the case with me. RECOMMENDATION: At this time is 1. Continue with catheter drainage. 2. Give him a trial of voiding. 3. Start on tamsulosin 0.4 mg p.o. daily, finasteride 5 mg p.o. daily. The patient recently had surgery on his hip. He also had a total knee replacement in the past. I have given him appointment to see me in Urology office when he is in a stable position and he has finished his rehabilitation for his hip replacement and he is in a position to be positioned in a dorsal lithotomy position. Myself and Dr. Rojas do a cystoscopy, retrograde ureteroscopy, laser stone fragmentation. I explained the procedure and complication to the patient and he will be followed first in my office and I will obtain a Cardiology clearance. DT: 14:03:41 TT: 16:45:00 Ref: [id number] - TID: [id number]
[2024-04-30 04:00] VITALS: BP 116/82; PULSE 69; RESP 17; TEMP 37; O2SAT 98
[2024-04-30] MEDS: PIPER/TAZO 3.375 GM 3.375 GM/50 ML BAG IV (05:00)
[2024-04-30 06:15] LABS: Free T4 (Free Thyroxine) 0.99 ng/dL (0.89-1.76)
[2024-04-30 07:47] LABS: Basophils # (Auto) 0.1 Thou/mm3 (0.0-0.2); Basophils % (Auto) 1 % (0-2.5); Eosinophils # (Auto) 0.3 Thou/mm3 (0.0-0.5); Eosinophils % (Auto) 3 % (0-10); Hematocrit 27.8 % (41.0-53.0); Hemoglobin 9.5 g/dL (13.5-16.0); Immature Granulocytes % (Auto) 2 % (0-0); Immature Granulocytes Auto 0.25 Thou/mm3 (0.00-0.00); Lymphocytes # (Auto) 2.8 Thou/mm3 (1.0-4.8); Lymphocytes % (Auto) 26 % (10-50); Mean Corpuscular HGB Conc 34.2 g/dl (31.0-37.0); Mean Corpuscular Volume 88 fL (80-100); Monocytes # (Auto) 0.9 Thou/mm3 (0.0-0.8); Monocytes % (Auto) 8 % (0-12); Neutrophils # (Auto) 6.6 Thou/mm3 (1.8-7.7); Neutrophils % (Auto) 61 % (37-80); Nucleated Red Blood Cell % 0 /100 WBC (0); Platelet Count 193 Thou/mm3 (140-440); RDW Standard Deviation 46.3 fL (35.1-43.9); Red Blood Count 3.17 Miln/mm3 (4.50-5.90); White Blood Count 10.8 Thou/mm3 (3.8-10.6)
[2024-04-30 08:00] VITALS: BP 121/73; PULSE 79; RESP 18; TEMP 36.8; O2SAT 92
[2024-04-30] MEDS: INSULIN LISPRO (AdmeLOG) 1 UNIT/0.01 ML UNIT SC ×4 (08:30→20:33)
[2024-04-30] MEDS: HEPARIN SOD INJ 5000 UNIT/ML VIAL SC ×2 (08:32→20:34)
[2024-04-30] MEDS: TAMSULOSIN HCL 0.4 MG CAPSULE PO (08:32)
[2024-04-30] MEDS: FINASTERIDE 5 MG TABLET PO (08:32)
[2024-04-30] MEDS: PANTOPRAZOLE 40 MG TABLET PO (08:32)
[2024-04-30] MEDS: SENNA TABLET 1 TAB PO (08:32)
[2024-04-30] MEDS: TRIMETHOPRIM/SULFA 160/800 DS TABLET 1 TAB PO ×2 (08:32→20:34)
[2024-04-30 08:59] LABS: Alanine Aminotransferase 16 U/L (10-49); Albumin, Serum 3.4 gm/dL (3.4-4.8); Albumin/Globulin Ratio 1.1 (1.2-2.2); Alkaline Phosphatase 120 U/L (46-116); Anion Gap 8 (7-16); Aspartate Amino Transferase 14 U/L (0-34); BUN/Creatinine Ratio 12 Ratio (12-20); Bilirubin,Total 0.3 mg/dL (0.3-1.2); Blood Urea Nitrogen 18 mg/dL (9-23); Calcium 8.9 mg/dL (8.3-10.6); Calcium (Corrected) 9.4 mg/dL (8.5-10.1); Carbon Dioxide 20.5 mMol/L (20.0-31.0); Chloride 107 mMol/L (98-107); Creatinine (Component) 1.5 mg/dL (0.6-1.3); Estimated Creatinine Clearance 46.7 mL/min (>60); Globulin 3.1 gm/dL (2.3-3.5); Glucose 133 mg/dL (74-106); Osmolality,Calculated 274 (275-295); Potassium 3.6 mMol/L (3.4-5.1); Sodium 135 mMol/L (136-145); Total Protein 6.5 gm/dL (5.7-8.2); eGFR 48 See Note
[2024-04-30] MEDS: MEROPENEM INJ 1,000 MG in SODIUM CHLORIDE 0.9% (P) 50 ML 100 MG IV ×2 (11:14→20:34)
[2024-04-30 11:59] VITALS: BMI 24.3
[2024-04-30 12:00] VITALS: BP 106/79; PULSE 112; RESP 19; TEMP 36.8; O2SAT 93
--- NOTE | 2024-04-30 15:34 | PC.SS ---
Rounding note: patient to need IV abx for seven days. If unable to get home health, possibility patient may remain in house for the IV abx course.
[2024-04-30 16:00] VITALS: BP 115/83; PULSE 115; RESP 18; TEMP 36.7; O2SAT 95
--- NOTE | 2024-04-30 18:23 | PD.RESPRO ---
Documentation for date of: 04/30/24 Subjective Subjective Interval history: 04/27: Patient is an overnight admit. Patient is seen and examined at bedside. Patient states that he has been experiencing urinary incontinence with complete loss of bladder control with some dysuria, and he called his urologist Dr. Wilson with whom patient has an appointment in the next couple weeks stated the doctor told him that he will see him in clinic outpatient however patient could not handle the incontinence at home so he came to the ED. upon my examination patient was alert and oriented patient denied any pain in the abdomen or the chest. Patient also stated that he started having diarrhea since last night likely due to Kayexalate given in the ED. patient states that right now he is not in pain but sometimes he has pain in the left lower flank region likely from the urethral stone he is told to have. Patient also states that he has long history of nephrolithiasis which he often gets lithotripsy. Patient also recently had a hip replacement surgery approximately 3 months ago for which he has been using a wheelchair to get around as well as regular PT visits at home. Patient lives at home by himself. Patient has no other complaints. 04/28: No overnight events. Patient seen and examined at bed side this morning. Patient is urine output was less cloudy this morning patient is continued on IV antibiotics. Patient denies any abdominal pain or chest pain. Spoke to urologist Dr. Wilson, who stated he will see the patient tomorrow in the afternoon, currently there is no plans for anything for the patient other than IV antibiotics to be continued and to order KUB for tomorrow morning. Nurse notified of multiple pressure ulcers and will order wound care. patient has no other complaints 04/29: No overnight events. Patient is seen and examined at bedside this morning. Patient was very tired and sleepy and was having minimal conversation because patient states that he had a restless night and was unable to sleep. Patient continues to have minimally cloudy urine output via Gonsales cath. Patient denies any dysuria, nausea vomiting or abdominal pain. Later in the afternoon patient was seen again. Patient stated that Dr. Rojas saw him this morning and he wanted him to continue to have IV antibiotics and once the urine infection has subsided then he can have discussion regarding if and when the procedure will happen. Patient has no other complaints. 04/30: Exam Vital Signs Temp Pulse Resp BP Pulse Ox O2 Del Method 98.0 F 115 H 18 115/83 95 Room Air 04/30/24 16:00 04/30/24 16:00 04/30/24 16:00 04/30/24 16:00 04/30/24 16:00 04/30/24 16:00 Narrative Exam GENERAL: A&Ox3 . Awake, Not in acute distress NEURO: no focal neurological deficits HEENT: Atraumatic, Normocephalic. mucous membranes moist. Eyes open, symmetrical, & clear HEART: Normal Heart Sounds LUNGS: Clear to auscultation with no wheezing or crackles. ABDOMEN: soft, non-distended, non-tender, no guarding or rebound tenderness SKIN: No Rash or ecchymoses, Pt. has a gonsales cathether with urine output EXTREMITIES: No edema, tenderness, able to move all 4 extremities, pedal pulses palpated Objective Labs 05/01/24 05:10 05/01/24 05:10 Labs: Laboratory Results - last 24 hr 04/30/24 04/30/24 04:20 08:20 WBC 10.8 H RBC 3.17 L Hgb 9.5 L Hct 27.8 L MCV 88 MCH 30.0 MCHC 34.2 RDW Std Deviation 46.3 H Plt Count 193 D Neut % (Auto) 61 Lymph % (Auto) 26 [place] % (Auto) 8 Eos % (Auto) 3 Baso % (Auto) 1 Neut # (Auto) 6.6 Lymph # (Auto) 2.8 [place] # (Auto) 0.9 H Eos # (Auto) 0.3 Baso # (Auto) 0.1 Immature Gran # (Auto) 0.25 H Absolute Nucleated RBC 0.00 Immature Gran % 2 H Nucleated RBC % 0 Sodium Cancelled 135 L Potassium Cancelled 3.6 Chloride Cancelled 107 Carbon Dioxide Cancelled 20.5 Anion Gap Cancelled 8 BUN Cancelled 18 Creatinine Cancelled 1.5 H Estim Creat Clear Calc Cancelled 46.7 L eGFR Cancelled 48 L BUN/Creatinine Ratio Cancelled 12 Glucose Cancelled 133 H Calculated Osmolality Cancelled 274 L Calcium Cancelled 8.9 Corrected Calcium Cancelled 9.4 Total Bilirubin Cancelled 0.3 AST Cancelled 14 ALT Cancelled 16 Alkaline Phosphatase Cancelled 120 H Total Protein Cancelled 6.5 Albumin Cancelled 3.4 Globulin Cancelled 3.1 Albumin/Globulin Ratio Cancelled 1.1 L Free T4 0.99 Quality Measures Quality Measures none Advance care planning discussed with:: patient Assessment & Plan Assessment Current Active Medications: Generic Name Dose Route Start Last Admin Trade Name Freq PRN Reason Stop Dose Admin Acetaminophen 650 mg 04/27/24 00:18 04/30/24 00:10 Acetaminophen 325 Mg Tablet PO 05/27/24 00:17 650 mg Q6H PRN Administration PAIN OR FEVER > 101 Dextrose 25 ml 04/27/24 00:32 Dextrose 50%-Water Inj 50 Ml Syringe IV 05/27/24 00:31 Q15MIN PRN BG 50-70 responsive npo pt Dextrose 50 ml 04/27/24 00:32 Dextrose 50%-Water Inj 50 Ml Syringe IV 05/27/24 00:31 Q15MIN PRN BG <50 OR BG <70 & pt unresponsive Finasteride 5 mg 04/27/24 09:00 04/30/24 08:32 Finasteride 5 Mg Tablet PO 05/27/24 08:59 5 mg QDAY EMELIA Administration Glucagon 1 mg 04/27/24 00:32 Glucagon Inj 1 Mg Vial IM Q15MIN PRN BG <70, and no IV access Heparin Sodium (Porcine) 5,000 unit 04/27/24 00:30 04/30/24 08:32 Heparin Sod Inj 5000 Unit/Ml Vial SC 05/11/24 00:29 5,000 unit Q12HR EMELIA Administration Meropenem 1,000 mg/ Sodium 50 mls @ 100 mls/hr 04/30/24 10:30 04/30/24 11:14 Chloride IV 05/07/24 10:29 100 mls/hr Q12HR EMELIA Administration Insulin Human Lispro 0 unit 04/27/24 07:30 04/30/24 16:57 Insulin Lispro (Admelog) 1 Unit/0.01 Ml Unit SC 05/27/24 07:29 2 unit ACHS EMELIA Administration Protocol Ondansetron HCl 4 mg 04/27/24 00:18 Ondansetron Inj 2 Mg/Ml Inj 2 Ml IV 05/27/24 00:17 Q6H PRN NAUSEA OR VOMITING Protocol Pantoprazole Sodium 40 mg 04/27/24 09:00 04/30/24 08:32 Pantoprazole 40 Mg Tablet PO 05/27/24 08:59 40 mg QDAY EMELIA Administration Sennosides 1 tab 04/27/24 09:00 04/30/24 08:32 Senna Tablet PO 05/27/24 08:59 1 tab QDAY EMELIA Administration Protocol Tamsulosin HCl 0.4 mg 04/27/24 09:00 04/30/24 08:32 Tamsulosin Hcl 0.4 Mg Capsule PO 05/27/24 08:59 0.4 mg QDAY EMELIA Administration Trimethoprim/Sulfamethoxazole 1 tab 04/29/24 21:00 04/30/24 08:32 Trimethoprim/Sulfa 160/800 Ds Tablet PO 05/06/24 20:59 1 tab BID EMELIA Administration Plan Mr. Hernandez is a 74-year-old male with past medical history of hypertension, urinary incontinence, DM, multiple episodes of urinary tract infections, recurrent hydronephrosis status post lithotripsy and stent placement was admitted for acute encephalopathy secondary due to UTI as well as JINA, hydronephrosis, unilateral obstructive uropathy and acute pyelonephritis, severe emphysematous cystitis treatment and management. #obstructive uropathy #Pyuria in the setting #UTI #JINA versus JINA on CKD #left unilateral obstructive uropathy #left Hydronephrosis #Left pyelonephritis #Severe emphysematous cystitis -Patient Biba to emergency department due to mild confusion, patient stated that recently he was more somnolent, had low appetite, had 1 episode of nausea and vomiting. -Labs revealed leukocytosis, anemia, electrolyte disbalance, potassium of 5.5, creatinine of 1.9, BUN is 35, EGFR 36 -UA revealed turbid urine with WBC 4325, RBC 248, positive LE -Patient was complaining of dysuria and suprapubic tenderness -A CT abdomen/pelvis was performed, which revealed the following findings: -Left ureteral stent with persistent moderate hydronephrosis -A 7 mm calculus in the mid left ureter -Left pyelonephritis -Severe emphysematous cystitis Plan: -IVF -Switched Zosyn to meropenem 100 Mg every 12 hours 04/30/2024? -Trimethoprim/sulfa started by Dr. Ambrocio on 04/29/24- -Follow urine culture-positive for E. coli with multidrug resistance -blood culture-no growth after 24 hours -Gonsales catheter- with cloudy output -Continue home finasteride and tamsulosin -Urology is on board, Dr. Rojas accepted the case and is following the patient -Per Dr. Rojas note patient will be seeing him outpatient for lithotripsy after patient is stable to and completes rehab status post hip replacement surgery -KUB findings-air present in the left renal collecting system and left ureter, severe osteopenia, nonobstructing bowel gas pattern #DM type II --blood glucose is 133 -HbA1c 6.4 on 04/27/24 Plan: -Hold home medication -Insulin sliding scale -Carb consistent diet #History of hypertension -Currently BP is under control -Monitor vital signs #Electrolyte disbalance #Hyperkalemia-resolved #Hyponatremia-resolved -Patient was given Kayexalate in ED -Patient received normal saline bolus currently is on maintenance -EKG without peaked T waves -Close monitor -Management as needed Other -TSH 0.37 -Free T4 0.99 Patient stated that he is taking fluconazole 200 mg daily for last 30 years, however is not sure why Patient also stated that he is not taking Eliquis Disposition:Medsurge for in patient management of UTI with IV antibiotics DVT prophylaxis: heparin GI prophylaxis: PPI Diet: carb consistent Lines: PIV CODE STATUS:Full code Assessment and plan discussed with my attending physician Dr. Laura Rodriguez (PGY-1)- Internal medicine resident Attending Provider Attestation/Addendum I discussed with and supervised the resident physician who took care of this patient. I agree with the assessment and plan as above. Patient will start on meropenem for ESBL E. coli UTI. He is afebrile. He has no hematuria no flank pain. He has a Gonsales catheter.
[2024-04-30 20:00] VITALS: BP 124/85; PULSE 100; RESP 18; TEMP 36.9; O2SAT 95
[2024-05-01] VITALS (8 sets, daily range): BP systolic 102–133; BP diastolic 63–85; PULSE 70–96; RESP 17–98; TEMP 36.4–37; O2SAT 96–98; BMI 14.0
[2024-05-01 05:52] LABS: Basophils # (Auto) 0.1 Thou/mm3 (0.0-0.2); Basophils % (Auto) 1 % (0-2.5); Eosinophils # (Auto) 0.2 Thou/mm3 (0.0-0.5); Eosinophils % (Auto) 2 % (0-10); Hemoglobin 9.7 g/dL (13.5-16.0); Immature Granulocytes % (Auto) 3 % (0-0); Immature Granulocytes Auto 0.29 Thou/mm3 (0.00-0.00); Lymphocytes # (Auto) 2.7 Thou/mm3 (1.0-4.8); Lymphocytes % (Auto) 26 % (10-50); Mean Corpuscular HGB Conc 33.4 g/dl (31.0-37.0); Mean Corpuscular Hemoglobin 29.3 pg (25.0-35.0); Mean Corpuscular Volume 88 fL (80-100); Monocytes # (Auto) 0.8 Thou/mm3 (0.0-0.8); Monocytes % (Auto) 8 % (0-12); Neutrophils # (Auto) 6.4 Thou/mm3 (1.8-7.7); Neutrophils % (Auto) 61 % (37-80); Nucleated Red Blood Cell % 0 /100 WBC (0); Platelet Count 247 Thou/mm3 (140-440); Red Blood Count 3.31 Miln/mm3 (4.50-5.90); White Blood Count 10.6 Thou/mm3 (3.8-10.6)
[2024-05-01 06:09] LABS: Alanine Aminotransferase 21 U/L (10-49); Albumin, Serum 3.4 gm/dL (3.4-4.8); Albumin/Globulin Ratio 1.2 (1.2-2.2); Alkaline Phosphatase 110 U/L (46-116); Anion Gap 6 (7-16); Aspartate Amino Transferase 20 U/L (0-34); BUN/Creatinine Ratio 12 Ratio (12-20); Bilirubin,Total 0.2 mg/dL (0.3-1.2); Blood Urea Nitrogen 18 mg/dL (9-23); Calcium 8.8 mg/dL (8.3-10.6); Calcium (Corrected) 9.3 mg/dL (8.5-10.1); Carbon Dioxide 21.3 mMol/L (20.0-31.0); Chloride 108 mMol/L (98-107); Creatinine (Component) 1.5 mg/dL (0.6-1.3); Estimated Creatinine Clearance 46.7 mL/min (>60); Globulin 2.9 gm/dL (2.3-3.5); Glucose 147 mg/dL (74-106); Osmolality,Calculated 275 (275-295); Sodium 135 mMol/L (136-145); Total Protein 6.3 gm/dL (5.7-8.2); eGFR 48 See Note
[2024-05-01] MEDS: INSULIN LISPRO (AdmeLOG) 1 UNIT/0.01 ML UNIT SC ×4 (07:34→20:58)
[2024-05-01] MEDS: TRIMETHOPRIM/SULFA 160/800 DS TABLET 1 TAB PO ×2 (08:18→20:25)
[2024-05-01] MEDS: SENNA TABLET 1 TAB PO (08:18)
[2024-05-01] MEDS: TAMSULOSIN HCL 0.4 MG CAPSULE PO (08:19)
[2024-05-01] MEDS: FINASTERIDE 5 MG TABLET PO (08:19)
[2024-05-01] MEDS: PANTOPRAZOLE 40 MG TABLET PO (08:19)
[2024-05-01] MEDS: HEPARIN SOD INJ 5000 UNIT/ML VIAL SC ×2 (08:19→20:29)
[2024-05-01] MEDS: MEROPENEM INJ 1,000 MG in SODIUM CHLORIDE 0.9% (P) 50 ML 100 MG IV ×2 (08:20→20:25)
--- NOTE | 2024-05-01 15:55 | ESPR_ITS ---
Documentation for date of: 05/01/24 Subjective Subjective Interval history: 05/01: No overnight events patient is seen and examined at bedside. Patient was very alert and oriented and in good mood. Patient states he feels really good denies any abdominal pain. Patient denies any dysuria nausea vomiting. Patient stated Dr. Rojas has made an appointment to see him for outpatient procedure in June. Patient asked if he was to be discharged if he can be discharged with Gonsales catheter because he has urinary incontinence and he gets very messy for him as he still is recovering from hip replacement surgery. Patient has no other complaints Exam Vital Signs Temp Pulse Resp BP Pulse Ox O2 Del Method 98.4 F 86 18 122/80 97 Room Air 05/01/24 12:00 05/01/24 12:00 05/01/24 12:00 05/01/24 12:00 05/01/24 12:00 05/01/24 12:00 Narrative Exam GENERAL: A&Ox3 . Awake, Not in acute distress NEURO: no focal neurological deficits HEENT: Atraumatic, Normocephalic. mucous membranes moist. Eyes open, symmetrical, & clear HEART: Normal Heart Sounds LUNGS: Clear to auscultation with no wheezing or crackles. ABDOMEN: soft, non-distended, non-tender, no guarding or rebound tenderness SKIN: No Rash or ecchymoses, Pt. has a gonsales cathether with urine output EXTREMITIES: No edema, tenderness, able to move all 4 extremities, pedal pulses palpated Objective Labs 05/02/24 05:38 05/02/24 05:38 Labs: Laboratory Results - last 24 hr 05/01/24 05:10 WBC 10.6 RBC 3.31 L Hgb 9.7 L Hct 29.0 L MCV 88 MCH 29.3 MCHC 33.4 RDW Std Deviation 46.0 H Plt Count 247 D Neut % (Auto) 61 Lymph % (Auto) 26 [place] % (Auto) 8 Eos % (Auto) 2 Baso % (Auto) 1 Neut # (Auto) 6.4 Lymph # (Auto) 2.7 [place] # (Auto) 0.8 Eos # (Auto) 0.2 Baso # (Auto) 0.1 Immature Gran # (Auto) 0.29 H Absolute Nucleated RBC 0.00 Immature Gran % 3 H Nucleated RBC % 0 Sodium 135 L Potassium 4.0 Chloride 108 H Carbon Dioxide 21.3 Anion Gap 6 L BUN 18 Creatinine 1.5 H Estim Creat Clear Calc 46.7 L eGFR 48 L BUN/Creatinine Ratio 12 Glucose 147 H Calculated Osmolality 275 Calcium 8.8 Corrected Calcium 9.3 Total Bilirubin 0.2 L AST 20 ALT 21 Alkaline Phosphatase 110 Total Protein 6.3 Albumin 3.4 Globulin 2.9 Albumin/Globulin Ratio 1.2 Quality Measures Quality Measures none Advance care planning discussed with:: patient Assessment & Plan Assessment Current Active Medications: Generic Name Dose Route Start Last Admin Trade Name Freq PRN Reason Stop Dose Admin Acetaminophen 650 mg 04/27/24 00:18 04/30/24 00:10 Acetaminophen 325 Mg Tablet PO 05/27/24 00:17 650 mg Q6H PRN Administration PAIN OR FEVER > 101 Dextrose 25 ml 04/27/24 00:32 Dextrose 50%-Water Inj 50 Ml Syringe IV 05/27/24 00:31 Q15MIN PRN BG 50-70 responsive npo pt Dextrose 50 ml 04/27/24 00:32 Dextrose 50%-Water Inj 50 Ml Syringe IV 05/27/24 00:31 Q15MIN PRN BG <50 OR BG <70 & pt unresponsive Finasteride 5 mg 04/27/24 09:00 05/01/24 08:19 Finasteride 5 Mg Tablet PO 05/27/24 08:59 5 mg QDAY EMELIA Administration Glucagon 1 mg 04/27/24 00:32 Glucagon Inj 1 Mg Vial IM Q15MIN PRN BG <70, and no IV access Heparin Sodium (Porcine) 5,000 unit 04/27/24 00:30 05/01/24 08:19 Heparin Sod Inj 5000 Unit/Ml Vial SC 05/11/24 00:29 5,000 unit Q12HR EMELIA Administration Meropenem 1,000 mg/ Sodium 50 mls @ 100 mls/hr 04/30/24 10:30 05/01/24 08:20 Chloride IV 05/07/24 10:29 100 mls/hr Q12HR EMELIA Administration Insulin Human Lispro 0 unit 04/27/24 07:30 05/01/24 11:23 Insulin Lispro (Admelog) 1 Unit/0.01 Ml Unit SC 05/27/24 07:29 3 unit ACHS EMELIA Administration Protocol Ondansetron HCl 4 mg 04/27/24 00:18 Ondansetron Inj 2 Mg/Ml Inj 2 Ml IV 05/27/24 00:17 Q6H PRN NAUSEA OR VOMITING Protocol Pantoprazole Sodium 40 mg 04/27/24 09:00 05/01/24 08:19 Pantoprazole 40 Mg Tablet PO 05/27/24 08:59 40 mg QDAY EMELIA Administration Sennosides 1 tab 04/27/24 09:00 05/01/24 08:18 Senna Tablet PO 05/27/24 08:59 1 tab QDAY EMELIA Administration Protocol Tamsulosin HCl 0.4 mg 04/27/24 09:00 05/01/24 08:19 Tamsulosin Hcl 0.4 Mg Capsule PO 05/27/24 08:59 0.4 mg QDAY EMELIA Administration Trimethoprim/Sulfamethoxazole 1 tab 04/29/24 21:00 05/01/24 08:18 Trimethoprim/Sulfa 160/800 Ds Tablet PO 05/06/24 20:59 1 tab BID EMELIA Administration Plan Mr. Hernandez is a 74-year-old male with past medical history of hypertension, urinary incontinence, DM, multiple episodes of urinary tract infections, recurrent hydronephrosis status post lithotripsy and stent placement was admitted for acute encephalopathy secondary due to UTI as well as JINA, hydronephrosis, unilateral obstructive uropathy and acute pyelonephritis, severe emphysematous cystitis treatment and management. #obstructive uropathy #Pyuria in the setting #UTI #JINA versus JINA on CKD #left unilateral obstructive uropathy #left Hydronephrosis #Left pyelonephritis #Severe emphysematous cystitis -Patient Biba to emergency department due to mild confusion, patient stated that recently he was more somnolent, had low appetite, had 1 episode of nausea and vomiting. -Labs revealed leukocytosis, anemia, electrolyte disbalance, potassium of 5.5, creatinine of 1.9, BUN is 35, EGFR 36 -UA revealed turbid urine with WBC 4325, RBC 248, positive LE -Patient was complaining of dysuria and suprapubic tenderness -A CT abdomen/pelvis was performed, which revealed the following findings: -Left ureteral stent with persistent moderate hydronephrosis -A 7 mm calculus in the mid left ureter -Left pyelonephritis -Severe emphysematous cystitis Plan: -IVF -Switched Zosyn to meropenem 100 Mg every 12 hours 04/30/2024? -Trimethoprim/sulfa started by Dr. Ambrocio on 04/29/24- -Follow urine culture-positive for E. coli with multidrug resistance -blood culture-no growth after 24 hours -Gonsales catheter- with cloudy output -Continue home finasteride and tamsulosin -Urology is on board, Dr. Rojas accepted the case and is following the patient -Per Dr. Rojas note patient will be seeing him outpatient for lithotripsy after patient is stable to and completes rehab status post hip replacement surgery -KUB findings-air present in the left renal collecting system and left ureter, severe osteopenia, nonobstructing bowel gas pattern #DM type II --blood glucose is 133 -HbA1c 6.4 on 04/27/24 Plan: -Hold home medication -Insulin sliding scale -Carb consistent diet #History of hypertension -Currently BP is under control -Monitor vital signs #Electrolyte disbalance #Hyperkalemia-resolved #Hyponatremia-resolved -Patient was given Kayexalate in ED -Patient received normal saline bolus currently is on maintenance -EKG without peaked T waves -Close monitor -Management as needed Other -TSH 0.37 -Free T4 0.99 Patient stated that he is taking fluconazole 200 mg daily for last 30 years, however is not sure why Patient also stated that he is not taking Eliquis Disposition:[facility] for in patient management of UTI with IV antibiotics DVT prophylaxis: heparin GI prophylaxis: PPI Diet: carb consistent Lines: PIV CODE STATUS:Full code Assessment and plan discussed with my attending physician Dr. Laura Rodriguez ([id number]-1)- Internal medicine resident Attending Provider Attestation/Addendum Patient was seen and examined. He is afebrile. He has no flank pain or hematuria. Patient is also tolerating oral fluid and oral intake. No mental status change. Patient has UTI with ESBL E. coli. The patient is on meropenem. Discussed with housestaff.
[2024-05-01] MEDS: ACETAMINOPHEN 325 MG TABLET 650 MG PO (20:04)
[2024-05-02] VITALS: BP 123/85; PULSE 60; RESP 18; TEMP 36.4; O2SAT 95
[2024-05-02 04:00] VITALS: BP 118/79; PULSE 79; RESP 18; TEMP 36.6; O2SAT 96
[2024-05-02 06:04] LABS: Basophils # (Auto) 0.1 Thou/mm3 (0.0-0.2); Basophils % (Auto) 1 % (0-2.5); Eosinophils # (Auto) 0.3 Thou/mm3 (0.0-0.5); Eosinophils % (Auto) 3 % (0-10); Hematocrit 28.6 % (41.0-53.0); Hemoglobin 9.5 g/dL (13.5-16.0); Immature Granulocytes % (Auto) 3 % (0-0); Immature Granulocytes Auto 0.26 Thou/mm3 (0.00-0.00); Lymphocytes # (Auto) 2.9 Thou/mm3 (1.0-4.8); Lymphocytes % (Auto) 28 % (10-50); Mean Corpuscular HGB Conc 33.2 g/dl (31.0-37.0); Mean Corpuscular Hemoglobin 29.4 pg (25.0-35.0); Mean Corpuscular Volume 89 fL (80-100); Monocytes # (Auto) 0.8 Thou/mm3 (0.0-0.8); Monocytes % (Auto) 8 % (0-12); Neutrophils # (Auto) 6.2 Thou/mm3 (1.8-7.7); Neutrophils % (Auto) 59 % (37-80); Nucleated Red Blood Cell % 0 /100 WBC (0); Platelet Count 235 Thou/mm3 (140-440); RDW Standard Deviation 47.5 fL (35.1-43.9); Red Blood Count 3.23 Miln/mm3 (4.50-5.90); White Blood Count 10.6 Thou/mm3 (3.8-10.6)
[2024-05-02 06:37] LABS: Alanine Aminotransferase 34 U/L (10-49); Albumin, Serum 3.3 gm/dL (3.4-4.8); Albumin/Globulin Ratio 1.2 (1.2-2.2); Alkaline Phosphatase 107 U/L (46-116); Anion Gap 9 (7-16); Aspartate Amino Transferase 31 U/L (0-34); BUN/Creatinine Ratio 11 Ratio (12-20); Bilirubin,Total 0.3 mg/dL (0.3-1.2); Blood Urea Nitrogen 16 mg/dL (9-23); Calcium 8.9 mg/dL (8.3-10.6); Calcium (Corrected) 9.5 mg/dL (8.5-10.1); Carbon Dioxide 20.1 mMol/L (20.0-31.0); Chloride 107 mMol/L (98-107); Creatinine (Component) 1.4 mg/dL (0.6-1.3); Estimated Creatinine Clearance 49.4 mL/min (>60); Globulin 2.8 gm/dL (2.3-3.5); Glucose 106 mg/dL (74-106); Osmolality,Calculated 273 (275-295); Potassium 4.2 mMol/L (3.4-5.1); Sodium 136 mMol/L (136-145); Total Protein 6.1 gm/dL (5.7-8.2); eGFR 52 See Note
[2024-05-02 07:41] VITALS: BP 123/83; PULSE 79; RESP 18; TEMP 36.2; O2SAT 97
[2024-05-02] MEDS: FINASTERIDE 5 MG TABLET PO (07:50)
[2024-05-02] MEDS: TRIMETHOPRIM/SULFA 160/800 DS TABLET 1 TAB PO (07:51)
[2024-05-02] MEDS: PANTOPRAZOLE 40 MG TABLET PO (07:51)
[2024-05-02] MEDS: HEPARIN SOD INJ 5000 UNIT/ML VIAL SC (07:51)
[2024-05-02] MEDS: TAMSULOSIN HCL 0.4 MG CAPSULE PO (07:51)
[2024-05-02] MEDS: SENNA TABLET 1 TAB PO (07:51)
[2024-05-02] MEDS: MEROPENEM INJ 1,000 MG in SODIUM CHLORIDE 0.9% (P) 50 ML 100 MG IV (08:45)
--- NOTE | 2024-05-02 10:33 | PC.SS ---
SS was informed by patient's nurse Nerissa that patient had discharge orders, SS inquired about patient needing IV Medication. Nerissa informed SS that patient will not be needing IV meds anymore and Dr's switched to PO, however patient will still need HH to be established for Wound Care. HH orders are in.
--- NOTE | 2024-05-02 11:31 | PC.NURSE ---
Pt called this nurse to his room. Friend Alicia at bedside. Pt states that at this time he does not feel safe to discharge to home and that he does not have adequate support in the home setting at this time. Dr. Terrell notified states he will come see the patient.
[2024-05-02] MEDS: INSULIN LISPRO (AdmeLOG) 1 UNIT/0.01 ML UNIT SC (11:38)
[2024-05-02 11:59] VITALS: BP 125/82; PULSE 80; RESP 18; TEMP 36.6; O2SAT 98
--- NOTE | 2024-05-02 12:01 | PC.SS ---
SS set up transportation for patient through [facility] services. [facility] will contact with ETA.
--- NOTE | 2024-05-02 12:19 | ESCONSULT_ITS ---
RE: OLIVER HERNANDEZ : 1950 DATE OF CONSULTATION: 04/27/2024 HISTORY OF PRESENT ILLNESS: Oliver Hernandez is a 74-year-old gentleman who came to the emergency room with history of left-sided pain and tenderness and he had urinary frequency with leakage. The patient has a history of left hip fracture, which was fixed by Dr. Parson in 02/2024. The patient also had a left distal ureteral stone and had a cystoscopy, left ureteral stent insertion, and extracorporeal shock wave lithotripsy for the left distal ureteral stone. The patient was in a care home and he had been having some pain in his left flank and he came to the emergency room. The emergency room physician saw him. The patient did not have any fever. His vital signs were stable. The patient was alert and oriented, but he did a CT scan of the abdomen, which revealed gas forming organisms in his urinary tract including his left ureter and bladder area. The patient also had a left ureteral stent in place with a 6-7 mm stone in the left upper ureter still present with a mild left hydronephrosis. The patient is admitted for his left-sided flank pain, mild hydronephrosis, left upper ureteral stone, and left ureteral stent in place with UTI with gas forming organisms. The patient did have a history of previous urinary calculi. PHYSICAL EXAMINATION: HEENT: Normal. NECK: Supple. LUNGS: Clear. CARDIOVASCULAR: Heart sounds are normal. ABDOMEN: Soft. The patient is alert and oriented. GENITOURINARY: Phallus is normal. Testes are down in scrotum. Smith catheter was placed in the emergency room draining clear urine. PLAN: We will do a blood culture, urine culture, starting on Zosyn antibiotic, with this picture the patient is not septic at this time and his hydronephrosis is mild. We will continue watching him with IV antibiotics. We will wait for the urine culture report and observe him. Thank you very much for your kind referral and for allowing me to see this patient. DT: 13:34:12 TT: 15:16:00 Ref: [id number] - TID: [id number]
--- NOTE | 2024-05-02 12:45 | ESDS_ITS ---
Planned Discharge Date 05/02/24 DS: Providers Provider Date of admission: 04/27/24 01:05 Primary care physician: Physician No Primary/Family Admitting Provider: Tomas Morton MD Attending Provider on Admission: Derek Sanchez MD Consults: 04/27/24 00:25 Consult to Urology Stat Comment: obstructive uropathy Consulting Provider: Marko Rojas 04/27/24 12:19 Referral Physical Therapy Routine Comment: Physician Instructions: 04/27/24 14:20 Referral Wound Care Stat Comment: 04/28/24 14:25 Referral Discharge Planning Routine Comment: Instructions: Will need home health for wound care on discharge Attending Provider on DC: Praneeth Terrell MD Discharging Provider: Praneeth Terrell MD DS: Diagnosis Problem List Completed Was Problem List Reviewed/Reconciled?: Yes Hospital Course Hospital Course Hospital course: Discharge Diagnoses: #Obstructive uropathy #Pyuria in the setting #UTI #JINA versus JINA on CKD #left unilateral obstructive uropathy #left Hydronephrosis #Left pyelonephritis #Severe emphysematous cystitis #DM type II #History of hypertension #Electrolyte imbalance #Hyperkalemia-resolved #Hyponatremia-resolved Service: Internal Medicine ? ? Consults: Urology services ? ? Procedures: None ? ? Hospital Course: Mr. Oliver Hernandez is a 74-year-old male with a significant medical history including hypertension, urinary incontinence, diabetes mellitus, recurrent urinary tract infections , and extensive nephrolithiasis, status post multiple lithotripsy procedures and stent placements. The patient presented to the emergency department with altered mental status and dysuria for three days duration, that was progressively worsening, which resolved shortly after IV fluids resusitation and Gonsales placement. Initial workup revealed leukocytosis with WBC 18.4, anemia, hemoglobin 11.0, hematocrit 33.4, electrolyte imbalances, hyponatremia, hyperkalemia potassium of 5.5, low bicarb 18.9, further labs revealed JINA with creatinine of 1.9, BUN is 35, EGFR 36, with UA revealed turbid urine, RBCs 248, LE positive, WBC 4325. Imaging findings: A CT abdomen/pelvis was performed, which revealed the following findings: Left ureteral stent with persistent moderate hydronephrosis A 7 mm calculus in the mid left ureter Left pyelonephritis Severe emphysematous cystitis The ED team initially attempted to transfer the patient to [facility] for higher-level care. However, after consultation with the urology on-call physician, who indicated that the patient did not require transfer and to con tinue IV antibiotics, and with input from Dr. Rojas, the patient's urologist, who recommended conservative management. Decision was made to admit patient for further management of UTI as well as JINA, hydronephrosis, unilateral obstructive uropathy and acute pyelonephritis, severe emphysematous cystitis treatment and management. In ED patient received Zosyn, NS, Kayexalate and was admitted for further management. Patient was continued on IV ABX as per urology's recommendations. A KUB was obtained which showed Left ureteral stent satisfactory position. Wound care was obtained for multiple pressure ulcers. Patient was again evaluated by Dr Carrillo, who recommended to continue with catheter drainage, give patient a trial of voiding and to Start on tamsulosin 0.4 mg p.o. daily, finasteride 5 mg p.o. daily which the patient had already been on. Patient was advised to followup with Dr. Rojas as an outpatient for further management of his hydrnephrosis secondary to nephrolithiasis. Patient was sent on TMP-SMX for 9 days duration for continued treatment and management. Patient's chronic conditions were managed by continuation of home medications. Patient was deemed medically safe and stable for discharge. Prior to discharge the patient was advised to follow up with primary care physician within 1-2 weeks of discharge and Urologist Dr. Rojas. All of the patients concerns and/or questions were answered with the patient verbalizing understanding. Time Spent with Patient Time attestation: Total time spent providing and/or coordinating discharge services: Exam Vital Signs Temp Pulse Resp BP Pulse Ox O2 Del Method 97.9 F 80 18 125/82 98 Room Air 05/02/24 11:59 05/02/24 11:59 05/02/24 11:59 05/02/24 11:59 05/02/24 11:59 05/02/24 11:59 Narrative Exam GENERAL: A&Ox3 . Awake, Not in acute distress NEURO: no focal neurological deficits HEENT: Atraumatic, Normocephalic. mucous membranes moist. Eyes open, symm etrical, & clear HEART: Normal Heart Sounds LUNGS: Clear to auscultation with no wheezing or crackles. ABDOMEN: soft, non-distended, non-tender, no guarding or rebound tenderness SKIN: No Rash or ecchymoses, Pt. has a gonsales cathether with clear urine output EXTREMITIES: No edema, tenderness, able to move all 4 extremities, pedal pulses palpated Discharge Plan Plan Patient Disposition: Xfer Skilled Nsg Fac (SNF) Patient condition on transfer: Stable Prescriptions/Referrals Prescriptions/Med Rec: New sulfamethoxazole-trimethoprim 800-160 mg Tablet 1 tab PO BID 9 Days Qty: 18 0RF Continued finasteride 5 mg tablet 5 mg PO QDAY fluconazole 200 MG tablet 400 mg PO HS Qty: 0 Patient Comments: patient does not now medications amlodipine [Norvasc] 10 MG tablet 10 mg PO QDAY Qty: 0 Patient Comments: patient does not now medications sitagliptin phos-metformin 50-1,000 mg Tablet 1 tab PO BID Patient Comments: patient does not now medications Multi-Day with Iron 18-400 mg-mcg Tablet 1 tab PO QDAY Patient Comments: patient does not now medications omega 3-cjs-xjs-fish oil 500-100 mg Capsule 1 cap PO QDAY Patient Comments: patient does not now medications tamsulosin 0.4 mg Capsule 0.4 mg PO QDAY psyllium husk [Daily Fiber] 0.52 gram Capsule 0.52 g PO QDAY ondansetron HCl 4 mg Tablet 4 mg PO Q6H PRN (Reason: Nausea) tramadol 50 mg Tablet 50 mg PO Q8H PRN (Reason: Pain) acetaminophen 650 mg Tablet Extended Release 650 mg PO Q8H PRN (Reason: Pain) bisacodyl [Dulcolax (bisacodyl)] 10 mg Suppository 10 mg WA QDAY PRN (Reason: Constipation) ferrous sulfate 325 mg (65 mg iron) Tablet 325 mg PO QDAY Eliquis 2.5 mg Tablet 2.5 mg PO BID Qty: 28 0RF Hold Instructions: Resume on 01/21/24. Janumet 50-1,000 mg tablet Patient Comments: TAKE 1 TABLET BY MOUTH TWICE A DAY WITH A MEAL Janumet 50-1,000 mg tablet 1,000 tab PO HS Patient Comments: TAKE 1 TABLET BY MOUTH TWICE A DAY WITH A MEAL Discontinued ciprofloxacin HCl [Cipro] 500 mg tablet 500 mg PO BID Qty: 14 0RF Referrals: Nerissa Pavon NP [Referring Provider] - Marko Rojas MD [Physician] - 05/05/24 2:00 pm (Follow up with Dr. Rojas in his office around 2pm, call office for appointment) Patient/Caregiver Discharge Instructions Other Discharge Activity Instructions:: Follow up with Urologist Dr. Rojas in his office on sunday05/05/24 at 2pm, call for appointment. Follow up with your primary care provider within 1-2 weeks, repeat Renal panel in 1-2 weeks by your primary care provider. Continue your home medications as previously prescribed. Start taking TMP-SMX 1 tab, twice a day for 9 days duration for continued treat ment of UTI. If your symptoms return and or worsen please return to the ED, or call emergency services. Education Materials: Understanding Urinary Tract ... Print Language: Senegalese Activity Restrictions/Additional Instructions: Follow up with Dr. Rojas in his office on sunday05/05/24 at 2pm, call for appointment. Follow up with your primary care provider within 1-2 weeks, repeat Renal panel in 1-2 weeks by your primary care provider. Continue your home medications as previously prescribed. Start taking TMP-SMX 1 tab, twice a day for continued treatment of UTI. If your symptoms return and or worsen please return to the ED, or call emergency services. Stand Alone Forms: [facility] Award Info., Patient Portal Info Letter Discharge Order Discharge Orders: Discharge (Routine); Ordered 05/02/24 Ordered By: Praneeth Terrell Quality Discharge Quality Measures VTE prophylaxis and sepsis Attestestation MD Attestation I have examined the patient, reviewed labs and imaging findings, discussed the case with the resident(s), and reviewed entered orders. I agree with the plan of care as outlined in this note. Dr. Washington
--- NOTE | 2024-05-02 12:52 | PC.SS ---
Addendum entered by Shama Becerril 05/02/24 13:18: SS met with patient at bedside to discuss SNF of choice. Patient reported he would like to discharge to [facility]. SS contacted Cayla from [facility] and she is able to accept patient. Amdol contacted SS and SS switched transportation destination to [facility], ETA was set up for 3:45PM. SS contacted patient's nurse and Nurse Sotero was covering nikunj at the time. ETA time was given to Sotero. Original Note: SS has sent inquiry to the local SNF using [facility].
--- NOTE | 2024-05-02 14:33 | PC.CM ---
Patient going to SNF and does not need home health.
[2024-05-02 16:00] VITALS: BP 127/66; PULSE 80; RESP 19; TEMP 36.7; O2SAT 97
== END 2024-05-02 16:00 | disposition skilled nursing facility (03) | DRG 690 ==
LOC: SERX 22:28 → SERHOLD 04-27 01:34 → S3SX 04-27 08:48
PROVIDERS: Nurse Practitioner Family; Student in an Organized Health Care Education/Training Program; Admitting Provider Student in an Organized Health Care Education/Training Program; Emergency Provider Emergency Medicine; Visit Provider Internal Medicine
DX: N13.6 Pyonephrosis (principal); G93.49 Other encephalopathy; N13.8 Other obstructive and reflux uropathy; Z16.12 Extended spectrum beta lactamase (ESBL) resistance; E87.1 Hypo-osmolality and hyponatremia; N17.9 Acute kidney failure, unspecified; N18.32 Chronic kidney disease, stage 3b; I12.9 Hypertensive chronic kidney disease with stage 1 through stage 4 chronic kidney disease, or unspecified chronic kidney disease; E87.5 Hyperkalemia; E11.22 Type 2 diabetes mellitus with diabetic chronic kidney disease; B96.20 Unspecified Escherichia coli [E. coli] as the cause of diseases classified elsewhere; D63.1 Anemia in chronic kidney disease; L89.90 Pressure ulcer of unspecified site, unspecified stage; N40.1 Benign prostatic hyperplasia with lower urinary tract symptoms; Z87.442 Personal history of urinary calculi; Z96.642 Presence of left artificial hip joint; Z87.440 Personal history of urinary (tract) infections; Z96.652 Presence of left artificial knee joint; Z99.3 Dependence on wheelchair; Z60.2 Problems related to living alone
CPT/HCPCS: 36415; 73502; 73630; 74018; 74176; 80053; 80061; 81001; 83036; 83605; 83735; 84100; 84145; 84439; 84443; 85025; 85610; 85730; 87040; 87077; 87086; 87186; 93005; 96361; 96365; 96372; 97162; 99285; J1643; J1815; J2185; J2543; J7030; J7050; A9270; J1644

== ENCOUNTER 2024-06-03 10:49 | Emergency (ER) | payer MEDICARE, MEDICAID, SELFPAY ==
[2024-06-03 10:53] VITALS: PULSE 82; RESP 20; O2SAT 99; BMI 21.7
[2024-06-03 10:57] VITALS: BP 111/76; PULSE 83; RESP 18; TEMP 36.9; O2SAT 99
--- NOTE | 2024-06-03 11:23 | PD.EDADULT ---
ED General RME/HPI General Chief complaint: General Adult/Misc Complain Stated complaint: LABS Time Seen by Provider: 06/03/24 11:22 Arrival date/time: 06/03/24 10:49 CC: Abnormal lab result HPI patient presents to the ER from assisted care rehab facility where the patient is recovering from a hip surgery performed at this hospital on the left hip. Patient has no complaints sitting is no pain states he has been ambulating on his hip and recovering fine . Patient denies fever chills chest pain shortness of breath difficulty breathing. Patient's physician Dr. Pringle notified us of an abnormal lab result and promptly had him transported via EMS. EMS reports stable vital signs and route. Related Data Home Medications ?Medication ?Instructions ?Recorded ?Confirmed fluconazole 200 mg tablet 400 mg PO HS ##0 09/18/12 04/29/24 amlodipine 10 mg tablet (Norvasc) 10 mg PO QDAY #0 tabs 09/10/13 04/29/24 multivitamin-ferrous 1 tab PO QDAY 04/09/18 01/16/24 fumarate-folic acid 18 mg-400 mcg tablet (Multi-Day with Iron) omega 3-dha 500 mg-epa 100 mg-fish 1 cap PO QDAY 04/09/18 01/16/24 oil capsule sitagliptin phosphate 50 1 tab PO BID 04/09/18 01/16/24 mg-metformin 1,000 mg tablet psyllium husk 0.52 gram capsule 0.52 g PO QDAY 07/05/18 01/16/24 (Daily Fiber) tamsulosin 0.4 mg capsule 0.4 mg PO QDAY 07/05/18 04/29/24 finasteride 5 mg tablet 5 mg PO QDAY 11/19/18 01/16/24 acetaminophen 650 mg 650 mg PO Q8H PRN Pain 01/16/24 01/16/24 tablet,extended release bisacodyl 10 mg rectal suppository 10 mg WI QDAY PRN Constipation 01/16/24 01/16/24 (Dulcolax (bisacodyl)) ferrous sulfate 325 mg (65 mg 325 mg PO QDAY 01/16/24 01/16/24 iron) tablet ondansetron HCl 4 mg tablet 4 mg PO Q6H PRN Nausea 01/16/24 01/16/24 tramadol 50 mg tablet 50 mg PO Q8H PRN Pain 01/16/24 01/16/24 sitagliptin phosphate 50 1,000 tab PO HS 04/29/24 04/29/24 mg-metformin 1,000 mg tablet (Junumet) sitagliptin phosphate 50 tab 04/29/24 04/29/24 mg-metformin 1,000 mg tablet (Junumet) Previous Rx's ?Medication ?Instructions ?Recorded apixaban 2.5 mg tablet (Eliquis) 2.5 mg PO BID #28 tabs 01/03/24 Allergies Allergy/AdvReac Type Severity Reaction Status Date / Time No Known Allergies Allergy Verified 06/03/24 10:58 Review of Systems Review of Systems Narrative Review of Systems: GEN: No fever, no chills, no weight loss EYES: No discharge, no visual changes, no pain HEENT: No ear pain, no congestion, no sore throat PULM: No shortness of breath, no cough, no congestion CV: No chest pain, no dyspnea on exertion, no palpitations GI: No nausea, no vomiting, no diarrhea, no pain, no constipation : No frequency, no urgency, no dysuria MUSC/SKEL: No joint pain, no back pain SKIN: No rash PSYCH: No hallucinations, no depression HEME/LYMPH: No easy bleeding or bruising tendencies NEURO: No weakness, no headache Course Quality Measures none Orders Category Date Time Status Diet Regular Diet 06/03/24 Dinner Active CMP [Comprehensive Metabolic Panel] Stat Lab 06/03/24 11:44 Completed Potassium Stat Lab 06/03/24 14:03 Completed Calcium Gluconate 10% Inj Med 06/03/24 12:36 Discontinued 1 gm IV X1 ONE Dextrose 50% Syr [D50w Syringe Abboject] Med 06/03/24 12:36 Discontinued 25 ml IV X1 ONE Insulin Regular Med 06/03/24 12:36 Discontinued 5 unit IV X1 ONE Vital Signs Vital signs: Vital Signs Temperature 98.4 F 06/03/24 10:57 Pulse Rate 83 06/03/24 10:57 Respiratory Rate 18 06/03/24 10:57 Blood Pressure 111/76 06/03/24 10:57 Pulse Oximetry (%) 99 06/03/24 10:57 Oxygen Delivery Method Room Air 06/03/24 10:57 [facility] Patient data External records reviewed:: [facility] previous records and EMS form Clinical information provided by:: patient and EMS Social determinants that could affect healthcare access:: none Patient has the following chronic illnesses:: Recent hip fracture with repair hypertension on Eliquis and diabetic. How is presenting disease/condition affected by chronic disease/condition?: uneffected by Evaluation data The following diagnostics were reviewed and interpreted by me:: lab results Lab and/or radiology exams considered but not ordered:: Potassium level is decreased from 5.8-5.1 we will discharge the patient home. Interpretation Summary: Hyperkalemia Medications Medications considered but not ordered:: None Medication administrations:: Medication Administration History Discontinued Medications Calcium Gluconate (Calcium Gluconate 10% Inj 1 Gm/10 Ml Vial) 1 gm IV X1 ONE Stop: 06/03/24 12:37 Last Admin: 06/03/24 12:58 Dose: 1 gm Documented By: BIBIANA Dextrose (Dextrose 50%-Water Inj 50 Ml Syringe) 25 ml IV X1 ONE Stop: 06/03/24 12:37 Last Admin: 06/03/24 12:58 Dose: 25 ml Documented By: BIBIANA Insulin Human Regular (Insulin Hum Regular 1 Unit/0.01 Ml (Per Unit)) 5 unit IV X1 ONE Stop: 06/03/24 12:37 Last Admin: 06/03/24 12:57 Dose: 5 unit Documented By: BIBIANA Co-signed By: RJ None Consultations Consultation(s) initiated? (list below): No Diagnosis Differential Diagnosis ED Complaint MDM: Hyperkalemia unspecified electrolyte imbalance DKA Most likely diagnosis given after review of the tests above:: Hyperkalemia Admission Indicated Admission indicated?: not indicated Explain why admission is indicated or not indicated:: Stable for discharge Admission Request Was there a request for admission?: No Disposition Plan Disposition Plan: Discharge Discharge Attestation Discharge Attestation: The patient and all family members were given an opportunity to ask questions and understood the discharge instructions. Discharge instructions specifically effects, indications for sooner follow up or return to the emergency department, and the expected course of current diagnosis. Patient condition: Stable Medical Decision Making Differential Diagnosis Differential Diagnosis: Hyperkalemia unspecified electrolyte imbalance DKA Lab Data 06/03/24 14:03 Labs: Lab Results 06/03/24 06/03/24 Range/Units 11:44 14:03 Sodium 135 L (136-145) mMol/L Potassium 5.8 H 5.2 H D (3.4-5.1) mMol/L Chloride 105 (98-107) mMol/L Carbon Dioxide 21.9 (20.0-31.0) mMol/L Anion Gap 8 (7-16) BUN 39 H (9-23) mg/dL Creatinine 2.7 H (0.6-1.3) mg/dL Estim Creat Clear Calc 24.3 L (>60) mL/min eGFR 24 L (60 - ) See Note BUN/Creatinine Ratio 14 (12-20) Ratio Glucose 105 (74-106) mg/dL Calculated Osmolality 279 (275-295) Calcium 9.1 (8.3-10.6) mg/dL Corrected Calcium 9.4 (8.5-10.1) mg/dL Total Bilirubin 0.3 (0.3-1.2) mg/dL AST < 8 (0-34) U/L ALT 18 (10-49) U/L Alkaline Phosphatase 99 (46-116) U/L Total Protein 6.5 (5.7-8.2) gm/dL Albumin 3.6 (3.4-4.8) gm/dL Globulin 2.9 (2.3-3.5) gm/dL Albumin/Globulin Ratio 1.2 (1.2-2.2) Discharge Plan Plan Patient Disposition: HOME (Self Care) Patient condition on transfer: Stable Prescriptions/Referrals Prescriptions/Med Rec: No Action finasteride 5 mg tablet 5 mg PO QDAY fluconazole 200 MG tablet 400 mg PO HS Qty: 0 Patient Comments: patient does not now medications amlodipine [Norvasc] 10 MG tablet 10 mg PO QDAY Qty: 0 Patient Comments: patient does not now medications sitagliptin phos-metformin 50-1,000 mg Tablet 1 tab PO BID Patient Comments: patient does not now medications Multi-Day with Iron 18-400 mg-mcg Tablet 1 tab PO QDAY Patient Comments: patient does not now medications omega 9-shu-kdv-fish oil 500-100 mg Capsule 1 cap PO QDAY Patient Comments: patient does not now medications tamsulosin 0.4 mg Capsule 0.4 mg PO QDAY psyllium husk [Daily Fiber] 0.52 gram Capsule 0.52 g PO QDAY ondansetron HCl 4 mg Tablet 4 mg PO Q6H PRN (Reason: Nausea) tramadol 50 mg Tablet 50 mg PO Q8H PRN (Reason: Pain) acetaminophen 650 mg Tablet Extended Release 650 mg PO Q8H PRN (Reason: Pain) bisacodyl [Dulcolax (bisacodyl)] 10 mg Suppository 10 mg WI QDAY PRN (Reason: Constipation) ferrous sulfate 325 mg (65 mg iron) Tablet 325 mg PO QDAY Eliquis 2.5 mg Tablet 2.5 mg PO BID Qty: 28 0RF Hold Instructions: Resume on 01/21/24. Janumet 50-1,000 mg tablet Patient Comments: TAKE 1 TABLET BY MOUTH TWICE A DAY WITH A MEAL Janumet 50-1,000 mg tablet 1,000 tab PO HS Patient Comments: TAKE 1 TABLET BY MOUTH TWICE A DAY WITH A MEAL Referrals: Nerissa Pavon, STEEL SAMPLER [Primary Care Provider] - In 1 week Problem List Clinical Impression: Hyperkalemia Patient/Caregiver Discharge Instructions Education Materials: Hyperkalemia Dc Additional Instructions: Follow-up with your primary care provider get regular draws on your blood work. If there is worsening symptoms return the emergency room medially for further evaluation. Print Language: Citizen Of [place] Stand Alone Forms: Alina Award Info., Work/School Release, Patient Portal Info Letter AN/MICHAEL Supervising Physician AN/MICHAEL Supervising Physician: Sotero Bonilla ENP
[2024-06-03 12:22] LABS: Alanine Aminotransferase 18 U/L (10-49); Albumin, Serum 3.6 gm/dL (3.4-4.8); Albumin/Globulin Ratio 1.2 (1.2-2.2); Alkaline Phosphatase 99 U/L (46-116); Anion Gap 8 (7-16); Aspartate Amino Transferase < 8 U/L (0-34); BUN/Creatinine Ratio 14 Ratio (12-20); Bilirubin,Total 0.3 mg/dL (0.3-1.2); Blood Urea Nitrogen 39 mg/dL (9-23); Calcium 9.1 mg/dL (8.3-10.6); Calcium (Corrected) 9.4 mg/dL (8.5-10.1); Carbon Dioxide 21.9 mMol/L (20.0-31.0); Chloride 105 mMol/L (98-107); Creatinine (Component) 2.7 mg/dL (0.6-1.3); Estimated Creatinine Clearance 24.3 mL/min (>60); Globulin 2.9 gm/dL (2.3-3.5); Glucose 105 mg/dL (74-106); Osmolality,Calculated 279 (275-295); Potassium 5.8 mMol/L (3.4-5.1); Sodium 135 mMol/L (136-145); Total Protein 6.5 gm/dL (5.7-8.2); eGFR 24 See Note
[2024-06-03] MEDS: INSULIN HUM REGULAR 1 UNIT/0.01 ML (PER UNIT) 5 UNIT IV (12:57)
[2024-06-03] MEDS: DEXTROSE 50%-WATER INJ 50 ML SYRINGE 25 ML IV (12:58)
[2024-06-03] MEDS: CALCIUM GLUCONATE 10% INJ 1 GM/10 ML VIAL IV (12:58)
[2024-06-03 13:28] VITALS: BP 112/75; PULSE 96; RESP 17; O2SAT 100
[2024-06-03 14:27] LABS: Potassium 5.2 mMol/L (3.4-5.1)
[2024-06-03 14:41] VITALS: BP 104/74; PULSE 93; RESP 15; TEMP 37; O2SAT 100
--- NOTE | 2024-06-03 14:55 | PC.CC ---
Addendum entered by Tobi Acuna II 06/03/24 17:03: 1605-Call to aimee Castillo has been confirmed for 1845. Original Note: ASW engaged by ED provider Chad, that pt will need gurney transport back to [facility]. 2512-ASW spoke with Ricarda with [facility], pending call back with YONAS.
--- NOTE | 2024-06-03 15:14 | PC.NURSE ---
Called Shant and gave report to Rosie.
[2024-06-03 17:52] VITALS: BP 113/76; PULSE 95; RESP 17; TEMP 36.8; O2SAT 98
== END 2024-06-03 18:39 | disposition home or self-care (01) ==
PROVIDERS: Registered Nurse General Practice; Emergency Provider Emergency Medicine; PCP Nurse Practitioner Family
DX: E87.5 Hyperkalemia (principal)
CPT/HCPCS: 36415; 80053; 84132; 99284; J0612; J1815

== ENCOUNTER 2024-06-06 08:00 | Day surgery (SDC) | payer MEDICARE, MEDICAID, SELFPAY ==
--- NOTE | 2024-06-05 11:50 | ESHP_ITS ---
RE: OLIVER HERNANDEZ : 1950 DATE OF ADMISSION: 06/06/2024 HISTORY OF PRESENT ILLNESS: Oliver Hernandez is a gentleman with left ureteral calculus. He is now scheduled to have ESWL for left ureteral calculus. The patient has a history of urinary calculi in the past. He had cystoscopy, left ureteral stent insertion, and ESWL. He still has a residual stone in the left ureter, which is about 6-7 mm in size. He is scheduled to have ESWL for left ureteral stone. The patient had a history of left hip fracture, which was fixed by Dr. Parson and he has been in a assisted. He had a history of E. coli urinary tract infection and had surgery for left hip fracture by Dr. Parson. The patient had a left percutaneous nephrostomy done in the past for the left ureteral stone. The patient also had vasectomy in the past. ALLERGIES: NONE KNOWN. PAST MEDICAL HISTORY: The patient has a history of diabetes mellitus, history of urinary tract infections. HOME MEDICATIONS: The patient takes; 1. Norvasc. 2. Tamsulosin. 3. 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 4. He takes Janumet. PHYSICAL EXAMINATION: HEENT: Normal NECK: Supple. LUNGS: Clear. CARDIOVASCULAR: Heart sounds are normal. ABDOMEN: Soft without any organomegaly. No guarding. No rigidity. EXTREMITIES: Normal. IMPRESSION: Left ureteral stone. PLAN: ESWL for left ureteral stone. The patient's last urine culture sensitivity examination showed E. coli urinary tract infection sensitive to nitrofurantoin and Bactrim. Planned procedure, risks, and complications have been discussed with the patient. The patient has understood them and agreed to proceed. DT: 11:06:23 TT: 11:49:00 Ref: [id number] - TID: [id number]
--- NOTE | 2024-06-05 14:55 | SUR.PREOP ---
Instructions given to Julieth nurse at [facility], pt to be here at 0800 tomorrow, come NPO after MN, may take HTN meds with a sip of water. Labs will be done in AM, [facility] was unable to send pt for registration due to transport issues.
[2024-06-06] VITALS (8 sets, daily range): BP systolic 97–105; BP diastolic 66–76; PULSE 64–80; RESP 12–20; TEMP 36.2–36.6; O2SAT 95–100; BMI 21.7
--- NOTE | 2024-06-06 06:00 | XR_ITS ---
Examination: Abdomen AP single view Technique: AP portable supine abdomen, single view Exam date and time: June 06, 2024 1008 hours INDICATIONS: History kidney stones FINDINGS: Left ureteral stent satisfactory position Ventricular peritoneal shunt tube Right common iliac artery vascular stent The mid left ureteral calculus described on the CT stone study April 26, 2024 is not clearly visualized on this exam IMPRESSION: Left ureteral stent satisfactory position
[2024-06-06] MEDS: RINGERS LACTATED 1000 ML 1,000 ML 20 ML IV (08:50)
--- NOTE | 2024-06-06 08:50 | SUR.PREOP ---
Dr Rojas made aware that pt is incontinent and he cannot urinate for UA, no orders given
[2024-06-06 08:54] LABS: Basophils % (Auto) 0 % (0-2.5); Eosinophils # (Auto) 0.2 Thou/mm3 (0.0-0.5); Eosinophils % (Auto) 2 % (0-10); Hematocrit 33.9 % (41.0-53.0); Hemoglobin 11.1 g/dL (13.5-16.0); Immature Granulocytes % (Auto) 2 % (0-0); Lymphocytes # (Auto) 1.7 Thou/mm3 (1.0-4.8); Lymphocytes % (Auto) 17 % (10-50); Mean Corpuscular HGB Conc 32.7 g/dl (31.0-37.0); Mean Corpuscular Hemoglobin 30.8 pg (25.0-35.0); Mean Corpuscular Volume 94 fL (80-100); Monocytes # (Auto) 1.2 Thou/mm3 (0.0-0.8); Monocytes % (Auto) 11 % (0-12); Neutrophils # (Auto) 6.9 Thou/mm3 (1.8-7.7); Neutrophils % (Auto) 67 % (37-80); Nucleated Red Blood Cell % 0 /100 WBC (0); Platelet Count 301 Thou/mm3 (140-440); RDW Standard Deviation 52.8 fL (35.1-43.9); White Blood Count 10.2 Thou/mm3 (3.8-10.6)
[2024-06-06 09:01] LABS: Alanine Aminotransferase 20 U/L (10-49); Albumin, Serum 4.2 gm/dL (3.4-4.8); Albumin/Globulin Ratio 1.4 (1.2-2.2); Alkaline Phosphatase 132 U/L (46-116); Anion Gap 11 (7-16); Aspartate Amino Transferase 13 U/L (0-34); BUN/Creatinine Ratio 16 Ratio (12-20); Bilirubin,Total 0.3 mg/dL (0.3-1.2); Blood Urea Nitrogen 31 mg/dL (9-23); Calcium 9.5 mg/dL (8.3-10.6); Calcium (Corrected) 9.5 mg/dL (8.5-10.1); Carbon Dioxide 24.2 mMol/L (20.0-31.0); Chloride 104 mMol/L (98-107); Globulin 3.1 gm/dL (2.3-3.5); Glucose 91 mg/dL (74-106); Osmolality,Calculated 284 (275-295); Potassium 4.4 mMol/L (3.4-5.1); Sodium 139 mMol/L (136-145); Total Protein 7.3 gm/dL (5.7-8.2); eGFR 34 See Note
--- NOTE | 2024-06-06 11:30 | SUR.PHASEI ---
1130: Pt. wakes to name then drifts back to sleep, ,vitals stable, breathing unlabored, no complaint of pain or nausea, no dressing in place, no active bleed noted, report received from MD Vidal and Clarissa OROZCO.
--- NOTE | 2024-06-06 12:07 | SUR.OPER ---
power 8 3000 shock 2.47 fluro
--- NOTE | 2024-06-06 12:40 | SUR.PHASEII ---
1240: Pt. AAOx4, vitals stable, breathing unlabored, no complaint of pain or nausea, no dressing in place, no active bleed noted, pt. tolerated sips of juice well, pt. transferred to wheelchair with transfer device, tolerated it well, gave discharge instructions to the pt. and his ride, both verbalized understanding and had no further questions. Pt. left with all personal belongings. On transfer to vehicle, pt. was assisted to sit on ground due to pt. slowly falling and unable to pivot his way into the car. Pt. sat down on ground with assist, and was transferred back into wheelchair. Nurse brought help and transfer device and transferred pt. into vehicle again and was successful, Pt. verbalized he was ok.
--- NOTE | 2024-06-06 15:33 | ESOP_ITS ---
RE: JANE OWENS : 1950 DATE OF OPERATION: 06/06/2024 PREOPERATIVE DIAGNOSIS: Left midureteral stone with history of severe left urinary tract infection. POSTOPERATIVE DIAGNOSIS: Left midureteral stone with history of severe left urinary tract infection. PROCEDURE PERFORMED: ESWL for the left midureteral stone. ANESTHESIA: General by Dr. Vidal. INDICATION: The patient is a 74-year-old gentleman, who had left ureteral stone. He had left percutaneous nephrostomy. Then, he had a left ureteral stent insertion and removal of the left pericardial nephrostomy. He had a left ESWL done several months ago. He had been to the [facility]. He had a severe UTI and was seen in the emergency room with gas forming organisms in his upper urinary tract in bladder area. The patient had a CT scan, which revealed persistent 7 mm stone in the left midureter. Now, patient is scheduled to have ESWL for the left ureteral stone. Planned procedure, risks and complications have been discussed with patient. The patient understood them and agreed to proceed. DESCRIPTION OF PROCEDURE: After the patient was brought to the operating table under adequate general anesthesia, he was placed on Dornier Delta 3 lithotripsy machine. The patient's stone appears to be radiolucent and it is hard to see, but comparing with his previous CT scan, we tried to see that the stone is located near the crest of the iliac bone on the left side. The 3000 shocks were given to this area up to power level 8. The patient tolerated the entire procedure well and left the room in good condition. PLAN: The patient has been able to void well without a catheter and we will try to remove his left ureteral stent in about a few weeks' time after this procedure. Thank you very much for your kind referral. DT: 11:31:52 TT: 15:32:00 Ref: [id number] - TID: [id number]
== END 2024-06-06 12:40 | disposition home or self-care (01) ==
PROVIDERS: Anesthesiology; PCP Nurse Practitioner Family; Referring Provider Surgery; Visit Provider Surgery
PROC: (CPT 50590; principal; 2024-06-06 10:45)
DX: N20.1 Calculus of ureter (principal); E11.9 Type 2 diabetes mellitus without complications; Z87.440 Personal history of urinary (tract) infections; Z87.442 Personal history of urinary calculi
CPT/HCPCS: 50590; 36415; 74018; 80053; 81001; 85025; 87086; J0694; J2250; J2405; J2704; J2765; J3010; J7120

== ENCOUNTER → 2024-08-07 | Outpatient (CLI) | payer MEDICARE, SELFPAY ==
[2024-08-07 10:34] LABS: Collection Type, Urine Clean Catch; Squamous Epithelial Cell,Urine 0 /hpf (0-5)
[2024-08-07 11:01] LABS: Basophils # (Auto) 0.1 Thou/mm3 (0.0-0.2); Basophils % (Auto) 0 % (0-2.5); Eosinophils % (Auto) 0 % (0-10); Hematocrit 30.4 % (41.0-53.0); Immature Granulocytes % (Auto) 1 % (0-0); Immature Granulocytes Auto 0.12 Thou/mm3 (0.00-0.00); Lymphocytes % (Auto) 7 % (10-50); Mean Corpuscular HGB Conc 32.9 g/dl (31.0-37.0); Mean Corpuscular Hemoglobin 31.2 pg (25.0-35.0); Mean Corpuscular Volume 95 fL (80-100); Monocytes # (Auto) 0.7 Thou/mm3 (0.0-0.8); Monocytes % (Auto) 5 % (0-12); Neutrophils # (Auto) 12.1 Thou/mm3 (1.8-7.7); Neutrophils % (Auto) 86 % (37-80); Nucleated Red Blood Cell % 0 /100 WBC (0); Platelet Count 317 Thou/mm3 (140-440); RDW Standard Deviation 53.3 fL (35.1-43.9); Red Blood Count 3.21 Miln/mm3 (4.50-5.90)
[2024-08-07 11:09] LABS: Bacteria,Urine 1+; Bilirubin,Urine Negative (Negative); Blood,Urine 2+ (Negative); Glucose, Urine Negative (Negative); Ketones,Urine Negative (Negative); Leukocyte Esterase,Urine Positive (Negative); Nitrite,Urine Negative (Negative); Protein,Urine 1+ (Neg - Trace); RBC,Urine 31 /hpf (0-3); Urobilinogen,Urine Negative mg/dL (0.0-1.0); WBC,Urine 5484 /hpf (0-5)
[2024-08-07 11:13] LABS: Clarity,Urine Turbid (Clear/Hazy); Color,Urine Amber (Lt Yel-Yel); Culture Indicated,Urine Yes
[2024-08-07 11:33] LABS: Glucose Estimated Average 97 mg/dL (80-131)
[2024-08-07 11:36] LABS: Creatinine MALB Rnd Ur 36 mg/dL (30-125); Microalbumin Creat Ratio 675 mg/gCrea (<30); Microalbumin, Random Urine 243 mg/L (0-300)
[2024-08-07 11:51] LABS: Alanine Aminotransferase 18 U/L (10-49); Albumin/Globulin Ratio 1.4 (1.2-2.2); Alkaline Phosphatase 112 U/L (46-116); Anion Gap 12 (7-16); Aspartate Amino Transferase 14 U/L (0-34); BUN/Creatinine Ratio 25 Ratio (12-20); Bilirubin,Total 0.4 mg/dL (0.3-1.2); Blood Urea Nitrogen 42 mg/dL (9-23); Calcium 9.5 mg/dL (8.3-10.6); Calcium (Corrected) 9.5 mg/dL (8.5-10.1); Carbon Dioxide 17.6 mMol/L (20.0-31.0); Chloride 113 mMol/L (98-107); Cholesterol 163 mg/dL (132-200); Creatinine (Component) 1.7 mg/dL (0.6-1.3); Globulin 2.9 gm/dL (2.3-3.5); Glucose 125 mg/dL (74-106); HDL Cholesterol 41 mg/dL (40-60); LDL Cholesterol,Calculated 96 mg/dL (0-130); Osmolality,Calculated 296 (275-295); Sodium 143 mMol/L (136-145); Total Protein 6.9 gm/dL (5.7-8.2); Triglycerides 132 mg/dL (30-150); eGFR 42 See Note
[2024-08-07 11:54] LABS: Prostate Specific Antigen 0.86 ng/mL (0-4.00)
== END | disposition home or self-care (01) ==
LOC: COPL 10:11
PROVIDERS: PCP Nurse Practitioner Family; Referring Provider Nurse Practitioner Family; Visit Provider Nurse Practitioner Family
DX: E11.40 Type 2 diabetes mellitus with diabetic neuropathy, unspecified (principal); E78.2 Mixed hyperlipidemia; N40.1 Benign prostatic hyperplasia with lower urinary tract symptoms; I10 Essential (primary) hypertension
CPT/HCPCS: 36415; 80053; 80061; 81001; 82043; 82570; 83036; 84153; 84443; 85025; 87077; 87086; 87186

== ENCOUNTER 2024-08-22 10:56 | Emergency (ER) | payer MEDICARE, SELFPAY ==
[2024-08-22 10:57] VITALS: BMI 21.7
--- NOTE | 2024-08-22 11:58 | PD.EDMALE ---
ED Male Genitalurinary RME/HPI General Chief complaint: Urogenital-Male Stated complaint: PCP SENT TO HAVE CATHETER PLACED Time Seen by Provider: 08/22/24 11:30 Arrival date/time: 08/22/24 10:56 RME / HPI RME / HPI Narrative: 74-year-old male patient was sent to us by urologist for Smith catheter insertion, patient went to PCP today due to urinary incontinence, urgency according to the patient has been having the symptoms for several days. Denies any dysuria denies any other complaints no medication was taken prior to ER visit. Related Data Home Medications ?Medication ?Instructions ?Recorded ?Confirmed fluconazole 200 mg tablet 400 mg PO HS ##0 09/18/12 06/05/24 amlodipine 10 mg tablet (Norvasc) 10 mg PO QDAY #0 tabs 09/10/13 06/05/24 multivitamin-ferrous 1 tab PO QDAY 04/09/18 06/05/24 fumarate-folic acid 18 mg-400 mcg tablet (Multi-Day with Iron) omega 3-dha 500 mg-epa 100 mg-fish 1 cap PO QDAY 04/09/18 06/05/24 oil capsule psyllium husk 0.52 gram capsule 0.52 g PO QDAY 07/05/18 06/05/24 (Daily Fiber) tamsulosin 0.4 mg capsule 0.4 mg PO QDAY 07/05/18 06/05/24 finasteride 5 mg tablet 5 mg PO QDAY 11/19/18 06/05/24 acetaminophen 650 mg 650 mg PO Q8H PRN Pain 01/16/24 06/05/24 tablet,extended release bisacodyl 10 mg rectal suppository 10 mg NC QDAY PRN Constipation 01/16/24 06/05/24 (Dulcolax (bisacodyl)) ondansetron HCl 4 mg tablet 4 mg PO Q6H PRN Nausea 01/16/24 06/05/24 tramadol 50 mg tablet 50 mg PO Q8H PRN Pain 01/16/24 06/05/24 sitagliptin phosphate 50 1,000 tab PO BID 04/29/24 06/05/24 mg-metformin 1,000 mg tablet (Janumet) ascorbic acid (vitamin C) 500 mg 500 mg PO BID 06/05/24 06/05/24 tablet (Vitamin C) sertraline 25 mg tablet 25 mg PO QDAY 06/05/24 06/05/24 sodium polystyrene sulfonate 15 15 g PO HS 06/05/24 06/05/24 gram/60 mL oral suspension Previous Rx's ?Medication ?Instructions ?Recorded apixaban 2.5 mg tablet (Eliquis) 2.5 mg PO BID #28 tabs 01/03/24 Held on 06/06/24. Instructions: Resume on 06/09/24. cefuroxime axetil 500 mg tablet 500 mg PO BID #14 tabs 06/06/24 hydrocodone 5 mg-acetaminophen 325 1 tab PO Q6H PRN pain #30 tabs 06/06/24 mg tablet Allergies Allergy/AdvReac Type Severity Reaction Status Date / Time No Known Allergies Allergy Verified 08/22/24 10:58 Review of Systems Review of Systems Narrative Review of Systems: Review of system reviewed and within normal limits except mentioned in HPI ED Exam Narrative Physical exam: VITAL SIGNS: Reviewed. GENERAL APPEARANCE: Alert and interactive, follows commands, no acute distress, HEAD AND FACE: Non-traumatic. ENT: PERRL, pink conjunctivitis, eyelid no trauma, Mucous membrane moist. NECK: Supple, nontender, no nuchal rigidity. CHEST: No tenderness, no crepitus, no paradoxical movement, no retractions. LUNGS: Clear, well ventilated, symmetric, no rales, no wheezing, no ronchi, no stridor, good breath sounds bilaterally. HEART: Regular rate, regular rhythm, no murmur, no gallops. ABDOMEN: Soft, positive bowel sounds, nondistended, no guarding, nontender, no rebound, no masses, RECTAL: Deferred. GENITAL: Deferred. NEUROLOGICAL: Gross motor function intact sensory function intact, Appropriate for age. MUSCULOSKELETAL: low back nontender, full range of motion. EXTREMITIES: Nontender, full range of motion. SKIN: Color pink, dry, no rash, no lacerations, no abrasions, no contusions. LYMPHATICS: Deferred. Course Quality Measures none Orders Category Date Time Status Smith [Urinary Catheter] QS Care 08/22/24 11:57 Active Smith to Leg Bag Routine Care 08/22/24 11:58 Ordered UA, C/S IF [Urinalysis, C/S if Indicated] Stat Lab 08/22/24 13:19 Completed Vital Signs Vital signs: Vital Signs Temperature 98.0 F 08/22/24 12:03 Pulse Rate 95 08/22/24 12:03 Respiratory Rate 18 08/22/24 12:03 Blood Pressure 122/81 08/22/24 12:03 Pulse Oximetry (%) 99 08/22/24 12:03 Oxygen Delivery Method Room Air 08/22/24 12:03 Urogenital - Male [facility] Narrative MDM Narrative:: 74-year-old male patient was sent to us by urologist for Smith catheter insertion, patient went to PCP today due to urinary incontinence, urgency according to the patient has been having the symptoms for several days. Denies any dysuria denies any other complaints no medication was taken prior to ER visit. Urinalysis came back unremarkable no UTI. Smith catheter was inserted and drained more than 500 cc clear urine. Patient data External records reviewed:: None Clinical information provided by:: patient Social determinants that could affect healthcare access:: none Patient has the following chronic illnesses:: BPH, hypertension How is presenting disease/condition affected by chronic disease/condition?: exacerbated by Evaluation data The following diagnostics were reviewed and interpreted by me:: lab results and radiology exam(s) Lab and/or radiology exams considered but not ordered:: none Interpretation Summary: see results in mdm Medications / Prescriptions Medications or Prescriptions considered but not ordered:: None Medication administrations:: None Consultations Consultation(s) initiated? (list below): No Diagnosis Urogenital Male Differential Diagnosis: urinary tract infection and acute retention of urine Most likely diagnosis given after review of the tests above:: Acute urinary retention, BPH Admission Indicated Admission indicated?: not indicated Admission Request Was there a request for admission?: No Disposition Plan Disposition Plan: Discharge Discharge Attestation Discharge Attestation: The patient was given an opportunity to ask questions and understood the discharge instructions. Discharge instructions specifically effects, indications for sooner follow up or return to the emergency department, and the expected course of current diagnosis. Patient condition: Stable Discharge Plan Plan Patient Disposition: HOME (Self Care) Disposition Comment: Stable Prescriptions/Referrals Prescriptions/Med Rec: No Action finasteride 5 mg tablet 5 mg PO QDAY fluconazole 200 MG tablet 400 mg PO HS Qty: 0 Patient Comments: patient does not now medications amlodipine [Norvasc] 10 MG tablet 10 mg PO QDAY Qty: 0 Patient Comments: patient does not now medications Multi-Day with Iron 18-400 mg-mcg Tablet 1 tab PO QDAY Patient Comments: patient does not now medications omega 0-zvo-qqf-fish oil 500-100 mg Capsule 1 cap PO QDAY Patient Comments: patient does not now medications tamsulosin 0.4 mg Capsule 0.4 mg PO QDAY psyllium husk [Daily Fiber] 0.52 gram Capsule 0.52 g PO QDAY ondansetron HCl 4 mg Tablet 4 mg PO Q6H PRN (Reason: Nausea) tramadol 50 mg Tablet 50 mg PO Q8H PRN (Reason: Pain) acetaminophen 650 mg Tablet Extended Release 650 mg PO Q8H PRN (Reason: Pain) bisacodyl [Dulcolax (bisacodyl)] 10 mg Suppository 10 mg NC QDAY PRN (Reason: Constipation) Eliquis 2.5 mg Tablet 2.5 mg PO BID Qty: 28 0RF Janumet 50-1,000 mg tablet 1,000 tab PO BID Patient Comments: TAKE 1 TABLET BY MOUTH TWICE A DAY WITH A MEAL sodium polystyrene (sorb free) 15 gram/60 mL Suspension 15 g PO HS ascorbic acid (vitamin C) [Vitamin C] 500 mg Tablet 500 mg PO BID sertraline 25 mg Tablet 25 mg PO QDAY hydrocodone-acetaminophen 5-325 mg tablet 1 tab PO Q6H MDD 4 PRN (Reason: pain) Qty: 30 0RF cefuroxime axetil 500 mg tablet 500 mg PO BID Qty: 14 0RF Referrals: Nerissa Pavon, GRAIN DISTRIBUTOR [Primary Care Provider] - In 1 week Problem List Clinical Impression: Acute urinary retention, Benign prostatic hyperplasia (BPH) with straining on urination Patient/Caregiver Discharge Instructions Discharge Activity: activity as tolerated Education Materials: ED Urinary Retention, Male Additional Instructions: Thank you for the opportunity for serving you today. You are stable for discharged . You are advised to: Follow-up with your PCP in 1 to 2 days Return to ED for worsening of symptoms Increase oral fluids Print Language: Portuguese Stand Alone Forms: Alina Award Info., Patient Portal Info Letter
[2024-08-22 12:03] VITALS: BP 122/81; PULSE 95; RESP 18; TEMP 36.7; O2SAT 99
[2024-08-22 13:29] LABS: Collection Type, Urine Clean Catch; Squamous Epithelial Cell,Urine 0 /hpf (0-5)
[2024-08-22 13:32] LABS: Bilirubin,Urine Negative (Negative); Blood,Urine Negative (Negative); Clarity,Urine Clear (Clear/Hazy); Color,Urine Lt-Yellow (Lt Yel-Yel); Culture Indicated,Urine Not Indicated; Glucose, Urine Negative (Negative); Ketones,Urine Negative (Negative); Leukocyte Esterase,Urine Positive (Negative); Nitrite,Urine Negative (Negative); Protein,Urine 1+ (Neg - Trace); RBC,Urine 2 /hpf (0-3); Specific Gravity,Urine 1.017 (1.001-1.035); Urobilinogen,Urine Negative mg/dL (0.0-1.0); WBC,Urine 6 /hpf (0-5)
--- NOTE | 2024-08-22 15:53 | PC.CC ---
Alycia HOLLIDAY was consulted by ERNESTO Khan regarding transportation for the patient back home. The patient reports he has no one to pick him up. ASW arranged transportation for patient via [employer].
== END 2024-08-22 15:45 | disposition home or self-care (01) ==
PROVIDERS: Nurse Practitioner Family; Emergency Provider Emergency Medicine; PCP Nurse Practitioner Family
DX: N40.1 Benign prostatic hyperplasia with lower urinary tract symptoms (principal); R33.8 Other retention of urine; R39.16 Straining to void
CPT/HCPCS: 51702; 81001; 99283

== ENCOUNTER → 2024-09-22 | Outpatient (CLI) | payer MEDICARE, MEDICAID, SELFPAY ==
[2024-09-22 16:47] LABS: Anion Gap 8 (7-16); BUN/Creatinine Ratio 22 Ratio (12-20); Blood Urea Nitrogen 55 mg/dL (9-23); Calcium 9.5 mg/dL (8.3-10.6); Carbon Dioxide 15.5 mMol/L (20.0-31.0); Chloride 114 mMol/L (98-107); Creatinine (Component) 2.5 mg/dL (0.6-1.3); Glucose 128 mg/dL (74-106); Osmolality,Calculated 290 (275-295); Potassium 5.6 mMol/L (3.4-5.1); Sodium 137 mMol/L (136-145); eGFR 26 See Note
[2024-09-22 16:51] LABS: Vitamin B12 376 pg/mL (211-911)
[2024-09-22 16:54] LABS: Iron 57 mcg/dL (65-175)
== END | disposition home or self-care (01) ==
PROVIDERS: PCP Family Medicine; Referring Provider Nurse Practitioner Family; Visit Provider Nurse Practitioner Family
DX: N18.30 Chronic kidney disease, stage 3 unspecified (principal); R19.7 Diarrhea, unspecified; D63.1 Anemia in chronic kidney disease
CPT/HCPCS: 36415; 80048; 82607; 83540

== ENCOUNTER → 2024-10-15 | Outpatient (CLI) | payer MEDICARE, MEDICAID, SELFPAY ==
[2024-10-15 15:25] LABS: Anion Gap 10 (7-16); BUN/Creatinine Ratio 20 Ratio (12-20); Blood Urea Nitrogen 41 mg/dL (9-23); Calcium 8.4 mg/dL (8.3-10.6); Chloride 116 mMol/L (98-107); Creatinine (Component) 2.1 mg/dL (0.6-1.3); Glucose 158 mg/dL (74-106); Osmolality,Calculated 294 (275-295); Potassium 4.9 mMol/L (3.4-5.1); Sodium 141 mMol/L (136-145); eGFR 32 See Note
[2024-10-15 15:47] LABS: Carbon Dioxide 14.7 mMol/L (20.0-31.0)
== END | disposition home or self-care (01) ==
PROVIDERS: PCP Family Medicine; Referring Provider Nurse Practitioner Family; Visit Provider Nurse Practitioner Family
DX: E87.6 Hypokalemia (principal); N18.30 Chronic kidney disease, stage 3 unspecified; R19.7 Diarrhea, unspecified
CPT/HCPCS: 36415; 80048

== ENCOUNTER 2024-10-16 17:15 | Inpatient (IN) | payer MEDICARE, MEDICAID, SELFPAY ==
[2024-10-16 17:16] VITALS: BMI 20.3
[2024-10-16 17:36] VITALS: BP 118/78; PULSE 96; RESP 18; TEMP 36.6; O2SAT 96
--- NOTE | 2024-10-16 17:40 | XR_ITS ---
Examination: AP lateral chest 2 views TECHNIQUE: Upright AP and lateral chest 2 views Date and time: October 16, 2024 1921 hours Comparison December 31, 2023 INDICATIONS: Coughing beginning 4 days ago. FINDINGS: Normal heart size Right ventriculoperitoneal shunt tube Minimal accentuation of basilar bronchovascular markings. No lobar pneumonia Moderate thoracic spondylosis IMPRESSION: Mild basilar bronchitis pattern
--- NOTE | 2024-10-16 17:40 | EDRME_ITS ---
Rapid Medical Screening Exam [facility] Arrival date/time: 10/16/24 17:15 74-year-old male with a history of hypertension, type 2 diabetes presents to the emergency room with a chief complaint of generalized weakness and diarrhea x 2 months. Patient was sent over by his primary care provider due to hypotension. I have greeted and performed a focused initial assessment of this patient. A comprehensive ED assessment and evaluation of the patient, analysis of all test results, and completion of the medical decision making process will be conducted by additional ED providers. Chief Complaint: Nausea/Vomiting/Diarrhea Time Seen by Provider: 10/16/24 17:32 Vital signs: Vital Signs Temperature 98 F 10/16/24 17:36 Pulse Rate 96 10/16/24 17:36 Respiratory Rate 18 10/16/24 17:36 Blood Pressure 118/78 10/16/24 17:36 Pulse Oximetry (%) 96 10/16/24 17:36 Oxygen Delivery Method Room Air 10/16/24 17:36 Vital signs reviewed by provider: Yes
[2024-10-16 18:05] LABS: Lactate (Lactic Acid) 3.3 mMol/L (0.4-2.0)
[2024-10-16 18:05] LABS: Collection Type, Urine Clean Catch
[2024-10-16 18:08] LABS: Basophils % (Auto) 0 % (0-2.5); Eosinophils # (Auto) 0.1 Thou/mm3 (0.0-0.5); Eosinophils % (Auto) 1 % (0-10); Hematocrit 33.1 % (41.0-53.0); Hemoglobin 11.2 g/dL (13.5-16.0); Immature Granulocytes % (Auto) 0 % (0-0); Immature Granulocytes Auto 0.03 Thou/mm3 (0.00-0.00); Lymphocytes # (Auto) 1.5 Thou/mm3 (1.0-4.8); Lymphocytes % (Auto) 16 % (10-50); Mean Corpuscular HGB Conc 33.8 g/dl (31.0-37.0); Mean Corpuscular Hemoglobin 31.8 pg (25.0-35.0); Mean Corpuscular Volume 94 fL (80-100); Monocytes # (Auto) 0.7 Thou/mm3 (0.0-0.8); Monocytes % (Auto) 7 % (0-12); Neutrophils # (Auto) 7.3 Thou/mm3 (1.8-7.7); Neutrophils % (Auto) 76 % (37-80); Nucleated Red Blood Cell % 0 /100 WBC (0); Platelet Count 249 Thou/mm3 (140-440); RDW Standard Deviation 50.8 fL (35.1-43.9); Red Blood Count 3.52 Miln/mm3 (4.50-5.90); White Blood Count 9.6 Thou/mm3 (3.8-10.6)
[2024-10-16 18:16] LABS: Bacteria,Urine 4+; Bilirubin,Urine Negative (Negative); Blood,Urine 3+ (Negative); Color,Urine Orange (Lt Yel-Yel); Glucose, Urine 1+ (Negative); Ketones,Urine Negative (Negative); Leukocyte Esterase,Urine Positive (Negative); Nitrite,Urine Positive (Negative); Protein,Urine 2+ (Neg - Trace); RBC,Urine 184 /hpf (0-3); Specific Gravity,Urine 1.016 (1.001-1.035); Squamous Epithelial Cell,Urine 2 /hpf (0-5); Urobilinogen,Urine Negative mg/dL (0.0-1.0); WBC,Urine 2971 /hpf (0-5)
--- NOTE | 2024-10-16 18:34 | PD.EDNV ---
Nausea/Vomit./Diarrhea-RME/HPI General Chief complaint: Nausea/Vomiting/Diarrhea Stated complaint: DIARRHEA X2MO Time Seen by Provider: 10/16/24 17:32 Arrival date/time: 10/16/24 17:15 RME / HPI RME / HPI Narrative: 10/16/24 17:15 74-year-old male with a history of hypertension, type 2 diabetes presents to the emergency room with a chief complaint of generalized weakness and diarrhea x 2 months. Patient was sent over by his primary care provider due to hypotension. I have greeted and performed a focused initial assessment of this patient. A comprehensive ED assessment and evaluation of the patient, analysis of all test results, and completion of the medical decision making process will be conducted by additional ED providers. This section includes all my notes and documentations, including HPI, PE, and ED course. Ricardo Lea MD HPI: 74yo male with a history of BPH, DM, HTN presents with couple week history of diarrhea and severe malaise and fatigue. Was seen at his PCP's office yesterday, reporting he received a call today and was told to come in to the ED. Patient reports losing 60 pounds in the last 3-4 months, with severely decreased appetite. Patient denies any N/V, abdominal pain, fever, chills or chest pain. No other complaints reported. ROS: All negative except as documented in HPI. General:? Alert and oriented.? Appearance of malaise noted. Eyes:? Conjunctivae and lids clear.? EOMI.? PERRL. ENT:? No nasal congestion.? Neck:? Supple.? Heart:? RRR.? Lungs:? No respiratory distress.? Good air movement.? No rhonchi, wheezing, rales.?? Abdomen:? Soft and nontender.? Normal bowel sounds.? No distension.? No rebound or guarding.?? Back:? No CVA tenderness.?? Legs:? No clubbing, cyanosis, edema.? Skin:? Warm and dry.?? Neuro:? Alert and oriented X 3.? Cranial Nerves II-XII grossly intact.? No peripheral motor deficits. I reviewed all diagnostic test results. My interpretation of the EKG is sinus rhythm with inferior lead ST elevations and first degree AV block. My interpretation of the chest x-ray is increased markings. My review of the CT head and chest/abdomen/pelvis reports are no acute findings. Blood tests remarkable for CO2 14.8, Cr 2.2, LA 3.3, negative troponin. UA showed positive nitrite, positive leukocyte Estrace, 184 RBC, 2971 WBC, and 4+ bacteria. COVID/influenza negative. At this point, diagnoses include: Asthenia Weight loss UTI Abnormal EKG Diarrhea Elevated lactic acid Treatment here included Rocephin, NS, and Zofran. Significant improvement not noted. I discussed the case with our mergers and acquisitions manager, Dr. Browning, who recommends admitting the patient. I discussed the case with our hospitalist. About the presentation and exam and diagnostics and treatments here. And need of further care in the hospital. Will accept the patient. Ricardo Lea MD Related Data Home Medications ?Medication ?Instructions ?Recorded ?Confirmed fluconazole 200 mg tablet 400 mg PO HS ##0 09/18/12 06/05/24 amlodipine 10 mg tablet (Norvasc) 10 mg PO QDAY #0 tabs 09/10/13 06/05/24 multivitamin-ferrous 1 tab PO QDAY 04/09/18 06/05/24 fumarate-folic acid 18 mg-400 mcg tablet (Multi-Day with Iron) omega 3-dha 500 mg-epa 100 mg-fish 1 cap PO QDAY 04/09/18 06/05/24 oil capsule psyllium husk 0.52 gram capsule 0.52 g PO QDAY 07/05/18 06/05/24 (Daily Fiber) tamsulosin 0.4 mg capsule 0.4 mg PO QDAY 07/05/18 06/05/24 finasteride 5 mg tablet 5 mg PO QDAY 11/19/18 06/05/24 acetaminophen 650 mg 650 mg PO Q8H PRN Pain 01/16/24 06/05/24 tablet,extended release bisacodyl 10 mg rectal suppository 10 mg [place] QDAY PRN Constipation 01/16/24 06/05/24 (Dulcolax (bisacodyl)) ondansetron HCl 4 mg tablet 4 mg PO Q6H PRN Nausea 01/16/24 06/05/24 tramadol 50 mg tablet 50 mg PO Q8H PRN Pain 01/16/24 06/05/24 sitagliptin phosphate 50 1,000 tab PO BID 04/29/24 06/05/24 mg-metformin 1,000 mg tablet (Janumet) ascorbic acid (vitamin C) 500 mg 500 mg PO BID 06/05/24 06/05/24 tablet (Vitamin C) sertraline 25 mg tablet 25 mg PO QDAY 06/05/24 06/05/24 sodium polystyrene sulfonate 15 15 g PO HS 06/05/24 06/05/24 gram/60 mL oral suspension Previous Rx's ?Medication ?Instructions ?Recorded apixaban 2.5 mg tablet (Eliquis) 2.5 mg PO BID #28 tabs 01/03/24 Held on 06/06/24. Instructions: Resume on 06/09/24. cefuroxime axetil 500 mg tablet 500 mg PO BID #14 tabs 06/06/24 hydrocodone 5 mg-acetaminophen 325 1 tab PO Q6H PRN pain #30 tabs 06/06/24 mg tablet Allergies Allergy/AdvReac Type Severity Reaction Status Date / Time No Known Allergies Allergy Verified 10/16/24 17:17 Review of Systems Review of Systems Systems Reviewed: All systems reviewed, normal except as documented Past Medical History Past Medical History NEUROLOGIC: Positive Neurological Disorders (metabolic encephalopaty), Cerebrovascular Accident (no residual deficits), Transient Ischemic Attacks (TIA), Meningitis, Head Trauma and Spinal Cord Injury; Negative Seizures or Amyotrophic Lateral Sclerosis (ALS/Demi Gehrig's) CARDIAC: Positive Cardiac Disorders, Peripheral Vascular Disease, Hypercholesterolemia and Hypertension; Negative Congestive Heart Failure RESPIRATORY: Positive Sleep Apnea; Negative Chronic Obstructive Pulmonary Disease (COPD) GASTROINTESTINAL: Positive Gastrointestinal Disorders, Gastroesophageal Reflux Disease and Obesity; Negative Hepatitis or Colorectal Cancer GENITOURINARY: Positive Genitourinary Disorders (urinary retention, pyelonephritis), Kidney Stones and Benign Prostatic Hyperplasia; Negative Renal Disease or Prostate Cancer REPRODUCTIVE: Negative Testicular Cancer MUSCULOSKELETAL: Positive Musculoskeletal Disorders, Arthritis, Degenerative Disk Disease and Fractures; Negative Bone Cancer ENT: Positive Deafness ([place]) and Head Trauma ENDOCRINE: Positive Endocrine Disorders and Diabetes Mellitus Type 2; Negative Diabetes Mellitus Type 1 HEMATOLOGIC: Negative Blood Disorders OTHER HISTORY: Positive Hospitalization, Falls, Chicken Pox, Measles, Mumps and Rubella ([place]est[place] Measles); Negative Autoimmune Disease, Shingles, Blood Transfusions, Blood Transfusion Reaction, Anesthesia Reactions, Organ Transplant, Chemotherapy, Radiation Therapy, Cancer, Colorectal Cancer, Lung Cancer, Prostate Cancer or Testicular Cancer Family History FAMILY HISTORY: Positive Family Cardiac Disorders, Family Cancer and Family Surgery; Negative Family Psychiatric Problems, Family Respiratory Disorders, Family Gastrointestinal Problems or Family Anesthesia Reaction Surgical History SURGICAL: Positive Angiogram, Joint Replacement and Brain Shunt; Negative Cardiac Surgery, Ear Surgery, Abdominal Surgery, Vasectomy or Organ Transplant Social History SMOKING STATUS: Never smoker ED Exam Narrative Physical exam: As noted in HPI. Course Quality Measures none Orders Category Date Time Status Bedside COVID-19 Antigen Test NOW Care 10/16/24 19:58 Active Bedside Influenza A&B Antigen Test NOW Care 10/16/24 19:58 Completed COVID-19 Screening Questionnaire NOW Care 10/16/24 21:30 Active Decision to Admit X1 Care 10/16/24 21:30 Active EKG (ED ONLY) *Do not use* NOW Care 10/16/24 18:36 Completed Saline [Insert IV] NOW Care 10/16/24 19:58 Active Consult to Cardiology Stat Cons 10/16/24 21:[address] chest abdomen pelvis wo Stat Exams 10/16/24 18:[address] head/brain wo con Stat Exams 10/16/24 18:36 Completed EKG (ED Only) Stat Exams 10/16/24 18:36 Ordered XR chest 2V Stat Exams 10/16/24 17:40 Completed Amylase Stat Lab 10/16/24 17:50 Completed Bilirubin,Direct Stat Lab 10/16/24 17:50 Completed Blood Culture (Lab) Stat Lab 10/16/24 17:50 Received C-Reactive Protein Stat Lab 10/16/24 17:50 Completed CBC Stat Lab 10/16/24 17:50 Completed CMP [Comprehensive Metabolic Panel] Stat Lab 10/16/24 17:50 Completed Free T4 (Free Thyroxine) Stat Lab 10/16/24 17:50 Completed Lactate (Lactic Acid) Stat Lab 10/16/24 17:50 Completed Lactic Acid, 3 HR Stat Lab 10/16/24 21:02 Ordered Lipase Stat Lab 10/16/24 17:50 Completed Magnesium Stat Lab 10/16/24 17:50 Completed Procalcitonin Stat Lab 10/16/24 17:50 Completed Sed Rate (ESR) Stat Lab 10/16/24 17:50 Completed Thyroid Stimulating Hormone Stat Lab 10/16/24 17:50 Completed Troponin I Stat Lab 10/16/24 17:50 Completed UA [Urinalysis] Stat Lab 10/16/24 17:56 Completed Urine Culture Stat Lab 10/16/24 17:40 Received Ondansetron Inj [Zofran Inj] Med 10/16/24 19:59 Discontinued 4 mg IV X1 ONE Sodium Chloride 0.9% 1000 ml [Ns] 1,000 ml Med 10/16/24 19:59 Discontinued IV 999 mls/hr cefTRIAXone/D5w 1gm IV premix [Rocephin/D5w 1gm IV Med 10/16/24 19:59 Discontinued premix] 1 gm in 50 ml IV X1 Vital Signs Vital signs: Vital Signs Temperature 98 F 10/16/24 17:36 Pulse Rate 96 10/16/24 17:36 Respiratory Rate 18 10/16/24 17:36 Blood Pressure 118/78 10/16/24 17:36 Pulse Oximetry (%) 96 10/16/24 17:36 Oxygen Delivery Method Room Air 10/16/24 17:36 Nausea/Vomiting/Diarrhea MDM Narrative MDM Narrative:: Scribe Attestation: 10/16/24 - Berta Rocha am scribing for and in the presence of Dr. Lea. 74yo male with a history of BPH, DM, HTN presents to the ED for a chief complaint of diarrhea. Patient states he's had diarrhea for the last 3 weeks. Patient states he had labs done at his PCP's office yesterday, reporting he received a call today and was told to come in to the ED. Patient reports losing 60 pounds in the last 3-4 months, as well as a decreased appetite. Patient denies any N/V, abdominal pain, fever, chills or any other associated symptoms. No other complaints reported. Patient data External records reviewed:: [facility] previous records (Per chart review, patient was seen here on 08/22/24 for acute urinary retention.) Clinical information provided by:: patient Social determinants that could affect healthcare access:: none Patient has the following chronic illnesses:: BPH, DM, HTN How is presenting disease/condition affected by chronic disease/condition?: uneffected by Evaluation data The following diagnostics were reviewed and interpreted by me:: lab results, radiology exam(s) and EKG tracing(s) (My interpretation of the EKG is: Sinus rhythm (86 bpm) with first-degree block and nonspecific ST-T changes. No STEMI, no reciprocal changes. Ricardo Lea MD) Lab and/or radiology exams considered but not ordered:: none Interpretation Summary: I reviewed all diagnostic test results. My interpretation of the EKG is sinus rhythm with inferior lead ST elevations and first degree AV block. My interpretation of the chest x-ray is increased markings. My review of the CT head and chest/abdomen/pelvis reports are no acute findings. Blood tests remarkable for CO2 14.8, Cr 2.2, LA 3.3, negative troponin. UA showed positive nitrite, positive leukocyte Estrace, 184 RBC, 2971 WBC, and 4+ bacteria. COVID/influenza negative. Medications / Prescriptions Medications / Prescriptions considered but not ordered:: none Medication administrations:: Medication Administration History Discontinued Medications Ceftriaxone Sodium/Dextrose (Rocephin/D5w 1gm Iv Premix) 1 gm in 50 mls @ 100 mls/hr IV X1 ONE Stop: 10/16/24 20:28 Last Admin: 10/16/24 20:22 Dose: 100 mls/hr Documented By: EF Sodium Chloride (Ns) 1,000 mls @ 999 mls/hr IV .Q1H1M ONE Stop: 10/16/24 20:59 Last Admin: 10/16/24 20:23 Dose: 999 mls/hr Documented By: EF Ondansetron HCl (Ondansetron Inj 2 Mg/Ml Inj 2 Ml) 4 mg IV X1 ONE; Protocol Stop: 10/16/24 20:00 Last Admin: 10/16/24 20:22 Dose: 4 mg Documented By: EF Rocephin, NS, Zofran Consultations Consultation(s) initiated? (list below): Yes Consultation #1 (Physician, Specialty, Details): Discussed case with Dr. Browning from cardiology regarding consultation. Discussed patients ED course, exam findings, labs, and radiology results. Recommends admitting the patient. Diagnosis Nausea Differential Diagnosis: traveler's diarrhea, food poisoning, gastroenteritis, clostridium difficile infection, drug-induced nausea and vomiting, dehydration and other (CVA, brain tumor, HI, cancer, UTI, pneumonia, sepsis) Most likely diagnosis given after review of the tests above:: Asthenia Weight loss UTI Abnormal EKG Diarrhea Elevated lactic acid Admission Indicated Admission indicated?: indicated Explain why admission is indicated or not indicated:: Asthenia Weight loss UTI Abnormal EKG Diarrhea Elevated lactic acid Admission Request Was there a request for admission?: Yes Admission Attestation Admission request attestation: Discussed case with Hospitalist service regarding admission. Discussed patients ED course, exam findings, labs, and radiology results. The Hospitalist agrees to accept the patient for admission. Disposition Plan Disposition Plan: Admit Discharge Plan Plan Patient Disposition: Admit Acute Care w/in Hospital Prescriptions/Referrals Prescriptions/Med Rec: No Action finasteride 5 mg tablet 5 mg PO QDAY fluconazole 200 MG tablet 400 mg PO HS Qty: 0 Patient Comments: patient does not now medications amlodipine [Norvasc] 10 MG tablet 10 mg PO QDAY Qty: 0 Patient Comments: patient does not now medications Multi-Day with Iron 18-400 mg-mcg Tablet 1 tab PO QDAY Patient Comments: patient does not now medications omega 7-oem-eln-fish oil 500-100 mg Capsule 1 cap PO QDAY Patient Comments: patient does not now medications tamsulosin 0.4 mg Capsule 0.4 mg PO QDAY psyllium husk [Daily Fiber] 0.52 gram Capsule 0.52 g PO QDAY ondansetron HCl 4 mg Tablet 4 mg PO Q6H PRN (Reason: Nausea) tramadol 50 mg Tablet 50 mg PO Q8H PRN (Reason: Pain) acetaminophen 650 mg Tablet Extended Release 650 mg PO Q8H PRN (Reason: Pain) bisacodyl [Dulcolax (bisacodyl)] 10 mg Suppository 10 mg [place] QDAY PRN (Reason: Constipation) Eliquis 2.5 mg Tablet 2.5 mg PO BID Qty: 28 0RF Janumet 50-1,000 mg tablet 1,000 tab PO BID Patient Comments: TAKE 1 TABLET BY MOUTH TWICE A DAY WITH A MEAL sodium polystyrene (sorb free) 15 gram/60 mL Suspension 15 g PO HS ascorbic acid (vitamin C) [Vitamin C] 500 mg Tablet 500 mg PO BID sertraline 25 mg Tablet 25 mg PO QDAY hydrocodone-acetaminophen 5-325 mg tablet 1 tab PO Q6H MDD 4 PRN (Reason: pain) Qty: 30 0RF cefuroxime axetil 500 mg tablet 500 mg PO BID Qty: 14 0RF Referrals: Nerissa Pavon NP [Primary Care Provider] - In 1 week Problem List Clinical Impression: Asthenia, Weight loss, UTI (urinary tract infection), Diarrhea, Elevated lactic acid level, Inferior ST segment elevation Patient/Caregiver Discharge Instructions Print Language: Malaysian Stand Alone Forms: [facility] Award Info., Patient Portal Info Letter
--- NOTE | 2024-10-16 18:36 | XR_ITS ---
Examination: CT chest, without intravenous contrast. CT abdomen, without intravenous contrast. CT pelvis, without intravenous contrast. 2-D sagittal and coronal reconstructions. 3-D reconstructions. Date and time of exam:October 16, 2024 1858 hours INDICATIONS: Shortness of the diarrhea weight loss today, history left pyelonephritis left ureteral stent CTDI vol (mgy) 5.45 DLP (MGycm)420 Technique: Multiple CT images, 3.0 mm slice thickness, obtained chest, abdomen, pelvis, with the high-resolution 64 slice scanner.. Sagittal and coronal 2-D reconstructions are obtained. 3-D reconstructions Low dose protocols were performed. One or more of the following dose reduction techniques were used; automated exposure control, adjustment of the mA and/or KV according to patient size, use of iterative reconstruction technique. Findings: AP dimension ascending thoracic aorta 4.5 cm Pulmonary artery segments are not enlarged Heavy calcification left anterior descending coronary artery No pneumonia or pulmonary edema No visualized liver or splenic lesion Gallbladder is distended No pancreatic mass Nodular thickening left adrenal gland Again noted right parapelvic cyst The patient's left ureteral stent is no longer identified Prominent left hydronephrosis with prominent renal cortical thinning No ureteral calculi Marked thickening of the urinary bladder wall Moderate prostatomegaly Prominent osteopenia Chronic osteoporotic compression L1 Advanced degenerative disc disease L2-L3 IMPRESSION: Aneurysmal dilatation ascending thoracic aorta No pneumonia or pulmonary edema or pleural disease Significant left hydronephrosis, the patient's left ureteral stent is no longer identified Marked thickening of the urinary bladder wall, consider cystitis and vesicoureteral reflux
--- NOTE | 2024-10-16 18:36 | XR_ITS ---
Examination: CT brain head without contrast. 2-D sagittal coronal reconstructions Date and time of exam:October 16, 2024 1857 hours INDICATIONS: Weakness and weight loss, altered mental status today CTDI: vol (mGy):45 DLP: (mGycm):944 Technique: Multiple CT axial sections of the brain have been obtained, 5 mm slice thickness. Contrast has not been administered. 2-D sagittal, coronal reconstructions have been obtained Low dose protocols were performed. One or more of the following dose reduction techniques were used; automated exposure control, adjustment of the mA and/or KV according to patient size, use of iterative reconstruction technique. Findings: No significant ventricular enlargement. 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 No mass effect or midline shift Basal cisterns are not remarkable. Fourth ventricle is midline. Cranial vault intact. 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
[2024-10-16 18:47] LABS: Alanine Aminotransferase 30 U/L (10-49); Albumin, Serum 3.7 gm/dL (3.4-4.8); Albumin/Globulin Ratio 1.3 (1.2-2.2); Alkaline Phosphatase 118 U/L (46-116); Anion Gap 13 (7-16); Aspartate Amino Transferase 11 U/L (0-34); BUN/Creatinine Ratio 17 Ratio (12-20); Bilirubin,Total < 0.2 mg/dL (0.3-1.2); Blood Urea Nitrogen 38 mg/dL (9-23); Calcium 8.6 mg/dL (8.3-10.6); Calcium (Corrected) 8.8 mg/dL (8.5-10.1); Chloride 116 mMol/L (98-107); Creatinine (Component) 2.2 mg/dL (0.6-1.3); Estimated Creatinine Clearance 27.9 mL/min (>60); Globulin 2.9 gm/dL (2.3-3.5); Glucose 216 mg/dL (74-106); Osmolality,Calculated 302 (275-295); Potassium 5.2 mMol/L (3.4-5.1); Procalcitonin 0.11 ng/ml (0.0-0.49); Sodium 144 mMol/L (136-145); Total Protein 6.6 gm/dL (5.7-8.2); eGFR 30 See Note
[2024-10-16 18:59] LABS: Carbon Dioxide 14.8 mMol/L (20.0-31.0)
[2024-10-16 19:04] LABS: Sed Rate (ESR) 25 mm/hr (0-20)
[2024-10-16 19:17] LABS: Amylase 96 U/L (30-118); Bilirubin,Direct < 0.1 mg/dL (0.0-0.3); C-Reactive Protein < 0.5 mg/dL (0.0-0.9); Free T4 (Free Thyroxine) 0.99 ng/dL (0.89-1.76); Lipase 50 U/L (12-53); Magnesium 1.9 mg/dL (1.6-2.6); Thyroid Stimulating Hormone 0.38 uIU/mL (0.55-4.78); Troponin I < 0.020 ng/mL (0.0-0.045)
[2024-10-16 19:49] LABS: Clarity,Urine Turbid (Clear/Hazy)
[2024-10-16 20:01] VITALS: BP 121/80; PULSE 97; RESP 16; TEMP 36.4; O2SAT 100
[2024-10-16] MEDS: ONDANSETRON INJ 2 MG/ML INJ 2 ML 4 MG IV (20:22)
[2024-10-16] MEDS: cefTRIAXone/D5w 1gm IV premix 1 GM/50 ML BAG IV (20:22)
[2024-10-16] MEDS: SODIUM CHLORIDE 0.9% 1000 ML 1,000 ML 999 ML IV (20:23)
[2024-10-16 21:02] LABS: Reflex Lactate? Y
[2024-10-16 21:45] LABS: Lactic Acid, 3 HR 1.4 mMol/L (0.4-2.0)
--- NOTE | 2024-10-16 22:20 | PD.RESHP ---
Documentation for date of: 10/16/24 HPI History of Present Illness History of present illness: The patient is a 74-year-old male with a past medical history of diabetes mellitus, hypertension, valley fever, aortic aneurysm, kidney stones and left hydronephrosis who was directed to go to the emergency room from his physician's office after urinalysis showed evidence of UTI. Patient stated that he follows with Dr. Laws who had placed a ureteral stent in June for kidney stones, which was removed 2 weeks later. Patient also reported chronic diarrhea for the past 2 months, patient has had treatment for recurrent UTIs with multiple antibiotics over the course of last year, most recent urine culture grew ESBL, and he was prescribed p.o. antibiotics, patient reported improvement in his symptoms, but is now concerned due to diarrhea and recurrent UTI. Patient has loose watery stools 1-3 times a day over the past 2 months, denied melena or hematochezia. Patient denied having any chest pain shortness of breath, fever or cough. In the ER initial labs concerning for mild anemia on CBC, lactic acidosis, hypokalemia, chronic kidney disease, creatinine seems closer to baseline, urinalysis shows evidence of UTI. Initial EKG in the ER was reported as first-degree AV block and sinus rhythm, ER spoke to pediatric lpn Dr. Browning, who recommended against any invasive coronary procedures at this time, as no evidence of STEMI or reciprocal changes on EKG. 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 Also noted aortic aneurysm, patient last followed up with pediatric lpn 3 years ago, reported workup was normal. Patient reported he was prescribed Eliquis briefly, but has not been taking it for the past few months, unsure of the indication. No A-fib on EKG. Past surgical history: Multiple joint replacement surgeries Social history: Denies smoking Review of Systems Review of Systems Systems Reviewed: All systems reviewed, normal except as documented Past Medical History Past Medical History NEUROLOGIC: Positive Neurological Disorders, Cerebrovascular Accident, Transient Ischemic Attacks (TIA), Meningitis, Head Trauma and Spinal Cord Injury; Negative Seizures or Amyotrophic Lateral Sclerosis (ALS/Demi Gehrig's) CARDIAC: Positive Cardiac Disorders, Peripheral Vascular Disease, Hypercholesterolemia and Hypertension; Negative Congestive Heart Failure RESPIRATORY: Positive Sleep Apnea; Negative Chronic Obstructive Pulmonary Disease (COPD) GASTROINTESTINAL: Positive Gastrointestinal Disorders, Gastroesophageal Reflux Disease and Obesity; Negative Hepatitis or Colorectal Cancer GENITOURINARY: Positive Genitourinary Disorders, Kidney Stones and Benign Prostatic Hyperplasia; Negative Renal Disease or Prostate Cancer REPRODUCTIVE: Negative Testicular Cancer MUSCULOSKELETAL: Positive Musculoskeletal Disorders, Arthritis, Degenerative Disk Disease and Fractures; Negative Bone Cancer ENT: Positive Deafness and Head Trauma ENDOCRINE: Positive Endocrine Disorders and Diabetes Mellitus Type 2; Negative Diabetes Mellitus Type 1 HEMATOLOGIC: Negative Blood Disorders OTHER HISTORY: Positive Hospitalization, Falls, Chicken Pox, Measles, Mumps and Rubella ([place] Measles); Negative Autoimmune Disease, Shingles, Blood Transfusions, Blood Transfusion Reaction, Anesthesia Reactions, Organ Transplant, Chemotherapy, Radiation Therapy, Cancer, Colorectal Cancer, Lung Cancer, Prostate Cancer or Testicular Cancer Family History FAMILY HISTORY: Positive Family Cardiac Disorders, Family Cancer and Family Surgery; Negative Family Psychiatric Problems, Family Respiratory Disorders, Family Gastrointestinal Problems or Family Anesthesia Reaction Surgical History SURGICAL: Positive Angiogram, Joint Replacement and Brain Shunt; Negative Cardiac Surgery, Ear Surgery, Abdominal Surgery, Vasectomy or Organ Transplant Social History SMOKING STATUS: Never smoker Exam Vital Signs Temp Pulse Resp BP Pulse Ox O2 Del Method 97.6 F 97 16 121/80 100 Room Air 10/16/24 20:01 10/16/24 20:01 10/16/24 20:01 10/16/24 20:01 10/16/24 20:01 10/16/24 20:01 Narrative Exam General: AOx3, cooperative Skin: Intact, no cyanosis or edema noted. HEENT: Atraumatic/normocephalic, BETTIE, neck supple Heart: RRR, S1 and S2 without clicks or murmurs Lungs: Clear on auscultation bilaterally, no difficulty breathing Abdomen: Soft, nontender. Bowel sounds present . Vascular: Peripheral pulses palpable Neuro: No focal neurological deficits noted. Results: Labs 10/16/24 17:50 10/16/24 17:50 Labs: Short CBC 10/16/24 Range/Units 17:50 WBC 9.6 (3.8-10.6) Thou/mm3 Hgb 11.2 L (13.5-16.0) g/dL Hct 33.1 L (41.0-53.0) % Plt Count 249 (140-440) Thou/mm3 BMP 10/16/24 17:50 Sodium 144 Potassium 5.2 H Chloride 116 H Carbon Dioxide 14.8 L* BUN 38 H Creatinine 2.2 H Glucose 216 H D Calcium 8.6 Cardiac Enzymes 10/16/24 Range/Units 17:50 Troponin I < 0.020 (0.0-0.045) ng/mL Liver Function 10/16/24 Range/Units 17:50 Total Bilirubin < 0.2 L (0.3-1.2) mg/dL Direct Bilirubin < 0.1 (0.0-0.3) mg/dL AST 11 (0-34) U/L ALT 30 (10-49) U/L Alkaline Phosphatase 118 H (46-116) U/L Albumin 3.7 (3.4-4.8) gm/dL Urine 10/16/24 Range/Units 17:56 Urine Color [place] A (Lt Yel-Yel) Urine Clarity Turbid A (Clear/Hazy) Urine pH 6.0 (5.0-7.0) Ur Specific [place] 1.016 (1.001-1.035) Urine Protein 2+ A (Neg - Trace) Urine Glucose (UA) 1+ A (Negative) Quality Measures Quality Measures none Advance care planning discussed with:: patient Medications Home Medications and Allergies Home Medications ?Medication ?Instructions ?Recorded ?Confirmed ?Type fluconazole 200 mg tablet 400 mg PO HS ##0 09/18/12 06/05/24 History amlodipine 10 mg tablet (Norvasc) 10 mg PO QDAY #0 tabs 09/10/13 06/05/24 History multivitamin-ferrous 1 tab PO QDAY 04/09/18 06/05/24 History fumarate-folic acid 18 mg-400 mcg tablet (Multi-Day with Iron) omega 3-dha 500 mg-epa 100 mg-fish 1 cap PO QDAY 04/09/18 06/05/24 History oil capsule psyllium husk 0.52 gram capsule 0.52 g PO QDAY 07/05/18 06/05/24 History (Daily Fiber) tamsulosin 0.4 mg capsule 0.4 mg PO QDAY 07/05/18 06/05/24 History finasteride 5 mg tablet 5 mg PO QDAY 11/19/18 06/05/24 History acetaminophen 650 mg 650 mg PO Q8H PRN Pain 01/16/24 06/05/24 History tablet,extended release bisacodyl 10 mg rectal suppository 10 mg ME QDAY PRN Constipation 01/16/24 06/05/24 History (Dulcolax (bisacodyl)) ondansetron HCl 4 mg tablet 4 mg PO Q6H PRN Nausea 01/16/24 06/05/24 History tramadol 50 mg tablet 50 mg PO Q8H PRN Pain 01/16/24 06/05/24 History sitagliptin phosphate 50 1,000 tab PO BID 04/29/24 06/05/24 History mg-metformin 1,000 mg tablet (Janumet) ascorbic acid (vitamin C) 500 mg 500 mg PO BID 06/05/24 06/05/24 History tablet (Vitamin C) sertraline 25 mg tablet 25 mg PO QDAY 06/05/24 06/05/24 History sodium polystyrene sulfonate 15 15 g PO HS 06/05/24 06/05/24 History gram/60 mL oral suspension Allergies Allergy/AdvReac Type Severity Reaction Status Date / Time No Known Allergies Allergy Verified 10/16/24 17:17 Visit Medications Acetaminophen (Acetaminophen 325 Mg Tablet) 650 mg PO Q6H PRN PRN Reason: PAIN OR FEVER > 101 Stop: 11/15/24 22:14 Hydrocodone Bitart/Acetaminophen (Hydrocodone/Apap 5/325 Tablet) 1 tab PO Q6HR PRN PRN Reason: PAIN Stop: 10/21/24 22:14 Amlodipine Besylate (Amlodipine Besylate 5 Mg Tablet) 10 mg PO QDAY EMELIA Stop: 11/16/24 08:59 Dextrose (Dextrose 50%-Water Inj 50 Ml Syringe) 25 ml IV Q15MIN PRN PRN Reason: BG 50-70 responsive npo pt Stop: 11/15/24 22:14 Dextrose (Dextrose 50%-Water Inj 50 Ml Syringe) 50 ml IV Q15MIN PRN PRN Reason: BG <50 OR BG <70 & pt unresponsive Stop: 11/15/24 22:14 Fluconazole (Fluconazole 100 Mg Tablet) 200 mg PO QDAY EMELIA Stop: 10/24/24 08:59 Glucagon (Glucagon Inj 1 Mg Vial) 1 mg IM Q15MIN PRN PRN Reason: BG <70, and no IV access Doxycycline Hyclate 100 mg/ (Sodium Chloride) 100 mls @ 100 mls/hr IV BID EMELIA Stop: 10/23/24 22:29 Insulin Human Lispro (Insulin Lispro (Admelog) 1 Unit/0.01 Ml Unit) 0 unit SC AC [facility]; Protocol Stop: 11/16/24 07:29 Ondansetron HCl (Ondansetron Inj 2 Mg/Ml Inj 2 Ml) 4 mg IV Q6H PRN; Protocol PRN Reason: NAUSEA OR VOMITING Stop: 11/15/24 22:14 Sennosides (Senna Tablet) 2 tab PO BID PRN; Protocol PRN Reason: CONSTIPATION Stop: 11/15/24 22:14 Tamsulosin HCl (Tamsulosin Hcl 0.4 Mg Capsule) 0.4 mg PO QDAY [facility] Stop: 11/16/24 08:59 Discontinued Medications Ceftriaxone Sodium/Dextrose (Rocephin/D5w 1gm Iv Premix) 1 gm in 50 mls @ 100 mls/hr IV X1 ONE Stop: 10/16/24 20:28 Last Infusion: 10/16/24 20:52 Dose: Infused Sodium Chloride (Ns) 1,000 mls @ 999 mls/hr IV .Q1H1M ONE Stop: 10/16/24 20:59 Last Infusion: 10/16/24 21:24 Dose: Infused Ondansetron HCl (Ondansetron Inj 2 Mg/Ml Inj 2 Ml) 4 mg IV X1 ONE; Protocol Stop: 10/16/24 20:00 Last Admin: 10/16/24 20:22 Dose: 4 mg Assessment & Plan Plan The patient is a 74-year-old male with a past medical history of diabetes mellitus, hypertension, valley fever, aortic aneurysm, kidney stones and left hydronephrosis who was directed to go to the emergency room from his physician's office after urinalysis showed evidence of UTI. # Complicated UTI History of ESBL UTI, history of left hydronephrosis and stent placement which were later removed in June, follows urologist Dr. Rojas. Urinalysis shows UTI. CT abdomen pelvis showed significant left hydronephrosis, thickening of urinary bladder wall, cystitis and VUR. ? Follow urine culture ? IV doxycycline, de-escalate antibiotics following microbiology results, prior culture resistant to cephalosporins, intermediate sensitivity to Zosyn, sensitive to Carbapenem antibiotics, if no resolution in patient's clinical situation consider escalating antibiotics # Lactic acidosis # Normal anion gap metabolic acidosis 3.3, after IV fluid boluses improved to 1.4, normal anion gap metabolic acidosis likely secondary to chronic diarrhea. # JINA/CKD # Hyperkalemia # History of BPH Patient's baseline creatinine seems to be around 2, CKD likely stable, possible prerenal versus postrenal, chronic obstructive uropathy. Patient received IV fluid boluses due to lactic acidosis, currently patient reports adequate urine output. ? Trend serum creatinine daily ? Continue Flomax ? Hyperkalemia cocktail, albuterol nebulization, IV insulin with dextrose, p.o. Kayexalate # Chronic diarrhea # Rule out C. difficile Given history of multiple antibiotic courses for recurrent UTI, chronic diarrhea for the past 2 months, will order isolation precautions and C. difficile studies. ? Follow C. difficile PCR ? Isolation precaution in place, can discontinue once C. difficile ruled out. ? Stool cultures and stool for WBC ordered. # History of diabetes mellitus # History of hypertension ? Sliding scale insulin ? Resume home medication amlodipine Care discussed with attending Dr. Laura Salmon Pgy2 Attending Provider Attestation/Addendum I discussed with and supervised the resident physician who took care of this patient. I agree with the assessment and plan as above. This is a 74-year-old male patient was being admitted for complicated urinary tract infection associated with lactic acidosis and acute kidney injury. The patient reportedly has chronic diarrhea, diabetes mellitus and hypertension.
[2024-10-16 22:52] VITALS: PULSE 74
[2024-10-16] MEDS: ALBUTEROL RT 2.5 MG/0.5 ML NEBU 5 MG INH (22:52)
[2024-10-16] MEDS: SODIUM CHLORIDE RT SOL 0.9% 3 ML NEBU INH (22:52)
[2024-10-16 22:56] VITALS: PULSE 76; RESP 100; RESP 11; RESP 22; O2SAT 100
[2024-10-16 23:11] VITALS: BP 130/89; PULSE 91; RESP 17; TEMP 36.6; O2SAT 100
[2024-10-16] MEDS: DOXYCYCLINE INJ 100 MG in SODIUM CHLORIDE 0.9% (POP) 100 ML IV (23:22)
[2024-10-16] MEDS: INSULIN HUM REGULAR 1 UNIT/0.01 ML (PER UNIT) 5 UNIT IV (23:22)
[2024-10-16] MEDS: SOD POLYSTYRENE SULFON SUSP 15 GM/60 ML BTL PO (23:23)
[2024-10-17] VITALS (10 sets, daily range): BP systolic 99–141; BP diastolic 71–82; PULSE 60–89; RESP 14–99; TEMP 36.1–36.7; O2SAT 96–100; BMI 18.6
[2024-10-17 02:22] LABS: Collection Type, Urine Clean Catch; Squamous Epithelial Cell,Urine 0 /hpf (0-5)
[2024-10-17 02:25] LABS: Lactate (Lactic Acid) 2.2 mMol/L (0.4-2.0)
[2024-10-17 02:48] LABS: Bacteria,Urine 4+; Bilirubin,Urine Negative (Negative); Blood,Urine 2+ (Negative); Color,Urine Yellow (Lt Yel-Yel); Glucose, Urine Trace (Negative); Ketones,Urine Negative (Negative); Leukocyte Esterase,Urine Positive (Negative); Nitrite,Urine Positive (Negative); PH,Urine 5.5 (5.0-7.0); Protein,Urine 1+ (Neg - Trace); RBC,Urine 55 /hpf (0-3); Specific Gravity,Urine 1.015 (1.001-1.035); Urobilinogen,Urine Negative mg/dL (0.0-1.0); WBC,Urine 963 /hpf (0-5)
[2024-10-17 02:50] LABS: Clarity,Urine Turbid (Clear/Hazy)
[2024-10-17 05:20] LABS: Reflex Lactate? Y
[2024-10-17 05:41] LABS: Basophils % (Auto) 0 % (0-2.5); Eosinophils % (Auto) 0 % (0-10); Hematocrit 31.4 % (41.0-53.0); Hemoglobin 10.9 g/dL (13.5-16.0); Immature Granulocytes % (Auto) 1 % (0-0); Immature Granulocytes Auto 0.06 Thou/mm3 (0.00-0.00); Lymphocytes # (Auto) 1.6 Thou/mm3 (1.0-4.8); Lymphocytes % (Auto) 13 % (10-50); Mean Corpuscular HGB Conc 34.7 g/dl (31.0-37.0); Mean Corpuscular Hemoglobin 31.8 pg (25.0-35.0); Mean Corpuscular Volume 92 fL (80-100); Monocytes # (Auto) 0.9 Thou/mm3 (0.0-0.8); Monocytes % (Auto) 8 % (0-12); Neutrophils # (Auto) 9.3 Thou/mm3 (1.8-7.7); Neutrophils % (Auto) 78 % (37-80); Nucleated Red Blood Cell % 0 /100 WBC (0); Platelet Count 239 Thou/mm3 (140-440); RDW Standard Deviation 49.6 fL (35.1-43.9); Red Blood Count 3.43 Miln/mm3 (4.50-5.90); White Blood Count 11.9 Thou/mm3 (3.8-10.6)
[2024-10-17 05:55] LABS: INR 1.1 (0.9-1.3); Prothrombin Time 11.8 Seconds (9.0-12.2)
[2024-10-17 06:10] LABS: Alanine Aminotransferase 28 U/L (10-49); Albumin, Serum 3.7 gm/dL (3.4-4.8); Alkaline Phosphatase 113 U/L (46-116); Anion Gap 11 (7-16); Aspartate Amino Transferase < 10 U/L (0-34); BUN/Creatinine Ratio 19 Ratio (12-20); Bilirubin,Direct < 0.1 mg/dL (0.0-0.3); Bilirubin,Total 0.2 mg/dL (0.3-1.2); Blood Urea Nitrogen 38 mg/dL (9-23); Calcium 8.7 mg/dL (8.3-10.6); Carbon Dioxide 15.6 mMol/L (20.0-31.0); Cardiac Risk Estimate 3.9 RATIO (4.0-6.7); Chloride 119 mMol/L (98-107); Cholesterol 109 mg/dL (132-200); Estimated Creatinine Clearance 28.1 mL/min (>60); Glucose 126 mg/dL (74-106); HDL Cholesterol 28 mg/dL (40-60); LDL Cholesterol,Calculated 60 mg/dL (0-130); Magnesium 1.9 mg/dL (1.6-2.6); Osmolality,Calculated 301 (275-295); Phosphorous 4.1 mg/dL (2.4-5.1); Sodium 146 mMol/L (136-145); Thyroid Stimulating Hormone 0.33 uIU/mL (0.55-4.78); Total Protein 6.6 gm/dL (5.7-8.2); Triglycerides 105 mg/dL (30-150); eGFR 34 See Note
[2024-10-17 06:28] LABS: Glucose Estimated Average 123 mg/dL (80-131); Hemoglobin A1C 5.9 % Hgb (4.8-6.0)
[2024-10-17 07:29] LABS: Lactic Acid, 3 HR 2.3 mMol/L (0.4-2.0)
[2024-10-17] MEDS: amLODIPine BESYLATE 5 MG TABLET 10 MG PO (08:40)
[2024-10-17] MEDS: DOXYCYCLINE INJ 100 MG in SODIUM CHLORIDE 0.9% (POP) 100 ML IV ×2 (08:40→21:11)
[2024-10-17] MEDS: TAMSULOSIN HCL 0.4 MG CAPSULE PO (08:41)
[2024-10-17] MEDS: FLUCONAZOLE 100 MG TABLET 200 MG PO (08:41)
[2024-10-17] MEDS: MEROPENEM INJ 1,000 MG in SODIUM CHLORIDE 0.9% (Popper) 50 ML 100 MG IV ×2 (09:39→20:18)
[2024-10-17] MEDS: SODIUM CHLORIDE 0.9% 1000 ML 500 ML 999 ML IV (09:53)
[2024-10-17] MEDS: RINGERS LACTATED 1000 ML 1,000 ML 125 ML IV (10:07)
[2024-10-17 10:10] LABS: Lactate (Lactic Acid) 1.9 mMol/L (0.4-2.0)
[2024-10-17 10:25] LABS: Stool for WBCs Negative (Negative)
[2024-10-17 10:31] LABS: Albumin, Serum 3.2 gm/dL (3.4-4.8); Anion Gap 9 (7-16); BUN/Creatinine Ratio 18 Ratio (12-20); Blood Urea Nitrogen 35 mg/dL (9-23); Calcium (Corrected) 8.6 mg/dL (8.5-10.1); Carbon Dioxide 15.7 mMol/L (20.0-31.0); Chloride 118 mMol/L (98-107); Creatinine (Component) 1.9 mg/dL (0.6-1.3); Estimated Creatinine Clearance 29.5 mL/min (>60); Glucose 214 mg/dL (74-106); Osmolality,Calculated 298 (275-295); Phosphorous 3.3 mg/dL (2.4-5.1); Potassium 4.8 mMol/L (3.4-5.1); Sodium 143 mMol/L (136-145); eGFR 36 See Note
[2024-10-17] MEDS: INSULIN LISPRO (AdmeLOG) 1 UNIT/0.01 ML UNIT SC (11:31)
--- NOTE | 2024-10-17 12:07 | ESCONSULT_ITS ---
<Statement entered by Garo Browning MD - 10/17/24 19:33> I personally evaluated and examined this patient I have known several years did have a negative workup about 5 years ago came to the hospital gentleman weakness was found to have infection of urinary tract as infection sepsis was slightly abnormal EKG findings and mild ST changes. No reciprocal possibly ME depression no evidence of myocardial infarction troponin levels essentially normal. Will monitor the patient closely if he has significant cardiac issues recommend cardiac workup as outpatient we will continue to observe the patient here while in the hospital make sure no cardiac events HPI Data of Consult Requesting Physician: Leon Zimmerman MD Admitting Provider: Derek Sanchez MD Attending Provider: Leon Zimmerman MD Primary Care Provider: Nerissa Pavon NP Consult Narrative History of present illness: 74 yrs old male with PMH of HTN, valley fever , aortic aneurysm, DM, kidney stones and left hydronephrosis came to ED for UTI sent by his PCP . He has h/o Dr Laws putting ureteral stent in June for kidney stones, which was removed 2 weeks later.most recent urine culture grew ESBL, and he was prescribed p.o. antibiotics, patient reported improvement in his symptoms, but is now concerned due to diarrhea and recurrent UTI. Initial EKG in the ER showed first-degree AV block and sinus rhythm, no evidence of STEMI or reciprocal changes on EKG. as per the patient he saw Dr. Browning years ago and at that time cardiac workup was normal. He also states that last year he had a hip fracture and was admitted in the hospital and they found out about his kidney stone since then he had lost almost 60 pounds. ED vitals: BP?118/78, P?96, RR?18, temperature?98 ED labs : WBC?11.9, hemoglobin?10.9, ESR?25, BUN?35, creatinine?1.9, LDL?60, HDL?28 TSH is the 0.33 UA positive for UTI ED imaging : head Ct -No ventricular enlargement,Mild chronic subdural hygromas with no mass effect, No acute hemorrhage or mass effect . CT abdomen - Aneurysmal dilatation ascending thoracic aorta, No pneumonia or pulmonary edema or pleural diseaseSignificant left hydronephrosis, the patient's left ureteral stent is no longer identified, Marked thickening of the urinary bladder wall, consider cystitis and vesicoureteral reflux PMH- as above PSH: Multiple joint replacement surgeries Allergy: None SH: denies smoking and illicit drugs Allergies NO known allergies cc:: cc: Leon Zimmerman MD Review of Systems Review of Systems Systems Reviewed: All systems reviewed, normal except as documented Narrative Review of Systems: GENERAL: Comfortable adult seen resting comfortably in hospital bed, no acute distress, cachectic looking HEENT: Normocephalic, atraumatic. Pupils are equal and reactive. Oral mucosa is moist. NECK: Supple, nontender, no JVD CHEST: Symmetrical, atraumatic and with equal expansion ,Nontender on palpation CARDIOVASCULAR: Heart regular rhythm & rate. S1/S2. no murmur or gallop rub or extra beats. LUNGS: Clear to auscultation bilaterally with symmetrical chest rise. No laboring tachypnea or wheezing. No intercostal subcostal retraction. No rales and no rhonchi. ABDOMEN: Soft, flat, nontender to palpation, no guarding or rebound tenderness. Active and normal bowel sounds. EXTREMITIES:Moves all 4 extremities,No B/L LE edema. SKIN: Warm and dry, no jaundice or rashes noted. NEURO: Patient is AO x 3, Cranial nerves II through XII grossly intact. There is no focal neurologic deficits noted. PSYCHIATRIC: Patient is in normal mood, cooperative, no SI or HI or hallucinations. Exam Vital Signs Temp Pulse Resp BP Pulse Ox O2 Del Method 97.0 F 75 18 111/78 100 Room Air 10/17/24 08:00 10/17/24 08:40 10/17/24 08:00 10/17/24 08:40 10/17/24 08:00 10/17/24 08:00 Results Labs 10/17/24 05:00 10/17/24 10:05 Labs: Short CBC 10/16/24 10/17/24 Range/Units 17:50 05:00 WBC 9.6 11.9 H (3.8-10.6) Thou/mm3 Hgb 11.2 L 10.9 L (13.5-16.0) g/dL Hct 33.1 L 31.4 L (41.0-53.0) % Plt Count 249 239 (140-440) Thou/mm3 BMP 10/16/24 10/17/24 10/17/24 17:50 05:00 10:05 Sodium 144 146 H 143 Potassium 5.2 H 5.0 4.8 Chloride 116 H 119 H 118 H Carbon Dioxide 14.8 L* 15.6 L 15.7 L BUN 38 H 38 H 35 H Creatinine 2.2 H 2.0 H 1.9 H Glucose 216 H D 126 H D 214 H D Calcium 8.6 8.7 8.0 L Cardiac Enzymes 10/16/24 Range/Units 17:50 Troponin I < 0.020 (0.0-0.045) ng/mL Liver Function 10/16/24 10/17/24 10/17/24 Range/Units 17:50 05:00 10:05 Total Bilirubin < 0.2 L 0.2 L (0.3-1.2) mg/dL Direct Bilirubin < 0.1 < 0.1 (0.0-0.3) mg/dL AST 11 < 10 (0-34) U/L ALT 30 28 (10-49) U/L Alkaline Phosphatase 118 H 113 (46-116) U/L Albumin 3.7 3.7 3.2 L D (3.4-4.8) gm/dL Urine 10/16/24 10/17/24 Range/Units 17:56 02:17 Urine Color [place] A Yellow (Lt Yel-Yel) Urine Clarity Turbid A Turbid A (Clear/Hazy) Urine pH 6.0 5.5 (5.0-7.0) Ur Specific Ag[place] 1.016 1.015 (1.001-1.035) Urine Protein 2+ A 1+ A (Neg - Trace) Urine Glucose (UA) 1+ A Trace (Negative) Quality Measures Quality Measures none Advance care planning discussed with:: patient Medications Home Medications and Allergies Home Medications ?Medication ?Instructions ?Recorded ?Confirmed ?Type fluconazole 200 mg tablet 400 mg PO HS ##0 09/18/12 History amlodipine 10 mg tablet (Norvasc) 10 mg PO QDAY #0 tab s 09/10/13 10/17/24 History omega 3-dha 500 mg-epa 100 mg-fish 1 cap PO QDAY 04/0910/17/24 History oil capsule tamsulosin 0.4 mg capsule 0.4 mg PO QDAY 07/05/1810/02 History finasteride 5 mg tablet 5 mg PO QDAY 11/19/18 History acetaminophen 650 mg 650 mg PO Q8H PRN Pain 01/1510/17/24 History tablet,extended release sitagliptin phosphate 50 1,000 tab PO BID 04/29/24 History mg-metformin 1,000 mg tablet (Janumet) Held on 10/17/24. Instructions: Doctor's Order sertraline 25 mg tablet 25 mg PO QDAY 06/05/2410/17 History glipizide 2.5 mg tablet, extended 2.5 mg PO BID 10/17/24 History release 24 hr Allergies Allergy/AdvReac Type Severity Reaction Status Date / Time No Known Allergies Allergy Verified 10/16/24 17:17 Visit Medications Acetaminophen (Acetaminophen 325 Mg Tablet) 650 mg PO Q6H PRN; Protocol PRN Reason: PAIN OR FEVER > 101 Stop: 11/15/24 22:14 Hydrocodone Bitart/Acetaminophen (Hydrocodone/Apap 5/325 Tablet) 1 tab PO Q6HR PRN; Protocol PRN Reason: PAIN Stop: 10/21/24 22:14 Amlodipine Besylate (Amlodipine Besylate 5 Mg Tablet) 10 mg PO QDAY [facility] Stop: 11/16/24 08:59 Last Admin: 10/17/24 08:40 Dose: 10 mg Dextrose (Dextrose 50%-Water Inj 50 Ml Syringe) 25 ml IV Q15MIN PRN PRN Reason: BG 50-70 responsive npo pt Stop: 11/15/24 22:14 Dextrose (Dextrose 50%-Water Inj 50 Ml Syringe) 50 ml IV Q15MIN PRN PRN Reason: BG <50 OR BG <70 & pt unresponsive Stop: 11/15/24 22:14 Fluconazole (Fluconazole 100 Mg Tablet) 200 mg PO QDAY [facility] Stop: 10/24/24 08:59 Last Admin: 10/17/24 08:41 Dose: 200 mg Glucagon (Glucagon Inj 1 Mg Vial) 1 mg IM Q15MIN PRN PRN Reason: BG <70, and no IV access Doxycycline Hyclate 100 mg/ (Sodium Chloride) 100 mls @ 100 mls/hr IV BID EMELIA Stop: 10/23/24 22:29 Last Admin: 10/17/24 08:40 Dose: 100 mls/hr [place] 1,000 mg/ Sodium (Chloride) 50 mls @ 100 mls/hr IV Q12HR [facility] Stop: 10/24/24 08:59 Last Admin: 10/17/24 09:39 Dose: 100 mls/hr Lactated Ringer's (Lactated Ringers) 1,000 mls @ 125 mls/hr IV .Q8H [facility] Stop: 10/17/24 17:26 Last Admin: 10/17/24 10:07 Dose: 125 mls/hr Insulin Human Lispro (Insulin Lispro (Admelog) 1 Unit/0.01 Ml Unit) 0 unit SC AC [facility]; Protocol Stop: 11/16/24 07:29 Last Admin: 10/17/24 11:31 Dose: 2 unit Ondansetron HCl (Ondansetron Inj 2 Mg/Ml Inj 2 Ml) 4 mg IV Q6H PRN; Protocol PRN Reason: NAUSEA OR VOMITING Stop: 11/15/24 22:14 Sennosides (Senna Tablet) 2 tab PO BID PRN; Protocol PRN Reason: CONSTIPATION Stop: 11/15/24 22:14 Sodium Chloride (Sodium Chloride Rt Jaylene 0.9% 3 Ml Nebu) 3 ml INH PRN PRN PRN Reason: SOLN Stop: 11/15/24 22:32 Last Admin: 10/16/24 22:52 Dose: 3 ml Tamsulosin HCl (Tamsulosin Hcl 0.4 Mg Capsule) 0.4 mg PO QDAY [facility] Stop: 11/16/24 08:59 Last Admin: 10/17/24 08:41 Dose: 0.4 mg Discontinued Medications Albuterol (Albuterol Rt 2.5 Mg/0.5 Ml Nebu) 5 mg INH X1 ONE Stop: 10/16/24 22:34 Last Admin: 10/16/24 22:52 Dose: 5 mg Ceftriaxone Sodium/Dextrose (Rocephin/D5w 1gm Iv Premix) 1 gm in 50 mls @ 100 mls/hr IV X1 ONE Stop: 10/16/24 20:28 Last Infusion: 10/16/24 20:52 Dose: Infused Sodium Chloride (Ns) 1,000 mls @ 999 mls/hr IV .Q1H1M ONE Stop: 10/16/24 20:59 Last Infusion: 10/16/24 21:24 Dose: Infused Sodium Chloride (Ns) 500 mls @ 999 mls/hr IV .Q31M ONE Stop: 10/17/24 09:03 Last Admin: 10/17/24 10:00 Dose: Not Given Sodium Chloride (Ns) 1,000 mls @ 125 mls/hr IV .Q8H EMELIA Stop: 11/16/24 09:23 Sodium Chloride (Ns) 500 mls @ 999 mls/hr IV .Q31M ONE Stop: 10/17/24 10:15 Last Admin: 10/17/24 09:53 Dose: 999 mls/hr Insulin Human Regular (Insulin Hum Regular 1 Unit/0.01 Ml (Per Unit)) 5 unit IV X1 ONE Stop: 10/16/24 22:34 Last Admin: 10/16/24 23:22 Dose: 5 unit Ondansetron HCl (Ondansetron Inj 2 Mg/Ml Inj 2 Ml) 4 mg IV X1 ONE; Protocol Stop: 10/16/24 20:00 Last Admin: 10/16/24 20:22 Dose: 4 mg Sodium Polystyrene Sulfonate (Sod Polystyrene Sulfon Susp 15 Gm/60 Ml Btl) 15 gm PO X1 ONE Stop: 10/16/24 22:35 Last Admin: 10/16/24 23:23 Dose: 15 gm Assessment & Plan Plan 74 yrs old male with PMH of HTN, valley fever , aortic aneurysm, DM, kidney stones and left hydronephrosis came to ED for UTI sent by his PCP . He has h/o Dr Lwas putting ureteral stent in June for kidney stones, which was removed 2 weeks later.most recent urine culture grew ESBL, and he was prescribed p.o. antibiotics, patient reported improvement in his symptoms, but is now concerned due to diarrhea and recurrent UTI. Initial EKG in the ER showed first-degree AV block and sinus rhythm, no evidence of STEMI or reciprocal changes on EKG. as per the patient he saw Dr. Browning years ago and at that time cardiac workup was normal. He also states that last year he had a hip fracture and was admitted in the hospital and they found out about his kidney stone since then he had lost almost 60 pounds. ED vitals: BP?118/78, P?96, RR?18, temperature?98 ED labs : WBC?11.9, hemoglobin?10.9, ESR?25, BUN?35, creatinine?1.9, LDL?60, HDL?28 TSH is the 0.33 UA positive for UTI ED imaging : head Ct -No ventricular enlargement,Mild chronic subdural hygromas with no mass effect, No acute hemorrhage or mass effect . CT abdomen - Aneurysmal dilatation ascending thoracic aorta, No pneumonia or pulmonary edema or pleural diseaseSignificant left hydronephrosis, the patient's left ureteral stent is no longer identified, Marked thickening of the urinary bladder wall, consider cystitis and vesicoureteral reflux #Aneurysmal dilatation ascending thoracic aorta # HTN - Ct Scan showed AP dimension ascending thoracic aorta 4.5 cm -His BP is 116/78 - He takes amlodipine at home which is currently on hold. -Medical management for aneurysmal dilation of ascending thoracic aorta, he will need annual CT surveillance - trop negative - He had done cardiac workup with Dr Browning in 2019 which was normal -he denises any chest pain . - repeat EKG didn't show any significant st changes . -Follup with Dr Browning outpatient for wardiac workup . currently stable Rest of the medical management as per primary team Discussed with my attending Dr. Nam Talley MD, PGY-3
--- NOTE | 2024-10-17 13:07 | EKG_ITS ---
[facility] Test Date: 2024-10-17 Pat Name: JANE OWENS [facility] Banquet Set Up Person: ANDREY : 1950 Requested By: Tian Rodriguez Order Number: [id number] Reading MD: Tian Rodriguez Measurements Intervals Graham Rate: 80 P: WI: QRS: 44 QRSD: 73 T: 65 QT: 352 QTc: 408 Interpretive Statements SUPRAVENTRICULAR RHYTHM LOW QRS VOLTAGE IN PRECORDIAL LEADS POSSIBLE ANTERIOR MYOCARDIAL INFARCTION , OF INDETERMINATE AGE ST ELEVATION, CONSIDER INFERIOR INJURY ACUTE WI Compared to ECG 04/26/2024 20:54:52 Supraventricular rhythm now present Low QRS voltage now present Myocardial infarct finding now present ST (T wave) deviation now present Sinus rhythm no longer present /store/S0/[id number]
[2024-10-17 14:13] LABS: Clostridium Difficile PCR Negative (Negative)
--- NOTE | 2024-10-17 14:24 | ESPR_ITS ---
<Statement entered by Leon Zimmerman MD - 10/22/24 15:12> I reviewed above note and agree with findings and plans. I have also personally examined the patient with medicine team and went over assessment and plan with medical team including electrical intern and resident physician. Documentation for date of: 10/17/24 Subjective Subjective Interval history: Patient seen today at the bedside found awake, alert, orientedx3. No overnight events reported. Vitals and labs reviewed. Lactic acid continues to trend down while on aggressive IV hydration will order renal panel in the afternoon. As patient has previous cultures with ESBL broadened antibiotic therapy to meropenem and IV doxycycline. Will continue to monitor at this time. Exam Vital Signs Temp Pulse Resp BP Pulse Ox O2 Del Method 97.0 F 82 18 111/78 100 Room Air 10/17/24 08:00 10/17/24 13:03 10/17/24 13:03 10/17/24 08:40 10/17/24 08:00 10/17/24 08:00 Narrative Exam Physical Exam GENERAL: NAD, AAOx3 HEENT: Moist mucosa. Eyes open, symmetrical, & clear CARDIO: Heart RRR, no obvious murmurs PULM: No noted coughing/dyspnea CTA B/L, no R/W/R GI: Abdomen soft, nondistended, no pain on palpation. BSx4 SKIN/MSK/EXT: No wounds/rashes/edema/amputations, no pain on palpation. Pedal pulses present B/L NEURO: AAOx3, no focal neuro deficits, able to move all 4 extremities Objective Labs 10/17/24 05:00 10/17/24 10:05 Labs: Laboratory Results - last 24 hr 10/16/24 10/16/24 10/16/24 17:50 17:56 21:34 WBC 9.6 RBC 3.52 L Hgb 11.2 L Hct 33.1 L MCV 94 MCH 31.8 MCHC 33.8 RDW Std Deviation 50.8 H Plt Count 249 Neut % (Auto) 76 Lymph % (Auto) 16 [place] % (Auto) 7 Eos % (Auto) 1 Baso % (Auto) 0 Neut # (Auto) 7.3 Lymph # (Auto) 1.5 [place] # (Auto) 0.7 Eos # (Auto) 0.1 Baso # (Auto) 0.0 Immature Gran # (Auto) 0.03 H Absolute Nucleated RBC 0.00 Immature Gran % 0 Nucleated RBC % 0 ESR 25 H PT INR Sodium 144 Potassium 5.2 H Chloride 116 H Carbon Dioxide 14.8 L* Anion Gap 13 BUN 38 H Creatinine 2.2 H Estim Creat Clear Calc 27.9 L eGFR 30 L BUN/Creatinine Ratio 17 Glucose [address] Glu mg/dL Hemoglobin A1c Calculated Osmolality 302 H Lactic Acid 3.3 H 1.4 Calcium 8.6 Corrected Calcium 8.8 Phosphorus Magnesium 1.9 Total Bilirubin < 0.2 L Direct Bilirubin < 0.1 AST 11 ALT 30 Alkaline Phosphatase 118 H Troponin I < 0.020 C-Reactive Prot, Quant < 0.5 Total Protein 6.6 Albumin 3.7 Globulin 2.9 Albumin/Globulin Ratio 1.3 Triglycerides Cholesterol LDL Cholesterol, Calc HDL Cholesterol Cholesterol/HDL Ratio Amylase 96 Lipase 50 Procalcitonin 0.11 TSH 0.38 L Free T4 0.99 Ur Collection Type Clean Catch Urine Color [place] A Urine Clarity Turbid A Urine pH 6.0 Ur Specific [place] 1.016 Urine Protein 2+ A Urine Glucose (UA) 1+ A Urine Ketones Negative Urine Blood 3+ A Urine Nitrite Positive Urine Bilirubin Negative Urine Urobilinogen (Auto) Negative Ur Leukocyte Esterase Positive Urine RBC 184 H Urine WBC 2971 H Ur Squamous Epith Cells 2 Urine Bacteria 4+ A Stool for White Cells Stl C. diff Tox B Gene 10/17/24 10/17/24 10/17/24 02:13 02:17 05:00 WBC 11.9 H RBC 3.43 L Hgb 10.9 L Hct 31.4 L MCV 92 MCH 31.8 MCHC 34.7 RDW Std Deviation 49.6 H Plt Count 239 Neut % (Auto) 78 Lymph % (Auto) 13 [place] % (Auto) 8 Eos % (Auto) 0 Baso % (Auto) 0 Neut # (Auto) 9.3 H Lymph # (Auto) 1.6 [place] # (Auto) 0.9 H Eos # (Auto) 0.0 Baso # (Auto) 0.0 Immature Gran # (Auto) 0.06 H Absolute Nucleated RBC 0.00 Immature Gran % 1 H Nucleated RBC % 0 ESR PT 11.8 INR 1.1 Sodium 146 H Potassium 5.0 Chloride 119 H Carbon Dioxide 15.6 L Anion Gap 11 BUN 38 H Creatinine 2.0 H Estim Creat Clear Calc 28.1 L eGFR 34 L BUN/Creatinine Ratio 19 Glucose [address] Glu mg/dL 123 Hemoglobin A1c 5.9 Calculated Osmolality 301 H Lactic Acid 2.2 H Calcium 8.7 Corrected Calcium Phosphorus 4.1 Magnesium 1.9 Total Bilirubin 0.2 L Direct Bilirubin < 0.1 AST < 10 ALT 28 Alkaline Phosphatase 113 Troponin I C-Reactive Prot, Quant Total Protein 6.6 Albumin 3.7 Globulin Albumin/Globulin Ratio Triglycerides 105 Cholesterol 109 L LDL Cholesterol, Calc 60 HDL Cholesterol 28 L Cholesterol/HDL Ratio 3.9 L Amylase Lipase Procalcitonin TSH 0.33 L Free T4 Ur Collection Type Clean Catch Urine Color Yellow Urine Clarity Turbid A Urine pH 5.5 Ur Specific [place] 1.015 Urine Protein 1+ A Urine Glucose (UA) Trace Urine Ketones Negative Urine Blood 2+ A Urine Nitrite Positive Urine Bilirubin Negative Urine Urobilinogen (Auto) Negative Ur Leukocyte Esterase Positive Urine RBC 55 H Urine WBC 963 H Ur Squamous Epith Cells 0 Urine Bacteria 4+ A Stool for White Cells Stl C. diff Tox B Gene 10/17/24 10/17/24 10/17/24 07:15 09:00 10:05 WBC RBC Hgb Hct MCV MCH MCHC RDW Std Deviation Plt Count Neut % (Auto) Lymph % (Auto) [place] % (Auto) Eos % (Auto) Baso % (Auto) Neut # (Auto) Lymph # (Auto) [place] # (Auto) Eos # (Auto) Baso # (Auto) Immature Gran # (Auto) Absolute Nucleated RBC Immature Gran % Nucleated RBC % ESR PT INR Sodium 143 Potassium 4.8 Chloride 118 H Carbon Dioxide 15.7 L Anion Gap 9 BUN 35 H Creatinine 1.9 H Estim Creat Clear Calc 29.5 L eGFR 36 L BUN/Creatinine Ratio 18 Glucose [address] Glu mg/dL Hemoglobin A1c Calculated Osmolality 298 H Lactic Acid 2.3 H 1.9 Calcium 8.0 L Corrected Calcium 8.6 Phosphorus 3.3 Magnesium Total Bilirubin Direct Bilirubin AST ALT Alkaline Phosphatase Troponin I C-Reactive Prot, Quant Total Protein Albumin 3.2 L D Globulin Albumin/Globulin Ratio Triglycerides Cholesterol LDL Cholesterol, Calc HDL Cholesterol Cholesterol/HDL Ratio Amylase Lipase Procalcitonin TSH Free T4 Ur Collection Type Urine Color Urine Clarity Urine pH Ur Specific [place] Urine Protein Urine Glucose (UA) Urine Ketones Urine Blood Urine Nitrite Urine Bilirubin Urine Urobilinogen (Auto) Ur Leukocyte Esterase Urine RBC Urine WBC Ur Squamous Epith Cells Urine Bacteria Stool for White Cells Negative Stl C. diff Tox B Gene Negative Quality Measures Quality Measures none Advance care planning discussed with:: patient Assessment & Plan Assessment Current Active Medications: Generic Name Dose Route Start Last Admin Trade Name Freq PRN Reason Stop Dose Admin Acetaminophen 650 mg 10/16/24 22:15 Acetaminophen 325 Mg Tablet PO 11/15/24 22:14 Q6H PRN PAIN OR FEVER > 101 Protocol Hydrocodone Bitart/Acetaminophen 1 tab 10/16/24 22:15 Hydrocodone/Apap 5/325 Tablet PO 10/21/24 22:14 Q6HR PRN PAIN Protocol Amlodipine Besylate 10 mg 10/17/24 09:00 10/17/24 08:40 Amlodipine Besylate 5 Mg Tablet PO 11/16/24 08:59 10 mg QDAY EMELIA Administration Dextrose 25 ml 10/16/24 22:15 Dextrose 50%-Water Inj 50 Ml Syringe IV 11/15/24 22:14 Q15MIN PRN BG 50-70 responsive npo pt Dextrose 50 ml 10/16/24 22:15 Dextrose 50%-Water Inj 50 Ml Syringe IV 11/15/24 22:14 Q15MIN PRN BG <50 OR BG <70 & pt unresponsive Fluconazole 200 mg 10/17/24 09:00 10/17/24 08:41 Fluconazole 100 Mg Tablet PO 10/24/24 08:59 200 mg QDAY EMELIA Administration Glucagon 1 mg 10/16/24 22:15 Glucagon Inj 1 Mg Vial IM Q15MIN PRN BG <70, and no IV access Doxycycline Hyclate 100 mg/ 100 mls @ 100 mls/hr 10/16/24 22:30 10/17/24 08:40 Sodium Chloride IV 10/23/24 22:29 100 mls/hr BID EMELIA Administration Meropenem 1,000 mg/ Sodium 50 mls @ 100 mls/hr 10/17/24 09:00 10/17/24 09:39 Chloride IV 10/24/24 08:59 100 mls/hr Q12HR EMELIA Administration Lactated Ringer's 1,000 mls @ 125 mls/hr 10/17/24 09:27 10/17/24 10:07 Lactated Ringers IV 10/17/24 17:26 125 mls/hr .Q8H EMELIA Administration Insulin Human Lispro 0 unit 10/17/24 07:30 10/17/24 11:31 Insulin Lispro (Admelog) 1 Unit/0.01 Ml Unit SC 11/16/24 07:29 2 unit AC EMELIA Administration Protocol Ondansetron HCl 4 mg 10/16/24 22:15 Ondansetron Inj 2 Mg/Ml Inj 2 Ml IV 11/15/24 22:14 Q6H PRN NAUSEA OR VOMITING Protocol Sennosides 2 tab 10/16/24 22:15 Senna Tablet PO 11/15/24 22:14 BID PRN CONSTIPATION Protocol Sodium Chloride 3 ml 10/16/24 22:33 10/16/24 22:52 Sodium Chloride Rt Jay[place] 0.9% 3 Ml Nebu INH 11/15/24 22:32 3 ml PRN PRN Administration SOLN Tamsulosin HCl 0.4 mg 10/17/24 09:00 10/17/24 08:41 Tamsulosin Hcl 0.4 Mg Capsule PO 11/16/24 08:59 0.4 mg QDAY EMELIA Administration Plan 74-year-old male with a past medical history of diabetes mellitus, hypertension, valley fever, aortic aneurysm, kidney stones and left hydronephrosis who was directed to go to the emergency room from his physician's office after urinalysis showed evidence of UTI. #Complicated UTI Patient has history of urine cultures growing ESBL UTI patient also has history of left hydronephrosis and stent placement with removal. UA shows signs of urinary tract infection. CT abdomen pelvis shows significant left hydronephrosis however stable when compared to previous CT scans ? Started on meropenem (10/17? ? On IV doxycycline (516? ? Follow-up urine cultures #Lactic acidosis?resolved #Non-anion gap metabolic acidosis Improving with IV resuscitation, acidosis likely secondary to chronic diarrhea ? Will monitor at this time #JINA on CKD stage IIIb?improving #Hyperkalemia?resolved #History of BPH Was given hyperkalemia cocktail with resolution ? Continue Flomax ? IV fluids ? Renally dose medications ? Avoid nephrotoxins #Chronic diarrhea #Rule out C. difficile infection Patient has had multiple courses of antibiotic therapy for recurrent UTIs has had chronic diarrhea for the past 2 months ? Isolation precautions ? Follow-up C. difficile ? Stool cultures and stool WBCs ordered #Diabetes mellitus type 2 Last A1c: 5.9 ? SSI ? Hypoglycemia protocol in place #Hypertension Currently normotensive ? Will resume antihypertensives when appropriate Health Maintenance: Disposition: Telemetry, antibiotic therapy broadened Fluids: LR Feeding: Renal diet Thrombo prophylaxis: SCDs Gastric Ulcer prophylaxis: None CODE STATUS: Full code Case discussed with my attending Dr. Elsie Garcia MD PGY-1 Disclaimer: Despite multiple revisions, due to the dictation software being used, the document bellow may not be free of grammatical errors including phonetic/typographic errors. However, this does not deter from our commitment to providing health care in the patient's best interest in mind.
--- NOTE | 2024-10-17 16:11 | PC.SS ---
Patient is currently on isolation precautions due to r/o cdiff. Patient is alert/oriented. Patient is independent with ADL's. Admitted for complicated UTI. Patient lives alone. He has a careprovider that comes in to check on him daily. Patient's careprovider provides transprtation as needed. Patient's son, Enrique, is the p.o.c. and alt medical decision maker. Patient will be discharged back home upon discharge.
[2024-10-17 16:23] LABS: Lactate (Lactic Acid) 1.4 mMol/L (0.4-2.0)
[2024-10-18] VITALS (9 sets, daily range): BP systolic 112–148; BP diastolic 72–82; PULSE 67–90; RESP 13–98; TEMP 36.6–37.3; O2SAT 95–99; BMI 18.5
[2024-10-18 06:29] LABS: Basophils # (Auto) 0.1 Thou/mm3 (0.0-0.2); Basophils % (Auto) 1 % (0-2.5); Eosinophils # (Auto) 0.2 Thou/mm3 (0.0-0.5); Eosinophils % (Auto) 2 % (0-10); Hemoglobin 9.9 g/dL (13.5-16.0); Immature Granulocytes % (Auto) 1 % (0-0); Immature Granulocytes Auto 0.07 Thou/mm3 (0.00-0.00); Lymphocytes # (Auto) 1.8 Thou/mm3 (1.0-4.8); Lymphocytes % (Auto) 22 % (10-50); Mean Corpuscular Hemoglobin 31.1 pg (25.0-35.0); Mean Corpuscular Volume 94 fL (80-100); Monocytes # (Auto) 0.7 Thou/mm3 (0.0-0.8); Monocytes % (Auto) 9 % (0-12); Neutrophils # (Auto) 5.6 Thou/mm3 (1.8-7.7); Neutrophils % (Auto) 66 % (37-80); Nucleated Red Blood Cell % 0 /100 WBC (0); Platelet Count 219 Thou/mm3 (140-440); RDW Standard Deviation 51.6 fL (35.1-43.9); Red Blood Count 3.18 Miln/mm3 (4.50-5.90); White Blood Count 8.5 Thou/mm3 (3.8-10.6)
[2024-10-18 07:13] LABS: Alanine Aminotransferase 22 U/L (10-49); Albumin, Serum 3.2 gm/dL (3.4-4.8); Albumin/Globulin Ratio 1.2 (1.2-2.2); Alkaline Phosphatase 97 U/L (46-116); Anion Gap 10 (7-16); Aspartate Amino Transferase 11 U/L (0-34); BUN/Creatinine Ratio 17 Ratio (12-20); Bilirubin,Total 0.3 mg/dL (0.3-1.2); Blood Urea Nitrogen 27 mg/dL (9-23); Calcium 8.3 mg/dL (8.3-10.6); Calcium (Corrected) 8.9 mg/dL (8.5-10.1); Carbon Dioxide 16.4 mMol/L (20.0-31.0); Chloride 118 mMol/L (98-107); Creatinine (Component) 1.6 mg/dL (0.6-1.3); Globulin 2.6 gm/dL (2.3-3.5); Glucose 82 mg/dL (74-106); Magnesium 1.5 mg/dL (1.6-2.6); Osmolality,Calculated 290 (275-295); Phosphorous 3.3 mg/dL (2.4-5.1); Potassium 4.9 mMol/L (3.4-5.1); Sodium 144 mMol/L (136-145); Total Protein 5.8 gm/dL (5.7-8.2); eGFR 45 See Note
[2024-10-18] MEDS: TAMSULOSIN HCL 0.4 MG CAPSULE PO (08:12)
[2024-10-18] MEDS: FLUCONAZOLE 100 MG TABLET 200 MG PO (08:12)
[2024-10-18] MEDS: MEROPENEM INJ 1,000 MG in SODIUM CHLORIDE 0.9% (Popper) 50 ML 100 MG IV ×2 (08:13→21:02)
[2024-10-18] MEDS: DOXYCYCLINE INJ 100 MG in SODIUM CHLORIDE 0.9% (POP) 100 ML IV ×2 (08:40→21:02)
[2024-10-18] MEDS: INSULIN LISPRO (AdmeLOG) 1 UNIT/0.01 ML UNIT SC (11:29)
--- NOTE | 2024-10-18 11:53 | ESPR_ITS ---
<Statement entered by Leon Zimmerman MD - 10/23/24 16:23> I reviewed above note and agree with findings and plans. I have also personally examined the patient with medicine team and went over assessment and plan with medical team including spring intern and resident physician. Documentation for date of: 10/18/24 Subjective Subjective Interval history: Patient was seen and examined at bedside this AM. No acute events overnight. Patient is tolerating diet, adequate urine output and mentation is at baseline. On Meropenem given previous cultures showing MDR ESBL + Blood cultures negative. Pending urine culture and stool culture results. Patient denies SNF, will get ID consultation on Sunday re: discharge recommendations for PO antibiotics Patient endorses improvement of diarrhea. Pending urine and stool culture results. Will DC gonsales. He wears a diaper at baseline due to incontinence. Exam Vital Signs Temp Pulse Resp BP Pulse Ox O2 Del Method 98.5 F 72 13 112/79 97 Room Air 10/18/24 08:00 10/18/24 08:00 10/18/24 08:00 10/18/24 08:00 10/18/24 08:00 10/18/24 08:00 Narrative Exam Constitutional Alert, oriented x3 and comfortable on RA HEENT Vision grossly intact. Patent nares. Trachea midline. Respiratory Chest normal on inspection and clear to auscultation bilaterally. Cardiovascular S1 and S2 audible, RRR. No murmurs or carotid bruit. No gross JVD. Abdominal Soft and BS + ; non tender to palpation in all quadrants. Genitourinary No bladder tenderness, no flank pain. Normal to palpation. [place] Musculoskeletal Extremities tone within normal limits. No LE edema. Neurological CN II - XII grossly intact. Extremity motor and sensation grossly intact. Skin Warm, dry and intact. No apparent lesions. Psychiatric Patient has a good affect, is cooperative. Objective Labs 10/18/24 05:46 10/18/24 05:46 Labs: Laboratory Results - last 24 hr 10/17/24 10/17/24 10/18/24 09:00 16:08 05:46 WBC 8.5 RBC 3.18 L Hgb 9.9 L Hct 30.0 L MCV 94 MCH 31.1 MCHC 33.0 RDW Std Deviation 51.6 H Plt Count 219 Neut % (Auto) 66 Lymph % (Auto) 22 [place] % (Auto) 9 Eos % (Auto) 2 Baso % (Auto) 1 Neut # (Auto) 5.6 Lymph # (Auto) 1.8 [place] # (Auto) 0.7 Eos # (Auto) 0.2 Baso # (Auto) 0.1 Immature Gran # (Auto) 0.07 H Absolute Nucleated RBC 0.00 Immature Gran % 1 H Nucleated RBC % 0 Sodium 144 Potassium 4.9 Chloride 118 H Carbon Dioxide 16.4 L Anion Gap 10 BUN 27 H Creatinine 1.6 H Estim Creat Clear Calc 35.0 L eGFR 45 L BUN/Creatinine Ratio 17 Glucose 82 D Calculated Osmolality 290 Lactic Acid 1.4 Calcium 8.3 Corrected Calcium 8.9 Phosphorus 3.3 Magnesium 1.5 L Total Bilirubin 0.3 AST 11 ALT 22 Alkaline Phosphatase 97 Total Protein 5.8 Albumin 3.2 L Globulin 2.6 Albumin/Globulin Ratio 1.2 Stl C. diff Tox B Gene Negative Quality Measures Quality Measures none Advance care planning discussed with:: patient Assessment & Plan Assessment Current Active Medications: Generic Name Dose Route Start Last Admin Trade Name Freq PRN Reason Stop Dose Admin Acetaminophen 650 mg 10/16/24 22:15 Acetaminophen 325 Mg Tablet PO 11/15/24 22:14 Q6H PRN PAIN OR FEVER > 101 Protocol Hydrocodone Bitart/Acetaminophen 1 tab 10/16/24 22:15 Hydrocodone/Apap 5/325 Tablet PO 10/21/24 22:14 Q6HR PRN PAIN Protocol Amlodipine Besylate 10 mg 10/17/24 09:00 10/17/24 08:40 Amlodipine Besylate 5 Mg Tablet PO 11/16/24 08:59 10 mg QDAY EMELIA Administration Dextrose 25 ml 10/16/24 22:15 Dextrose 50%-Water Inj 50 Ml Syringe IV 11/15/24 22:14 Q15MIN PRN BG 50-70 responsive npo pt Dextrose 50 ml 10/16/24 22:15 Dextrose 50%-Water Inj 50 Ml Syringe IV 11/15/24 22:14 Q15MIN PRN BG <50 OR BG <70 & pt unresponsive Fluconazole 200 mg 10/17/24 09:00 10/18/24 08:12 Fluconazole 100 Mg Tablet PO 10/24/24 08:59 200 mg QDAY EMELIA Administration Glucagon 1 mg 10/16/24 22:15 Glucagon Inj 1 Mg Vial IM Q15MIN PRN BG <70, and no IV access Doxycycline Hyclate 100 mg/ 100 mls @ 100 mls/hr 10/16/24 22:30 10/18/24 08:40 Sodium Chloride IV 10/23/24 22:29 100 mls/hr BID EMELIA Administration Meropenem 1,000 mg/ Sodium 50 mls @ 100 mls/hr 10/17/24 09:00 10/18/24 08:13 Chloride IV 10/24/24 08:59 100 mls/hr Q12HR EMELIA Administration Insulin Human Lispro 0 unit 10/17/24 07:30 10/18/24 11:29 Insulin Lispro (Admelog) 1 Unit/0.01 Ml Unit SC 11/16/24 07:29 1 unit AC EMELIA Administration Protocol Ondansetron HCl 4 mg 10/16/24 22:15 Ondansetron Inj 2 Mg/Ml Inj 2 Ml IV 11/15/24 22:14 Q6H PRN NAUSEA OR VOMITING Protocol Sennosides 2 tab 10/16/24 22:15 Senna Tablet PO 11/15/24 22:14 BID PRN CONSTIPATION Protocol Sodium Chloride 3 ml 10/16/24 22:33 10/16/24 22:52 Sodium Chloride Rt [place] 0.9% 3 Ml Nebu INH 11/15/24 22:32 3 ml PRN PRN Administration SOLN Tamsulosin HCl 0.4 mg 10/17/24 09:00 10/18/24 08:12 Tamsulosin Hcl 0.4 Mg Capsule PO 11/16/24 08:59 0.4 mg QDAY EMELIA Administration Plan Mr Hernandez is a 74-year-old male with a past medical history of diabetes mellitus, hypertension, valley fever, aortic aneurysm, kidney stones and left hydronephrosis who was directed to go to the emergency room from his physician's office after urinalysis showed evidence of UTI. Complicated UTI Patient has history of urine cultures growing ESBL UTI patient also has history of left hydronephrosis and stent placement with removal. UA shows signs of urinary tract infection. CT abdomen pelvis : significant left hydronephrosis however ; stable when compared to previous CT scans 10/18 : Blood cultures negative. Plan: - On IV meropenem (10/17? ) for ESBL UTI hx - On IV doxycycline (516? ) ; will transition to PO tomorrow - Patient denies SNF, will get ID consultation on Sunday re: discharge recommendations for PO antibiotics - Follow-up urine culture and stool culture results. JINA on CKD stage IIIb ?improving Hyperkalemia ?resolved History of BPH Was given hyperkalemia cocktail with resolution K trending 4.8 - 5 10/18 : JINA : 2.5 -> 2.0 -> 1.6 Plan: ? Continue Flomax ? IV fluids discontinued. Oral intake encouraged ? Renally dose medications ? Avoid nephrotoxins Chronic diarrhea - resolved Non-anion gap metabolic acidosis Improving with IV resuscitation, acidosis likely secondary to chronic diarrhea Patient has had multiple courses of antibiotic therapy for recurrent UTIs has had chronic diarrhea for the past 2 months 10/17 : C. difficile : negative 10/18 : BiCarb : 15.6 -> 16.4 Plan: ? Isolation precautions removed ? Final Stool cultures results pending - Anticipate improvement in acidosis as oral intake improved Primary Hypertension Currently normotensive without medications Repeat EKG : wnl. Plan: ? Will resume antihypertensives when required BP >120/80 - ED consulted Cardiology for abnormal EKG, appreciate input Type 2 Diabetes mellitus Last A1c: 5.9 Glucose : 126 -> 214 -> 80s Plan: ? Continue SSI ? Hypoglycemia protocol in place Health Maintenance: Disposition: Telemetry. Pending urine cultures. ID consult requested. Fluids: LR Feeding: Renal diet Thrombo prophylaxis: SCDs Gastric Ulcer prophylaxis: None CODE STATUS: Full code Plan of care discussed with attending Dr Zimmerman, - Tian Rodriguez M.D. PGY2 Disclaimer: Minor errors in radio frequency technician may be present as this note was dictated using voice recognition software.
[2024-10-19] VITALS: BP 127/82; PULSE 70; RESP 16; TEMP 37; O2SAT 97
--- NOTE | 2024-10-19 00:09 | ESPR_ITS ---
RE: OLIVER HERNANDEZ : 1950 DATE OF SERVICE: 10/18/2024 Oliver Hernandez appears to be doing better today. He is still having some shortness of breath, but no chest pain, orthopnea or PND. The patient had slightly abnormal EKGs, of no significance. Enzymes are negative. Continues to feel fairly well otherwise. He came to the hospital with possible sepsis, urinary tract infection. Responding well to hydration. Noncompliant with any cardiac limitations. He presented with no chest pain or shortness of breath. LABORATORY DATA: Anemia, hemoglobin 9.9. Creatinine 1.6. His troponin level was negative even though there were some EKG changes. IMPRESSION/ASSESSMENT: 1. Urinary tract infection and sepsis, improving slowly. 2. Acute kidney injury stage IIIB, improving. 3. Slightly abnormal EKG on admission. No clinical significance. 4. Hypertension. RECOMMENDATIONS: Continue medical management. We will continue to monitor the patient's cardiac status. If there are any ST changes or chest pain, we will reevaluate him. May require cardiac workup as an outpatient following discharge considering abnormal EKG on admission. DT: 23:38:14 TT: 00:08:00 Ref: [id number] - TID: [id number]
[2024-10-19] MEDS: Magnesium Sulfate 4 GM Ivpb 4 GM/50 ML BAG IV (03:43)
[2024-10-19 04:00] VITALS: BP 113/81; PULSE 105; RESP 16; TEMP 37; O2SAT 97
[2024-10-19 05:38] LABS: Basophils # (Auto) 0.1 Thou/mm3 (0.0-0.2); Basophils % (Auto) 1 % (0-2.5); Eosinophils # (Auto) 0.2 Thou/mm3 (0.0-0.5); Eosinophils % (Auto) 2 % (0-10); Hematocrit 31.4 % (41.0-53.0); Hemoglobin 10.5 g/dL (13.5-16.0); Immature Granulocytes % (Auto) 1 % (0-0); Immature Granulocytes Auto 0.07 Thou/mm3 (0.00-0.00); Lymphocytes # (Auto) 2.3 Thou/mm3 (1.0-4.8); Lymphocytes % (Auto) 26 % (10-50); Mean Corpuscular HGB Conc 33.4 g/dl (31.0-37.0); Mean Corpuscular Hemoglobin 31.4 pg (25.0-35.0); Mean Corpuscular Volume 94 fL (80-100); Monocytes # (Auto) 0.7 Thou/mm3 (0.0-0.8); Monocytes % (Auto) 8 % (0-12); Neutrophils # (Auto) 5.4 Thou/mm3 (1.8-7.7); Neutrophils % (Auto) 62 % (37-80); Nucleated Red Blood Cell % 0 /100 WBC (0); Platelet Count 224 Thou/mm3 (140-440); RDW Standard Deviation 50.4 fL (35.1-43.9); Red Blood Count 3.34 Miln/mm3 (4.50-5.90); White Blood Count 8.7 Thou/mm3 (3.8-10.6)
[2024-10-19 06:00] VITALS: BMI 18.5
[2024-10-19 06:04] LABS: Alanine Aminotransferase 22 U/L (10-49); Albumin, Serum 3.3 gm/dL (3.4-4.8); Albumin/Globulin Ratio 1.3 (1.2-2.2); Alkaline Phosphatase 95 U/L (46-116); Anion Gap 9 (7-16); Aspartate Amino Transferase 12 U/L (0-34); BUN/Creatinine Ratio 16 Ratio (12-20); Bilirubin,Total 0.2 mg/dL (0.3-1.2); Blood Urea Nitrogen 24 mg/dL (9-23); Calcium 8.4 mg/dL (8.3-10.6); Carbon Dioxide 16.6 mMol/L (20.0-31.0); Chloride 117 mMol/L (98-107); Creatinine (Component) 1.5 mg/dL (0.6-1.3); Estimated Creatinine Clearance 37.4 mL/min (>60); Globulin 2.5 gm/dL (2.3-3.5); Glucose 85 mg/dL (74-106); Osmolality,Calculated 287 (275-295); Sodium 143 mMol/L (136-145); Total Protein 5.8 gm/dL (5.7-8.2); eGFR 48 See Note
--- NOTE | 2024-10-19 07:05 | ESPR_ITS ---
<Statement entered by Leon Zimmerman MD - 10/23/24 16:24> I reviewed above note and agree with findings and plans. I have also personally examined the patient with medicine team and went over assessment and plan with medical team including production internship and resident physician. Documentation for date of: 10/19/24 Subjective Subjective Interval history: Vitals and labs reviewed. ID consulted, pending reccomendations. MRSA positive started on mupirocin, continue Meropenem at this time. Doxycycline transitioned to PO route. Exam Vital Signs Temp Pulse Resp BP Pulse Ox O2 Del Method 98.6 F 105 H 16 113/81 97 Room Air 10/19/24 04:00 10/19/24 04:00 10/19/24 04:00 10/19/24 04:00 10/19/24 04:00 10/19/24 04:00 Narrative Exam Constitutional Alert, oriented x3 and comfortable on RA HEENT Vision grossly intact. Patent nares. Trachea midline. Respiratory Chest normal on inspection and clear to auscultation bilaterally. Cardiovascular S1 and S2 audible, RRR. No murmurs or carotid bruit. No gross JVD. Abdominal Soft and BS + ; non tender to palpation in all quadrants. Genitourinary No bladder tenderness, no flank pain. Normal to palpation. Smith Musculoskeletal Extremities tone within normal limits. No LE edema. Neurological CN II - XII grossly intact. Extremity motor and sensation grossly intact. Skin Warm, dry and intact. No apparent lesions. Psychiatric Patient has a good affect, is cooperative. Objective Labs 10/19/24 04:42 10/19/24 04:42 Labs: Laboratory Results - last 24 hr 10/18/24 10/19/24 05:46 04:42 WBC 8.7 RBC 3.34 L Hgb 10.5 L Hct 31.4 L MCV 94 MCH 31.4 MCHC 33.4 RDW Std Deviation 50.4 H Plt Count 224 Neut % (Auto) 62 Lymph % (Auto) 26 Tyrrell % (Auto) 8 Eos % (Auto) 2 Baso % (Auto) 1 Neut # (Auto) 5.4 Lymph # (Auto) 2.3 Tyrrell # (Auto) 0.7 Eos # (Auto) 0.2 Baso # (Auto) 0.1 Immature Gran # (Auto) 0.07 H Absolute Nucleated RBC 0.00 Immature Gran % 1 H Nucleated RBC % 0 Sodium 144 143 Potassium 4.9 4.0 D Chloride 118 H 117 H Carbon Dioxide 16.4 L 16.6 L Anion Gap 10 9 BUN 27 H 24 H Creatinine 1.6 H 1.5 H Estim Creat Clear Calc 35.0 L 37.4 L eGFR 45 L 48 L BUN/Creatinine Ratio 17 16 Glucose 82 D 85 Calculated Osmolality 290 287 Calcium 8.3 8.4 Corrected Calcium 8.9 9.0 Phosphorus 3.3 3.0 Magnesium 1.5 L 2.0 Total Bilirubin 0.3 0.2 L AST 11 12 ALT 22 22 Alkaline Phosphatase 97 95 Total Protein 5.8 5.8 Albumin 3.2 L 3.3 L Globulin 2.6 2.5 Albumin/Globulin Ratio 1.2 1.3 Quality Measures Quality Measures none Advance care planning discussed with:: patient Assessment & Plan Assessment Current Active Medications: Generic Name Dose Route Start Last Admin Trade Name Freq PRN Reason Stop Dose Admin Acetaminophen 650 mg 10/16/24 22:15 Acetaminophen 325 Mg Tablet PO 11/15/24 22:14 Q6H PRN PAIN OR FEVER > 101 Protocol Hydrocodone Bitart/Acetaminophen 1 tab 10/16/24 22:15 Hydrocodone/Apap 5/325 Tablet PO 10/21/24 22:14 Q6HR PRN PAIN Protocol Amlodipine Besylate 10 mg 10/17/24 09:00 10/17/24 08:40 Amlodipine Besylate 5 Mg Tablet PO 11/16/24 08:59 10 mg QDAY EMELIA Administration Dextrose 25 ml 10/16/24 22:15 Dextrose 50%-Water Inj 50 Ml Syringe IV 11/15/24 22:14 Q15MIN PRN BG 50-70 responsive npo pt Dextrose 50 ml 10/16/24 22:15 Dextrose 50%-Water Inj 50 Ml Syringe IV 11/15/24 22:14 Q15MIN PRN BG <50 OR BG <70 & pt unresponsive Fluconazole 200 mg 10/17/24 09:00 10/18/24 08:12 Fluconazole 100 Mg Tablet PO 10/24/24 08:59 200 mg QDAY EMELIA Administration Glucagon 1 mg 10/16/24 22:15 Glucagon Inj 1 Mg Vial IM Q15MIN PRN BG <70, and no IV access Doxycycline Hyclate 100 mg/ 100 mls @ 100 mls/hr 10/16/24 22:30 10/19/24 01:29 Sodium Chloride IV 10/23/24 22:29 Infused BID EMELIA Infusion Meropenem 1,000 mg/ Sodium 50 mls @ 100 mls/hr 10/17/24 09:00 10/19/24 01:29 Chloride IV 10/24/24 08:59 Infused Q12HR EMELIA Infusion Insulin Human Lispro 0 unit 10/17/24 07:30 10/18/24 16:59 Insulin Lispro (Admelog) 1 Unit/0.01 Ml Unit SC 11/16/24 07:29 Not Given AC [facility] Protocol Mupirocin 2 gm 10/19/24 07:00 Mupirocin Oint 2% 15 Gm Tube TOP 10/26/24 06:59 QID EMELIA Ondansetron HCl 4 mg 10/16/24 22:15 Ondansetron Inj 2 Mg/Ml Inj 2 Ml IV 11/15/24 22:14 Q6H PRN NAUSEA OR VOMITING Protocol Sennosides 2 tab 10/16/24 22:15 Senna Tablet PO 11/15/24 22:14 BID PRN CONSTIPATION Protocol Sodium Chloride 3 ml 10/16/24 22:33 10/16/24 22:52 Sodium Chloride Rt Jaylene 0.9% 3 Ml Nebu INH 11/15/24 22:32 3 ml PRN PRN Administration SOLN Tamsulosin HCl 0.4 mg 10/17/24 09:00 10/18/24 08:12 Tamsulosin Hcl 0.4 Mg Capsule PO 11/16/24 08:59 0.4 mg QDAY EMELIA Administration Plan 74-year-old male with a past medical history of diabetes mellitus, hypertension, valley fever, aortic aneurysm, kidney stones and left hydronephrosis who was directed to go to the emergency room from his physician's office after urinalysis showed evidence of UTI. Complicated UTI Patient has history of urine cultures growing ESBL UTI patient also has history of left hydronephrosis and stent placement with removal. UA shows signs of urinary tract infection. CT abdomen pelvis : significant left hydronephrosis however ; stable when compared to previous CT scans 10/18 : Blood cultures negative. Plan: - On IV meropenem (10/17? ) for ESBL UTI hx - On PO doxycycline (516? ) - Patient denies SNF, will get ID consultation on Sunday re: discharge recommendations for PO antibiotics - Follow-up urine culture and stool culture results. JINA on CKD stage IIIb ?improving Hyperkalemia ?resolved History of BPH Was given hyperkalemia cocktail with resolution K trending 4.8 - 5 10/18 : JINA : 2.5 -> 2.0 -> 1.6 Plan: ? Continue Flomax ? IV fluids discontinued. Oral intake encouraged ? Renally dose medications ? Avoid nephrotoxins Chronic diarrhea - resolved Non-anion gap metabolic acidosis Improving with IV resuscitation, acidosis likely secondary to chronic diarrhea Patient has had multiple courses of antibiotic therapy for recurrent UTIs has had chronic diarrhea for the past 2 months 10/17 : C. difficile : negative 10/18 : BiCarb : 15.6 -> 16.4 Plan: ? Isolation precautions removed ? Final Stool cultures results pending - Anticipate improvement in acidosis as oral intake improved Primary Hypertension Currently normotensive without medications Repeat EKG : wnl. Plan: ? Will resume antihypertensives when required BP >120/80 - ED consulted Cardiology for abnormal EKG, appreciate input Type 2 Diabetes mellitus Last A1c: 5.9 Glucose : 126 -> 214 -> 80s Plan: ? Continue SSI ? Hypoglycemia protocol in place Case discussed with my attending Dr. Elsie Garcia MD PGY-1
[2024-10-19] MEDS: FLUCONAZOLE 100 MG TABLET 200 MG PO (07:25)
[2024-10-19] MEDS: TAMSULOSIN HCL 0.4 MG CAPSULE PO (07:25)
[2024-10-19] MEDS: MEROPENEM INJ 1,000 MG in SODIUM CHLORIDE 0.9% (Popper) 50 ML 100 MG IV ×2 (07:25→21:44)
[2024-10-19 07:44] VITALS: PULSE 74; RESP 16; RESP 98
[2024-10-19 08:00] VITALS: BP 123/84; PULSE 103; PULSE 86; RESP 14; TEMP 36.8; O2SAT 97
[2024-10-19] MEDS: DOXYCYCLINE INJ 100 MG in SODIUM CHLORIDE 0.9% (POP) 100 ML IV ×2 (08:10→22:04)
[2024-10-19] MEDS: MUPIROCIN OINT 2% 15 GM TUBE 2 GM TOP ×4 (08:56→22:09)
[2024-10-19 16:00] VITALS: BP 125/88; PULSE 91; PULSE 97; RESP 16; TEMP 37.2; O2SAT 98
--- NOTE | 2024-10-19 16:23 | PC.NURSE ---
[facility] down[facility] on 10/19/24 from 0900 to 0622.
--- NOTE | 2024-10-19 16:30 | PC.NURSE ---
[facility] downtime occurred on 10/19/24 from 0900 to 1622
[2024-10-19] MEDS: INSULIN LISPRO (AdmeLOG) 1 UNIT/0.01 ML UNIT SC ×2 (16:59→17:00)
[2024-10-19 20:00] VITALS: BP 105/83; PULSE 119; RESP 17; TEMP 37.7; O2SAT 95
[2024-10-20] VITALS: BP 99/74; PULSE 89; RESP 17; TEMP 37.2; O2SAT 97
--- NOTE | 2024-10-20 01:50 | ESPR_ITS ---
RE: OLIVER HERNANDEZ : 1950 DATE OF SERVICE: 10/19/2024 DATE OF SERVICE: 10/19/2024 SUBJECTIVE: Oliver Hernandez is doing a little better today. He does not complain of chest pain or shortness of breath. No cardiac issues so far. He is still MRSA positive. Started on mupirocin and continue medical management. The patient is also on multiple antibiotics for resistant urinary tract infection subsequently. Initial EKG was abnormal, but the patient does not have any signs of heart failure or ischemia. OBJECTIVE: Vital Signs: Blood pressure 105/80, pulse rate is 100, respirations 18, temperature normal. Neck: Supple. Lungs: Decreased breath sounds. Heart: S1 and S2 regular. No gallops or murmurs. Abdomen: Thin and soft. Extremities: Mild edema. IMPRESSION: 1. Urinary tract infection with resistant organisms, on multiple antibiotics. 2. Acute kidney injury, chronic kidney disease stage III. 3. Abnormal EKG initially, but no enzyme elevation, possibly no evidence of myocardial infarction type. 4. Hypertension. 5. Diabetes mellitus. RECOMMENDATIONS: Continue present medical management. No acute cardiac issues at this time. DT: 23:23:41 TT: 01:33:00 Ref: [id number] - TID: [id number]
[2024-10-20 01:52] VITALS: PULSE 80; RESP 16; RESP 97
[2024-10-20 04:00] VITALS: BP 109/72; PULSE 82; RESP 15; TEMP 36.1; O2SAT 97
[2024-10-20 06:00] VITALS: BMI 18.5
[2024-10-20] MEDS: MUPIROCIN OINT 2% 15 GM TUBE 2 GM TOP (06:01)
[2024-10-20 06:52] LABS: Basophils % (Auto) 1 % (0-2.5); Eosinophils # (Auto) 0.2 Thou/mm3 (0.0-0.5); Eosinophils % (Auto) 3 % (0-10); Hematocrit 31.5 % (41.0-53.0); Hemoglobin 10.6 g/dL (13.5-16.0); Immature Granulocytes % (Auto) 1 % (0-0); Lymphocytes # (Auto) 2.1 Thou/mm3 (1.0-4.8); Lymphocytes % (Auto) 26 % (10-50); Mean Corpuscular HGB Conc 33.7 g/dl (31.0-37.0); Mean Corpuscular Hemoglobin 31.5 pg (25.0-35.0); Mean Corpuscular Volume 94 fL (80-100); Monocytes # (Auto) 0.8 Thou/mm3 (0.0-0.8); Monocytes % (Auto) 10 % (0-12); Neutrophils # (Auto) 4.9 Thou/mm3 (1.8-7.7); Neutrophils % (Auto) 60 % (37-80); Nucleated Red Blood Cell % 0 /100 WBC (0); Platelet Count 211 Thou/mm3 (140-440); RDW Standard Deviation 50.5 fL (35.1-43.9); Red Blood Count 3.37 Miln/mm3 (4.50-5.90); White Blood Count 8.1 Thou/mm3 (3.8-10.6)
[2024-10-20 06:58] LABS: Alanine Aminotransferase 20 U/L (10-49); Albumin, Serum 3.2 gm/dL (3.4-4.8); Albumin/Globulin Ratio 1.3 (1.2-2.2); Alkaline Phosphatase 91 U/L (46-116); Anion Gap 10 (7-16); Aspartate Amino Transferase 13 U/L (0-34); BUN/Creatinine Ratio 17 Ratio (12-20); Bilirubin,Total 0.2 mg/dL (0.3-1.2); Blood Urea Nitrogen 26 mg/dL (9-23); Calcium 8.5 mg/dL (8.3-10.6); Calcium (Corrected) 9.1 mg/dL (8.5-10.1); Carbon Dioxide 16.6 mMol/L (20.0-31.0); Chloride 116 mMol/L (98-107); Creatinine (Component) 1.5 mg/dL (0.6-1.3); Estimated Creatinine Clearance 37.4 mL/min (>60); Globulin 2.5 gm/dL (2.3-3.5); Glucose 90 mg/dL (74-106); Magnesium 1.9 mg/dL (1.6-2.6); Osmolality,Calculated 289 (275-295); Potassium 4.3 mMol/L (3.4-5.1); Sodium 143 mMol/L (136-145); Total Protein 5.7 gm/dL (5.7-8.2); eGFR 48 See Note
[2024-10-20 08:00] VITALS: BP 121/83; PULSE 71; RESP 15; TEMP 37; O2SAT 98
--- NOTE | 2024-10-20 09:12 | PD.IDPROG ---
Subjective Subjective Interval history: 74 y/o with renal stone and eswl ina and june. stent placed at a prior procedure. removed later per pt admitted with non specific sx. has hx of cocci meningitis Exam Vital Signs Temp Pulse Resp BP Pulse Ox O2 Del Method 98.6 F 71 15 121/83 98 Room Air 10/20/24 08:00 10/20/24 08:00 10/20/24 08:00 10/20/24 08:00 10/20/24 08:00 10/20/24 08:00 Narrative Exam benign exam. alert. not ill appearing in the least Objective - Internal Medicine Labs 10/20/24 05:44 10/20/24 05:44 Labs: Laboratory Results - last 24 hr 10/20/24 05:44 WBC 8.1 RBC 3.37 L Hgb 10.6 L Hct 31.5 L MCV 94 MCH 31.5 MCHC 33.7 RDW Std Deviation 50.5 H Plt Count 211 Neut % (Auto) 60 Lymph % (Auto) 26 Woodson % (Auto) 10 Eos % (Auto) 3 Baso % (Auto) 1 Neut # (Auto) 4.9 Lymph # (Auto) 2.1 Woodson # (Auto) 0.8 Eos # (Auto) 0.2 Baso # (Auto) 0.0 Immature Gran # (Auto) 0.10 H Absolute Nucleated RBC 0.00 Immature Gran % 1 H Nucleated RBC % 0 Sodium 143 Potassium 4.3 Chloride 116 H Carbon Dioxide 16.6 L Anion Gap 10 BUN 26 H Creatinine 1.5 H Estim Creat Clear Calc 37.4 L eGFR 48 L BUN/Creatinine Ratio 17 Glucose 90 Calculated Osmolality 289 Calcium 8.5 Corrected Calcium 9.1 Phosphorus 3.0 Magnesium 1.9 Total Bilirubin 0.2 L AST 13 ALT 20 Alkaline Phosphatase 91 Total Protein 5.7 Albumin 3.2 L Globulin 2.5 Albumin/Globulin Ratio 1.3 Assessment & Plan A&P Narrative bacteriuria, sounds like asb hx ureteral stone, 80% uric acid noted. on stone analysis ckd met acidosis, mild. bicarb suppressed. hx of hydrocephalus and cocci meningitis. used to follow with dr rudolph (retired) and is on life long flucon for that at 400/day maintain flucon 400/day try po fosfomycin for what sounds like asb try to stop further stone development if uric acid elevated will see wed if still here but should go home by tomorrow Time Spent With Patient Time: Total time spent is greater than 50% in coordination of care (as documented) at patient's floor/unit and/or counseling patient:
--- NOTE | 2024-10-20 09:55 | ESDS_ITS ---
<Statement entered by Leon Zimmerman MD - 10/23/24 16:25> I reviewed above note and agree with findings and plans. I have also personally examined the patient with medicine team and went over assessment and plan with medical team including computer science intern and resident physician. <Statement entered by Tian Rodriguez MD - 10/20/24 17:56> Patient was examined with the team including attending physician. Note reviewed, I agree with the discharge plan as documented. - Tian Rodriguez MD PGY2 Disclaimer: The document may contain phonetic/typographic errors due to voice recognition software. These errors are purely due to imperfections in the software program and should not be misconstrued in any way to compromise the victor bstance of the patient's medical care during this visit. Planned Discharge Date 10/20/24 DS: Providers Provider Date of admission: 10/17/24 02:06 Primary care physician: Nerissa Pavon NP Admitting Provider: Derek Sanchez MD Attending Provider on Admission: Leon Zimmerman MD Consults: 10/16/24 21:16 Consult to Cardiology Stat Comment: Consulting Provider: Garo Browning Instructions: Abnormal EKG 10/17/24 05:41 Referral Registered Dietitian Routine Comment: 10/18/24 09:11 Referral Physical Therapy Routine Comment: Physician Instructions: 10/20/24 06:00 Consult to Infectious Diseases Routine Comment: Consulting Provider: Huber Combs Attending Provider on DC: Leon Zimmerman MD Discharging Provider: Rico Garcia MD Anticipated date of discharge: 10/20/24 DS: Diagnosis Problem List Completed Was Problem List Reviewed/Reconciled?: Yes Hospital Course Hospital Course Hospital course: 74-year-old male with past medical history of diabetes, hypertension, valley fever, aortic aneurysm, kidney stones, left hydronephrosis who was sent to the ED from his PCPs office due to UTI. Patient was admitted for complicated UTI. During hospital stay patient was treated with IV antibiotics later transitioned to p.o. route he had ID specialist consulted as patient has cultures with ESBL. At this time patient is medically stable for discharge. Follow up with primary care physician within 1 week of discharge. Continue home medications as prescribed You have been prescribed doxycycline antibiotic for 5 more days. Should any symptoms recur or worsen patient is instructed to return to the ED. Problem List: Complicated UTI JINA on CKD stage IIIb ?resolved Hyperkalemia ?resolved History of BPH Chronic diarrhea - resolved Non-anion gap metabolic acidosis Primary Hypertension Type 2 Diabetes mellitus Case discussed with my senior Dr. Rodriguez and my attending Dr. Elsie Garcia MD PGY-1 Status at Discharge Functional status at discharge: independent ambulation Overall status at discharge: patient is back to baseline Time Spent with Patient Time attestation: Total time spent providing and/or coordinating discharge services: Time spent: Greater than 30 minutes Home Health Home Health Referral Orders: 10/20/24 09:54 Home Health Referral Routine Reason For Exam: PT Home-Bound The patient must either because of illness or injury, need the aid of supportive devices such as crutches, canes, wheelchairs, and walkers; the use of special transportation; or the assistance of another person in order to leave their place of residence; OR have a condition such that leaving his or her home is medically contraindicated. In addition, the patient also meets the following criteria: patient is normally unable to leave the home and leaving home requires considerable taxing effort. Addendum to Home Health Certification Practitioner's Certification: I certify that the patient has been under my care in the hospital and the care of attending physician (see below). We had a joro-[id number] encounter on (see date below). My clinical findings indicate that the patient is home bound per the above criteria and the Home Health Services noted in these orders are medically necessary. The primary reason for the [id number] encounter is related to the fact that the patient requires home health services. Date Certifying [id number] Physician Encounter: 10/16/24 Physician's Name who will Assume Oversight for Services: Nerissa Pavon Physician's Phone No.who will Assume Oversight for Service: RETAIL PARTS PROFESSIONAL - Community Resources: No PT to Evaluate: Yes PT to evaluate and provide a treatmnet plan to increase patient's mobility and strength. Wound Care: No IV Therapy: No RN Safety Evaluation: Yes RN to evaluate and create a plan of care that will produce positive outcomes. Palliative Treatment: No Palliative treatment and evaluate the need for hospice. Home Health Aide - Personal Care: No Home Health Aide to assist with any ADL's. Exam Vital Signs Temp Pulse Resp BP Pulse Ox O2 Del Method 98.6 F 71 15 121/83 98 Room Air 10/20/24 08:00 10/20/24 08:00 10/20/24 08:00 10/20/24 08:00 10/20/24 08:00 10/20/24 08:00 Narrative Exam Physical Exam GENERAL: NAD, AAOx3 HEENT: Moist mucosa. Eyes open, symmetrical, & clear CARDIO: Heart RRR, no obvious murmurs PULM: No noted coughing/dyspnea CTA B/L, no R/W/R GI: Abdomen soft, nondistended, no pain on palpation. BSx4 SKIN/MSK/EXT: No wounds/rashes/edema/amputations, no pain on palpation. Pedal pulses present B/L NEURO: AAOx3, no focal neuro deficits, able to move all 4 extremities Discharge Plan Plan Patient Disposition: Home w/HOME HEALTH Care Plan Goals: Follow up with primary care physician within 1 week of discharge. Continue home medications as prescribed You have been prescribed doxycycline antibiotic for 5 more days. Should any symptoms recur or worsen patient is instructed to return to the ED. Prescriptions/Referrals Prescriptions/Med Rec: New doxycycline hyclate 100 mg tablet,delayed release (DR/EC) 100 mg PO BID 5 Days Qty: 10 0RF Continued finasteride 5 mg tablet 5 mg PO QDAY fluconazole 200 MG tablet 400 mg PO HS Qty: 0 amlodipine [Norvasc] 10 MG tablet 10 mg PO QDAY Qty: 0 Patient Comments: patient does not now medications omega 6-tuo-oyx-fish oil 500-100 mg Capsule 1 cap PO QDAY Patient Comments: patient does not now medications tamsulosin 0.4 mg Capsule 0.4 mg PO QDAY acetaminophen 650 mg Tablet Extended Release 650 mg PO Q8H PRN (Reason: Pain) glipizide 2.5 mg tablet extended release 24hr 2.5 mg PO BID Patient Comments: TAKE 1 TABLET BY MOUTH TWICE A DAY WITH A MEAL FOR 90 DAYS Eliquis 2.5 mg Tablet 2.5 mg PO BID Qty: 28 0RF Janumet 50-1,000 mg tablet 1,000 tab PO BID Patient Comments: TAKE 1 TABLET BY MOUTH TWICE A DAY WITH A MEAL sertraline 25 mg Tablet 25 mg PO QDAY Referrals: Nerissa Pavon WEATHERSEAL TECHNICIAN [Primary Care Provider] - Patient/Caregiver Discharge Instructions Print Language: Peruvian Stand Alone Forms: Alina Award Info., Patient Portal Info Letter Discharge Order Discharge Orders: Discharge (Routine); Ordered 10/20/24 Ordered By: Rico Garcia Quality Discharge Quality Measures VTE prophylaxis
--- NOTE | 2024-10-20 10:00 | PC.CC ---
Addendum entered by Bria Damico RN 10/20/24 15:57: Pt booked with [facility] is 10/22 Addendum entered by Bria Damico RN 10/20/24 15:07: Referrals sent to HH agencies Original Note: pt entered into [facility], no HH agency preference documented
[2024-10-20] MEDS: TAMSULOSIN HCL 0.4 MG CAPSULE PO (10:01)
[2024-10-20] MEDS: FOSFOMYCIN PWD 3 GM PACKET (NON-FORMULARY) PO (10:35)
[2024-10-20 12:00] VITALS: BP 116/84; PULSE 82; RESP 14; TEMP 36.8; O2SAT 96
--- NOTE | 2024-10-20 12:12 | ESPR_ITS ---
<Statement entered by Garo Browning MD - 10/21/24 08:26> The patient is personally examined evaluated again the patient is doing a lot better now no cardiac symptoms chest pain and shortness of breath evaluate the patient with PGY 3 patient can be discharged home safely I will see the patient for follow-up as an outpatient do cardiac workup Documentation for date of: 10/20/24 Subjective Subjective Interval history: Patient was examined bedside this morning, no acute overnight event. Patient denies chest pain, no any other cardiac. Follow-up with Dr. Browning outpatient. Exam Vital Signs Temp Pulse Resp BP Pulse Ox O2 Del Method 98.6 F 71 15 121/83 98 Room Air 10/20/24 08:00 10/20/24 08:00 10/20/24 08:00 10/20/24 08:00 10/20/24 08:00 10/20/24 08:00 Narrative Exam GENERAL: Comfortable adult seen resting comfortably in hospital bed, no acute distress, cachectic looking HEENT: Normocephalic, atraumatic. Pupils are equal and reactive. Oral mucosa is moist. NECK: Supple, nontender, no JVD CHEST: Symmetrical, atraumatic and with equal expansion ,Nontender on palpation CARDIOVASCULAR: Heart regular rhythm & rate. S1/S2. no murmur or gallop rub or extra beats. LUNGS: Clear to auscultation bilaterally with symmetrical chest rise. No laboring tachypnea or wheezing. No intercostal subcostal retraction. No rales and no rhonchi. ABDOMEN: Soft, flat, nontender to palpation, no guarding or rebound tenderness. Active and normal bowel sounds. EXTREMITIES:Moves all 4 extremities,No B/L LE edema. SKIN: Warm and dry, no jaundice or rashes noted. NEURO: Patient is AO x 3, Cranial nerves II through XII grossly intact. There is no focal neurologic deficits noted. PSYCHIATRIC: Patient is in normal mood, cooperative, no SI or HI or hallucinations. Objective Labs 10/20/24 05:44 10/20/24 05:44 Labs: Laboratory Results - last 24 hr 10/20/24 05:44 WBC 8.1 RBC 3.37 L Hgb 10.6 L Hct 31.5 L MCV 94 MCH 31.5 MCHC 33.7 RDW Std Deviation 50.5 H Plt Count 211 Neut % (Auto) 60 Lymph % (Auto) 26 Esmeralda % (Auto) 10 Eos % (Auto) 3 Baso % (Auto) 1 Neut # (Auto) 4.9 Lymph # (Auto) 2.1 Esmeralda # (Auto) 0.8 Eos # (Auto) 0.2 Baso # (Auto) 0.0 Immature Gran # (Auto) 0.10 H Absolute Nucleated RBC 0.00 Immature Gran % 1 H Nucleated RBC % 0 Sodium 143 Potassium 4.3 Chloride 116 H Carbon Dioxide 16.6 L Anion Gap 10 BUN 26 H Creatinine 1.5 H Estim Creat Clear Calc 37.4 L eGFR 48 L BUN/Creatinine Ratio 17 Glucose 90 Calculated Osmolality 289 Uric Acid 5.0 Calcium 8.5 Corrected Calcium 9.1 Phosphorus 3.0 Magnesium 1.9 Total Bilirubin 0.2 L AST 13 ALT 20 Alkaline Phosphatase 91 Total Protein 5.7 Albumin 3.2 L Globulin 2.5 Albumin/Globulin Ratio 1.3 Quality Measures Quality Measures none Advance care planning discussed with:: patient Assessment & Plan Assessment Current Active Medications: Generic Name Dose Route Start Last Admin Trade Name Freq PRN Reason Stop Dose Admin Acetaminophen 650 mg 10/16/24 22:15 Acetaminophen 325 Mg Tablet PO 11/15/24 22:14 Q6H PRN PAIN OR FEVER > 101 Protocol Hydrocodone Bitart/Acetaminophen 1 tab 10/16/24 22:15 Hydrocodone/Apap 5/325 Tablet PO 10/21/24 22:14 Q6HR PRN PAIN Protocol Amlodipine Besylate 10 mg 10/17/24 09:00 10/17/24 08:40 Amlodipine Besylate 5 Mg Tablet PO 11/16/24 08:59 10 mg QDAY EMELIA Administration Dextrose 25 ml 10/16/24 22:15 Dextrose 50%-Water Inj 50 Ml Syringe IV 11/15/24 22:14 Q15MIN PRN BG 50-70 responsive npo pt Dextrose 50 ml 10/16/24 22:15 Dextrose 50%-Water Inj 50 Ml Syringe IV 11/15/24 22:14 Q15MIN PRN BG <50 OR BG <70 & pt unresponsive Fluconazole 400 mg 10/21/24 09:00 Fluconazole 100 Mg Tablet PO 10/28/24 08:59 QDAY EMELIA Glucagon 1 mg 10/16/24 22:15 Glucagon Inj 1 Mg Vial IM Q15MIN PRN BG <70, and no IV access Insulin Human Lispro 0 unit 10/17/24 07:30 10/20/24 08:43 Insulin Lispro (Admelog) 1 Unit/0.01 Ml Unit SC 11/16/24 07:29 Not Given AC [facility] Protocol Mupirocin 2 gm 10/19/24 07:00 10/20/24 06:01 Mupirocin Oint 2% 15 Gm Tube TOP 10/26/24 06:59 1 appln QID EMELIA Administration Ondansetron HCl 4 mg 10/16/24 22:15 Ondansetron Inj 2 Mg/Ml Inj 2 Ml IV 11/15/24 22:14 Q6H PRN NAUSEA OR VOMITING Protocol Sennosides 2 tab 10/16/24 22:15 Senna Tablet PO 11/15/24 22:14 BID PRN CONSTIPATION Protocol Sodium Chloride 3 ml 10/16/24 22:33 10/16/24 22:52 Sodium Chloride Rt Jaylene 0.9% 3 Ml Nebu INH 11/15/24 22:32 3 ml PRN PRN Administration SOLN Tamsulosin HCl 0.4 mg 10/17/24 09:00 10/20/24 10:01 Tamsulosin Hcl 0.4 Mg Capsule PO 11/16/24 08:59 0.4 mg QDAY EMELIA Administration Plan 74 yrs old male with PMH of HTN, valley fever , aortic aneurysm, DM, kidney stones and left hydronephrosis came to ED for UTI sent by his PCP . He has h/o Dr Laws putting ureteral stent in June for kidney stones, which was removed 2 weeks later.most recent urine culture grew ESBL, and he was prescribed p.o. antibiotics, patient reported improvement in his symptoms, but is now concerned due to diarrhea and recurrent UTI. Initial EKG in the ER showed first-degree AV block and sinus rhythm, no evidence of STEMI or reciprocal changes on EKG. as per the patient he saw Dr. Browning years ago and at that time cardiac workup was normal. He also states that last year he had a hip fracture and was admitted in the hospital and they found out about his kidney stone since then he had lost almost 60 pounds. ED vitals: BP?118/78, P?96, RR?18, temperature?98 ED labs : WBC?11.9, hemoglobin?10.9, ESR?25, BUN?35, creatinine?1.9, LDL?60, HDL?28 TSH is the 0.33 UA positive for UTI ED imaging : head Ct -No ventricular enlargement,Mild chronic subdural hygromas with no mass effect, No acute hemorrhage or mass effect . CT abdomen - Aneurysmal dilatation ascending thoracic aorta, No pneumonia or pulmonary edema or pleural diseaseSignificant left hydronephrosis, the patient's left ureteral stent is no longer identified, Marked thickening of the urinary bladder wall, consider cystitis and vesicoureteral reflux #Aneurysmal dilatation ascending thoracic aorta # HTN - Ct Scan showed AP dimension ascending thoracic aorta 4.5 cm -His BP is 116/78 - He takes amlodipine at home which is currently on hold. -Medical management for aneurysmal dilation of ascending thoracic aorta, he will need annual CT surveillance - trop negative - He had done cardiac workup with Dr Browning in 2019 which was normal -he denises any chest pain . - repeat EKG didn't show any significant st changes . -Follup with Dr Browning outpatient for wardiac workup . currently stable Rest of the medical management as per primary team Discussed with my attending Dr. Nam Talley MD, PGY-3
[2024-10-20 12:18] LABS: Hepatitis C Antibody Non Reactive (Non React)
--- NOTE | 2024-10-20 12:35 | ESCONSULT_ITS ---
RE: JANE OWENS : 1950 DATE OF CONSULTATION: 10/20/2024 REFERRING PHYSICIAN: Dr. Sanchez and Ms. Pavon, nurse practitioner at Dr. Pringle's office REASON FOR CONSULTATION: Asymptomatic bacteriuria and history of cocci meningitis. HISTORY OF PRESENT ILLNESS: The patient is an unfortunate 74-year-old man with a history of cocci meningitis. 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 He has had removal by [facility] in January and again in June. He had a stent at one time that was later removed. He had prior right hip fracture repair and left total knee replacement. 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 He used to follow up with Dr. Alfonso. He has not seen me in clinic and that is okay. He just needs to stay on treatment. His dose of fluconazole has been reduced. He did receive intrathecal amphotericin B for a while. I do not know what his last LP was. He does not know either. He denies other health problems. Medications suggest some hypertension, BPH, borderline diabetes on oral therapy. He is on no medication for uric acid stones that were discovered in January at first. The original stone procedures look like they are in January per the patient. He currently came in with positive urine, but did not have any symptoms. He has had a prior pinning of a hip fracture by Dr. Parson in 12/31. PMH: DM cocci meningitis with hydrocephalus ureteral stones, mostly uric acic PSH: [facility] for intrathecal rx hip pinning in fall of 2023 when stone was first found tka nkma imm; Neg but had 2 covid shots and possibly pneumococcal fh neg sh. neg PHYSICAL EXAMINATION: GENERAL: The patient looks well. HEENT: Benign. HEART: Benign LUNGS: Benign ABDOMEN: Benign. He has been on Sunday morning early about 2:00 a.m., so I will just maintain him on fluconazole at 400 mg daily and you can treat his potentially recurrent stone history with something for uric acid if his uric acid levels are elevated. A uricosuric may help, but they may increase his frequency of stones, so be careful about that. You may want to consult with urology on that one. He has chronic kidney disease and probably ASB, so we will go ahead and give him fosfomycin for that. If you wish to give him something else, you can give him oral doxycycline but 7 days which is likely fine. He has been on treatment now for about 3 days, so about 4 more days should be fine as 7d is standard rx for uti. I am going to go ahead and give him the fosfomycin as bc are neg and you may do other tests as you see prudent. I will see him again Sunday if he remains, but for now he can probably go home by later tomorrow morning at the latest. DT: 09:46:51 TT: 11:34:00 Ref: [id number] - TID: [id number] MTDD
== END 2024-10-20 14:20 | disposition home health service (06) | DRG 690 ==
LOC: SERX 23:18 → SERHOLD 10-17 02:40 → S2NX 10-17 05:04
PROVIDERS: Internal Medicine Infectious Disease; Nurse Practitioner Family; Student in an Organized Health Care Education/Training Program; Admitting Provider Internal Medicine; Emergency Provider Emergency Medicine; PCP Nurse Practitioner Family; Visit Provider Internal Medicine
DX: N13.6 Pyonephrosis (principal); E87.20 Acidosis, unspecified; Z16.12 Extended spectrum beta lactamase (ESBL) resistance; N18.9 Chronic kidney disease, unspecified; I12.9 Hypertensive chronic kidney disease with stage 1 through stage 4 chronic kidney disease, or unspecified chronic kidney disease; E11.22 Type 2 diabetes mellitus with diabetic chronic kidney disease; I44.0 Atrioventricular block, first degree; I71.9 Aortic aneurysm of unspecified site, without rupture; E87.5 Hyperkalemia; N17.9 Acute kidney failure, unspecified; K52.9 Noninfective gastroenteritis and colitis, unspecified; N18.32 Chronic kidney disease, stage 3b; N20.0 Calculus of kidney; I71.21 Aneurysm of the ascending aorta, without rupture; N40.0 Benign prostatic hyperplasia without lower urinary tract symptoms; N13.70 Vesicoureteral-reflux, unspecified; Z78.9 Other specified health status; Z79.84 Long term (current) use of oral hypoglycemic drugs; Z87.442 Personal history of urinary calculi; Z87.440 Personal history of urinary (tract) infections; Z91.199 Patient's noncompliance with other medical treatment and regimen due to unspecified reason; Z96.652 Presence of left artificial knee joint; Z86.61 Personal history of infections of the central nervous system
CPT/HCPCS: 36415; 70450; 71046; 71250; 74176; 80048; 80053; 80061; 80069; 80076; 81001; 82150; 82248; 83036; 83605; 83690; 83735; 84100; 84145; 84439; 84443; 84484; 84550; 85025; 85610; 85652; 86140; 86803; 87015; 87040; 87045; 87046; 87077; 87081; 87086; 87186; 87205; 87400; 87493; 87811; 87899; 93005; 94640; 96361; 96365; 96367; 96375; 97162; 99285; J0696; J1815; J2185; J2405; J3475; J3490; J7030; J7120; A9270

== ENCOUNTER → 2024-11-25 | Outpatient (CLI) | payer MEDICARE, MEDICAID, SELFPAY ==
--- NOTE | 2024-11-25 12:41 | XR_ITS ---
Examination: Abdomen AP single view Technique: AP portable supine abdomen, single view Exam date and time: November 25, 2024 1300 hours INDICATIONS: Diarrhea 3 weeks. FINDINGS: Heavy vascular calcification Apparent ventriculoperitoneal shunt tube Additional tubing over the right lateral abdomen Right common iliac stent Prostatic radiation seeds Severe osteopenia Moderate stool throughout the colon, no obstruction IMPRESSION: Moderate stool throughout the colon, no obstruction
== END | disposition home or self-care (01) ==
LOC: CDIM 12:32
PROVIDERS: PCP Nurse Practitioner Family; Referring Provider Specialist; Visit Provider Specialist
DX: K57.10 Diverticulosis of small intestine without perforation or abscess without bleeding (principal); I10 Essential (primary) hypertension; M85.88 Other specified disorders of bone density and structure, other site
CPT/HCPCS: 74018

== ENCOUNTER → 2025-02-04 | Outpatient (CLI) | payer MEDICARE, MEDICAID, SELFPAY ==
[2025-02-04 11:26] LABS: Basophils # (Auto) 0.0 Thou/mm3 (0.0-0.2); Basophils % (Auto) 0 % (0-2.5); Eosinophils # (Auto) 0.2 Thou/mm3 (0.0-0.5); Eosinophils % (Auto) 2 % (0-10); Hematocrit 36.5 % (41.0-53.0); Hemoglobin 11.4 g/dL (13.5-16.0); Immature Granulocytes Auto 0.08 Thou/mm3 (0.00-0.00); Lymphocytes # (Auto) 2.3 Thou/mm3 (1.0-4.8); Lymphocytes % (Auto) 25 % (10-50); Mean Corpuscular HGB Conc 31.2 g/dl (31.0-37.0); Mean Corpuscular Hemoglobin 31.0 pg (25.0-35.0); Mean Corpuscular Volume 99 fL (80-100); Monocytes # (Auto) 0.8 Thou/mm3 (0.0-0.8); Monocytes % (Auto) 9 % (0-12); Neutrophils # (Auto) 5.7 Thou/mm3 (1.8-7.7); Neutrophils % (Auto) 63 % (37-80); Nucleated Red Blood Cell # 0.00 Thou/mm3 (0.00-0.00); Nucleated Red Blood Cell % 0 /100 WBC (0); Platelet Count 239 Thou/mm3 (140-440); RDW Standard Deviation 49.5 fL (35.1-43.9); Red Blood Count 3.68 Miln/mm3 (4.50-5.90); White Blood Count 9.1 Thou/mm3 (3.8-10.6)
[2025-02-04 11:41] LABS: Prostate Specific Antigen 1.54 ng/mL (0-4.00)
[2025-02-04 11:45] LABS: Alanine Aminotransferase 13 U/L (10-49); Albumin, Serum 3.9 gm/dL (3.4-4.8); Albumin/Globulin Ratio 1.4 (1.2-2.2); Alkaline Phosphatase 87 U/L (46-116); Anion Gap 13 (7-16); Aspartate Amino Transferase 12 U/L (0-34); BUN/Creatinine Ratio 22 Ratio (12-20); Bilirubin,Total 0.3 mg/dL (0.3-1.2); Blood Urea Nitrogen 38 mg/dL (9-23); Calcium 9.8 mg/dL (8.3-10.6); Calcium (Corrected) 9.9 mg/dL (8.5-10.1); Carbon Dioxide 23.1 mMol/L (20.0-31.0); Cardiac Risk Estimate 3.6 RATIO (4.0-6.7); Chloride 111 mMol/L (98-107); Cholesterol 147 mg/dL (132-200); Creatinine (Component) 1.7 mg/dL (0.6-1.3); Globulin 2.7 gm/dL (2.3-3.5); Glucose 113 mg/dL (74-106); HDL Cholesterol 41 mg/dL (40-60); LDL Cholesterol,Calculated 90 mg/dL (0-130); Osmolality,Calculated 302 (275-295); Potassium 4.8 mMol/L (3.4-5.1); Sodium 147 mMol/L (136-145); Thyroid Stimulating Hormone 1.12 uIU/mL (0.55-4.78); Total Protein 6.6 gm/dL (5.7-8.2); Triglycerides 81 mg/dL (30-150); eGFR 42 See Note
[2025-02-04 11:47] LABS: Creatinine MALB Rnd Ur 36 mg/dL (30-125)
[2025-02-04 11:50] LABS: Glucose Estimated Average 126 mg/dL (80-131); Hemoglobin A1C 6.0 % Hgb (4.8-6.0)
[2025-02-04 12:03] LABS: Microalbumin Creat Ratio 1467 mg/gCrea (<30); Microalbumin, Random Urine 528 mg/L (0-300)
== END | disposition home or self-care (01) ==
PROVIDERS: PCP Nurse Practitioner Family; Referring Provider Nurse Practitioner Family; Visit Provider Nurse Practitioner Family
DX: Z00.00 Encounter for general adult medical examination without abnormal findings (principal); N40.1 Benign prostatic hyperplasia with lower urinary tract symptoms; E11.40 Type 2 diabetes mellitus with diabetic neuropathy, unspecified; R50.9 Fever, unspecified; I10 Essential (primary) hypertension; E78.2 Mixed hyperlipidemia
CPT/HCPCS: 36415; 80053; 80061; 82043; 82570; 83036; 84153; 84443; 85025